=== PATIENT | female | born 1935 | race Hispanic/Latino ===

== ENCOUNTER 2016-11-28 12:57 | Emergency (ER) | payer MEDICARE, SELFPAY, OTHER ==
[2016-11-28 12:57] VITALS: BMI 24.5
[2016-11-28 13:09] VITALS: BP 146/90; PULSE 70; RESP 17; TEMP 97.9; O2SAT 95
[2016-11-28] MEDS ORDERED: TDAP Vaccine 0.5 mL Syr IM ONE (13:26)
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
[2016-11-28] MEDS ORDERED: Amoxicillin-Clav 875-125 mg Tab PO STA (14:11)
--- NOTE | 2016-11-28 14:12 | CT ---
PROCEDURE: CT HEAD WITHOUT CONTRAST. HISTORY: head injury/ pain COMPARISON: 03/19/2013 TECHNIQUE: Axial computed tomography images were obtained through the head/brain without intravenous contrast. Radiation dose: Total exam DLP = 689 mGy-cm. This CT exam was performed using one or more of the following dose reduction techniques: Automated exposure control, adjustment of the mA and/or kV according to patient size, and/or use of iterative reconstruction technique. FINDINGS: HEMORRHAGE: No intracranial hemorrhage. BRAIN: No mass effect or edema. 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 There is also an old infarct in the right parietal white matter. VENTRICLES: Unremarkable. No hydrocephalus. CALVARIUM: Unremarkable. PARANASAL SINUSES: Unremarkable as visualized. No significant inflammatory changes. MASTOID AIR CELLS: Unremarkable as visualized. No inflammatory changes. OTHER FINDINGS: None. IMPRESSION: No acute findings
--- NOTE | 2016-11-28 15:47 | RAD ---
PROCEDURE: Radiographs of the Left Forearm HISTORY: pain COMPARISON: None available. TECHNIQUE: Frontal and lateral views obtained. FINDINGS: BONES: No fracture or destructive lesion. JOINT SPACES: Unremarkable. OTHER FINDINGS: None. IMPRESSION: Unremarkable radiographs of the left forearm.
--- NOTE | 2016-11-28 15:48 | RAD ---
PROCEDURE: Left Hand Radiographs. HISTORY: pain COMPARISON: None. FINDINGS: BONES: Normal. No fracture. JOINTS: Mild degenerative changes in the PIP and DIP joints SOFT TISSUES: Normal. OTHER FINDINGS: None. IMPRESSION: No acute findings
== END 2016-11-28 15:21 | disposition home or self-care (01) ==
LOC: ED 12:57
DX: S50.812A Abrasion of left forearm, initial encounter (principal); S60.512A Abrasion of left hand, initial encounter; S51.812A Laceration without foreign body of left forearm, initial encounter; V43.52XA Car driver injured in collision with other type car in traffic accident, initial encounter; I10 Essential (primary) hypertension; Z23 Encounter for immunization; F17.210 Nicotine dependence, cigarettes, uncomplicated

== ENCOUNTER 2017-07-29 14:24 | Emergency (ER) | payer MEDICARE, SELFPAY ==
[2017-07-29] MEDS ORDERED: Nitroglycerin 2% Ointment Foilpak UD TOP STA (14:43)
[2017-07-29 14:44] VITALS: BMI 22.4
[2017-07-29 14:45] VITALS: O2SAT 100
--- NOTE | 2017-07-29 14:51 | ED PDOC ---
Arrival/HPI - General Chief Complaint: Shortness Of Breath Time Seen by Provider: 07/29/17 14:26 Historian: Patient, EMS - History of Present Illness Narrative History of Present Illness (Text): 07/29/17 14:45 A 81 year old female, whose past medical history includes CABG, CVA, hypothyroidism, hypertension, and hyperlipidemia, presents to the emergency department complaining of difficulty breathing that began today. Per EMS, patient's blood pressure was 220/100. No medications were distributed. Patient was seen immediately at bedside and patient was set on BiPAP and is comfortable here in the ER. Patient denies any fever, chills, body aches, cough, or any other complaints. PMD : Dr. Haley Past Medical History - Provider Review Nursing Documentation Reviewed: Yes - Tetanus Immunization Tetanus Immunization: Unknown - Reproductive Menopause: Yes - Cardiac Hx Hypertension: Yes Other/Comment: CABG - Neurological HX Cerebrovascular Accident: Yes - HEENT Hx HEENT Disorder: (vocal cord polyp removed) - Endocrine/Metabolic Hx Hypothyroidism: Yes - Hematological/Oncological Hx Blood Transfusions: No Hx Blood Transfusion Reaction: No - Musculoskeletal/Rheumatological Hx Falls: No - Gastrointestinal Other/Comment: hx. of polyp removal - Psychiatric Hx Anxiety: Yes Hx Substance Use: No - Surgical History Hx Open Heart Surgery: Yes Other/Comment: vocal cord polyp - Anesthesia Hx Anesthesia: Yes Hx Anesthesia Reactions: No Hx Malignant Hyperthermia: No - Suicidal Assessment Feels Threatened In Home Enviroment: No Family/Social History - Physician Review Nursing Documentation Reviewed: Yes Family/Social History: No Known Family HX Smoking Status: Current Some Days Smoker Hx Alcohol Use: No Hx Substance Use: No Hx Substance Use Treatment: No Allergies/Home Meds Allergies/Adverse Reactions: Allergies No Known Allergies Allergy (Verified 07/29/17 14:45) Home Medications: Home Meds Medication Instructions Recorded Confirmed Alprazolam 0.25 mg PO BID 01/08/12 03/19/13 Aspirin 81 mg PO DAILY 01/08/12 03/19/13 Clopidogrel [Plavix] 75 mg PO DAILY 01/08/12 03/19/13 Metoprolol Tartrate 50 mg PO BID 01/08/12 03/19/13 Simvastatin [Simvastatin] 03/19/13 03/19/13 Review of Systems - Physician Review All systems were reviewed & negative as marked: Yes - Review of Systems Constitutional: absent: Fevers, Night Sweats Respiratory: SOB. absent: Cough Musculoskeletal: absent: Myalgias Physical Exam Vital Signs Reviewed: Yes Vital Signs Temp Pulse Resp BP Pulse Ox 07/29/17 17:28 85 23 129/75 100 07/29/17 15:36 146/99 H 07/29/17 15:33 82 20 146/99 H 100 07/29/17 15:05 98.0 F 07/29/17 14:44 94 H 18 190/113 H 100 Temperature: Afebrile Blood Pressure: Hypertensive Pulse: Regular Respiratory Rate: Normal Appearance: Positive for: Well-Appearing Pain Distress: None Mental Status: Positive for: Alert and Oriented X 3 - Systems Exam Head: Present: Atraumatic, Normocephalic Pupils: Present: PERRL Extroacular Muscles: Present: EOMI Conjunctiva: Present: Normal Mouth: Present: Moist Mucous Membranes Neck: Present: Normal Range of Motion Respiratory/Chest: Present: Wheezes, Rales (diffused), Rhonchi Cardiovascular: Present: Regular Rate and Rhythm, Normal S1, S2. No: Murmurs Abdomen: Present: Normal Bowel Sounds. No: Tenderness, Distention, Peritoneal Signs Back: Present: Normal Inspection Upper Extremity: Present: Normal Inspection. No: Cyanosis, Edema Lower Extremity: Present: Edema (+1 bilaterally) Neurological: Present: GCS=15, CN II-XII Intact, Speech Normal Skin: Present: Warm, Dry, Normal Color. No: Rashes Psychiatric: Present: Alert, Oriented x 3, Normal Insight, Normal Concentration Medical Decision Making ED Course and Treatment: 07/29/17 14:46 Impression: 81 year old female with difficulty breathing. Physical exam shows lungs have diffused rales, wheezing, and rhonchi; +1 edema in lower extremities bilaterally. Differential Diagnosis included but are not limited to: CHF Exacerbation vs COPD Exacerbation vs Pneumonia Plan: -- EKG -- Chest X-ray -- Arterial Blood Gas -- Venous Blood Gas -- Labs -- Lasix 40 mg IV -- Nitroglycerin paste -- Blood Culture -- Urine Culture -- Urinalysis -- Reassess and disposition Prior Visits: Notes and results from previous visits were reviewed. Patient was last seen in the emergency department on 11/28/2016 for left forearm left hand abrasion. Patient was discharged home. Progress Notes: CXR PORTABLE IMPRESSION: Mild vascular and interstitial congestion right greater than left 07/29/17 15:35 Patient is feeling much better but still having symptoms. Lungs have wheezing/ rhonchi. Treating with Duonebs and solumdrol. CXR reviewed and noted. Repeat 146/99 07/29/17 15:45 EKG: NSR at 89bpm with SA, no ST elevations, q waves anteriorly, nl intervals. Case discussed with Dr. Rivera who will accept patient to his service. 07/29/17 17:50 ABG appreciated. FiO2 decreased from 100 to 40 percent. Will continue BiPap. Case was discussed with Dr. Giraldo who agrees with treatment and recommends adding Lovenox SC. - Critical Care Critical Care Minutes: 30 minutes - Lab Interpretations Lab Results: 07/29/17 14:45 07/29/17 14:45 Lab Results 07/29/17 16:17: pCO2 43, pO2 394.0 H, HCO3 27.9, ABG pH 7.42, ABG Total CO2 29.2 H, ABG O2 Saturation 99.9 H, ABG O2 Content 19.8, ABG Base Excess 2.9, ABG Hemoglobin 13.9, ABG Carboxyhemoglobin 2.8 H, POC ABG HHb (Measured) 0.1, ABG Methemoglobin 0.9, ABG O2 Capacity 19.8, Hgb O2 Saturation 96.2, FiO2 100.0 07/29/17 14:45: Sodium 141, Chloride 98, Potassium 3.7, Carbon Dioxide 28, Anion Gap 19, BUN 15, Creatinine 0.9, Est GFR ( Amer) > 60, Est GFR (Non- Af Amer) > 60, Random Glucose 123 H, Calcium 9.4, Total Bilirubin 0.8, AST 63 H , ALT 58 H, Alkaline Phosphatase 182 H, Lactate Dehydrogenase 892 H, Total Creatine Kinase 163, Troponin I 0.02 D, NT-Pro-B Natriuret Pep 3950 H, Total Protein 8.0, Albumin 4.6, Globulin 3.4, Albumin/Globulin Ratio 1.4 07/29/17 14:45: pO2 42, VBG pH 7.27 L, VBG pCO2 65.0 H, VBG HCO3 29.8 H, VBG Total CO2 31.8 H, VBG O2 Sat (Calc) 76.1 H, VBG Base Excess 1.2, VBG Potassium 4.1, Sodium 136.0, Chloride 98.0, Glucose 124 H, Lactate 1.4, FiO2 21.0, Venous Blood Potassium 4.1 07/29/17 14:45: PT 11.4, INR 1.00, APTT 33.3 07/29/17 14:45: WBC 6.0 D, RBC 5.02, Hgb 15.3, Hct 45.7, MCV 91.0, MCH 30.5, MCHC 33.5, RDW 19.3 H, Plt Count 137, MPV 10.8, Gran % 81.0 H, Lymph % (Auto) 10.2 L, [place] % (Auto) 8.3 H, Eos % (Auto) 0.3 L, Baso % (Auto) 0.2, Gran # 4.85 , Lymph # (Auto) 0.6 L, [place] # (Auto) 0.5, Eos # (Auto) 0.0, Baso # (Auto) 0.01 - RAD Interpretation Radiology Orders: 07/29/17 14:42 CHEST PORTABLE [RAD] Stat - Medication Orders Current Medication Orders: Discontinued Medications Albuterol/Ipratropium (Duoneb 3 Mg/0.5 Mg (3 Ml) Ud) 3 ml IH Q15M ANA MARÍA Stop: 07/29/17 16:16 Last Admin: 07/29/17 16:42 Dose: 3 ml Aspirin (Aspirin) 325 mg PO STAT STA Stop: 07/29/17 17:37 Enoxaparin Sodium (Lovenox) 50 mg SC STAT STA PRN Reason: Protocol Stop: 07/29/17 17:37 Furosemide (Lasix) 40 mg IVP STAT STA Stop: 07/29/17 14:42 Last Admin: 07/29/17 15:36 Dose: 40 mg MAR Blood Pressure Document 07/29/17 15:36 LA (Rec: 07/29/17 15:37 LA [id number]) Blood Pressure Blood Pressure (100/60-150/90) 146/99 IVP Administration Document 07/29/17 15:36 LA (Rec: 07/29/17 15:37 LA [id number]) Charges for Administration # of IVP Administrations 1 Methylprednisolone (Solu-Medrol) 125 mg IVP STAT STA Stop: 07/29/17 15:33 Last Admin: 07/29/17 16:27 Dose: 125 mg IVP Administration Document 07/29/17 16:27 LA (Rec: 07/29/17 16:27 [id number]) Charges for Administration # of IVP Administrations 1 Nitroglycerin (Nitro-Bid 2% Oint) 1 ea TOP STAT STA Stop: 07/29/17 14:44 Last Admin: 07/29/17 15:36 Dose: 1 ea - Scribe Statement The provider has reviewed the documentation as recorded by the Alex Manuel Provider Scribe Attestation: All medical record entries made by the Alex were at my direction and personally dictated by me. I have reviewed the chart and agree that the record accurately reflects my personal performance of the history, physical exam, medical decision making, and the department course for this patient. I have also personally directed, reviewed, and agree with the discharge instructions and disposition. Disposition/Present on Arrival - Present on Arrival Any Indicators Present on Arrival: No History of DVT/PE: No History of Uncontrolled Diabetes: No Urinary Catheter: No History of Decub. Ulcer: No History Surgical Site Infection Following: None - Disposition Have Diagnosis and Disposition been Completed?: Yes Diagnosis: Congestive heart failure Disposition Time: 15:37 Patient Plan: Admission Patient Problems: Current Active Problems Problem Status Onset Congestive heart failure Acute Condition: GUARDED
[2017-07-29 15:06] VITALS: TEMP 98
--- NOTE | 2017-07-29 15:11 | RAD ---
HISTORY: sob r/o chf r/o pna COMPARISON: 03/21/2013 FINDINGS: LUNGS: No active pulmonary disease. PLEURA: No significant pleural effusion identified, no pneumothorax apparent. CARDIOVASCULAR: Mild vascular and interstitial congestion right greater than left. The heart is normal in size. OSSEOUS STRUCTURES: Sternal wires VISUALIZED UPPER ABDOMEN: Normal. OTHER FINDINGS: None. IMPRESSION: Mild vascular and interstitial congestion right greater than left
[2017-07-29 15:12] LABS: BASO # 0.01 K/mm3 (0.0-2.0); BASO % 0.2 % (0.0-3.0); EOS % 0.3 % (1.5-5.0); GRAN # 4.85 (1.4-6.5); HEMOGLOBIN 15.3 g/dL (12.0-16.0); LYMPH # 0.6 (1.2-3.4); LYMPH % 10.2 % (22.0-35.0); MEAN CORPUSCULAR HEMOGLOBIN 30.5 pg (25.0-35.0); MEAN CORPUSCULAR HGB CONC 33.5 g/dl (31.0-37.0); MEAN PLATELET VOLUME 10.8 fl (7.0-11.0); MONO # 0.5 (0.1-0.6); MONO % 8.3 % (1.0-6.0); RBC 5.02 10^6/uL (3.5-6.1); RED CELL DISTRIBUTION WIDTH 19.3 % (11.5-14.5)
[2017-07-29 15:18] LABS: VENOUS BLOOD GAS BASE EXCESS 1.2 mmol/L (0.0-2.0); VENOUS BLOOD GAS PO2 42 mm/Hg (30-55); VENOUS BLOOD PH 7.27 (7.32-7.43)
[2017-07-29 15:20] LABS: PARTIAL THROMBOPLASTIN TIME 33.3 Seconds (25.1-36.5); PROTHROMBIN TIME 11.4 SECONDS (9.4-12.5)
[2017-07-29] MEDS: Albuterol-Ipratrop 3 mg / 0.5 (3 ml) UD IH SCH ×3 (15:37→16:42)
[2017-07-29 15:41] LABS: B-TYPE NATRIURETIC PEPTIDE 3950 pg/mL (0-450); TROPONIN I 0.02 ng/mL
[2017-07-29 15:50] LABS: ALB/GLOB RATIO 1.4 (1.1-1.8); ALBUMIN 4.6 g/dL (3.0-4.8); ALT/SGPT 58 U/L (7-56); AST/SGOT 63 U/L (14-36); BLOOD UREA NITROGEN 15 mg/dL (7-21); CALCIUM 9.4 mg/dL (8.4-10.5); GFR AFRICAN-AMERICAN > 60; GFR NON-AFRICAN AMERICAN > 60
[2017-07-29 16:20] LABS: ARTERIAL BLOOD GAS HCO3 27.9 mmol/L (21-28); ARTERIAL BLOOD GAS HEMOGLOBIN 13.9 g/dL (11.7-17.4); ARTERIAL BLOOD GAS O2 CAPACITY 19.8 mL/dl (16-24); ARTERIAL BLOOD GAS O2 CONTENT 19.8 ML/dl (15-23); ARTERIAL BLOOD GAS O2 SAT 99.9 % (95-98); ARTERIAL BLOOD GAS PCO2 43 mm/Hg (35-45); ARTERIAL BLOOD GAS PH 7.42 (7.35-7.45); ARTERIAL BLOOD GAS TCO2 29.2 mmol.L (22-28)
[2017-07-29] MEDS ORDERED: Enoxaparin 60 mg Syringe SC STA (17:36)
--- NOTE | 2017-07-29 20:41 | ED PDOC ---
Physical Exam Vital Signs Reviewed: Yes Vital Signs Temp Pulse Resp BP Pulse Ox 07/29/17 17:28 85 23 129/75 100 07/29/17 15:36 146/99 H 07/29/17 15:33 82 20 146/99 H 100 07/29/17 15:05 98.0 F 07/29/17 14:44 94 H 18 190/113 H 100 Blood Pressure: Hypertensive Pulse: Tachycardic Respiratory Rate: Normal Appearance: Positive for: Well-Appearing, Non-Toxic, Comfortable Pain Distress: None Mental Status: Positive for: Alert and Oriented X 3 Medical Decision Making ED Course and Treatment: 07/29/17 19:53 Patient signed out to me by Dr. Hanson. Patient will be admitted for CHF. 07/29/17 20:39 Leaving Against Medical Advice (AMA): The patient is choosing to leave against medical advice. I have personally explained to the patient that choosing to do so may result in permanent bodily harm or . I have discussed at great length that without further evaluation and monitoring there may be unforeseen circumstances and/or deterioration causing permanent bodily harm or as a result of their choice. The patient is alert, oriented, and shows the mental capacity to make clear decisions regarding the patients health care at this time. The patient continues to wish to leave against medical advice and refuses to sign the AMA form. In light of the patients decision to leave against medical advice, follow-up has been arranged and the patient is aware of the importance to following up as instructed. The patient has been advised that they should return to the emergency room immediately if they change their mind at any time, or if their condition begins to change or worsen in any way. - Lab Interpretations Lab Results: 07/29/17 14:45 07/29/17 14:45 Lab Results 07/29/17 16:17: pCO2 43, pO2 394.0 H, HCO3 27.9, ABG pH 7.42, ABG Total CO2 29.2 H, ABG O2 Saturation 99.9 H, ABG O2 Content 19.8, ABG Base Excess 2.9, ABG Hemoglobin 13.9, ABG Carboxyhemoglobin 2.8 H, POC ABG HHb (Measured) 0.1, ABG Methemoglobin 0.9, ABG O2 Capacity 19.8, Hgb O2 Saturation 96.2, FiO2 100.0 07/29/17 14:45: Sodium 141, Chloride 98, Potassium 3.7, Carbon Dioxide 28, Anion Gap 19, BUN 15, Creatinine 0.9, Est GFR ( Amer) > 60, Est GFR (Non- Af Amer) > 60, Random Glucose 123 H, Calcium 9.4, Total Bilirubin 0.8, AST 63 H , ALT 58 H, Alkaline Phosphatase 182 H, Lactate Dehydrogenase 892 H, Total Creatine Kinase 163, Troponin I 0.02 D, NT-Pro-B Natriuret Pep 3950 H, Total Protein 8.0, Albumin 4.6, Globulin 3.4, Albumin/Globulin Ratio 1.4 07/29/17 14:45: pO2 42, VBG pH 7.27 L, VBG pCO2 65.0 H, VBG HCO3 29.8 H, VBG Total CO2 31.8 H, VBG O2 Sat (Calc) 76.1 H, VBG Base Excess 1.2, VBG Potassium 4.1, Sodium 136.0, Chloride 98.0, Glucose 124 H, Lactate 1.4, FiO2 21.0, Venous Blood Potassium 4.1 07/29/17 14:45: PT 11.4, INR 1.00, APTT 33.3 07/29/17 14:45: WBC 6.0 D, RBC 5.02, Hgb 15.3, Hct 45.7, MCV 91.0, MCH 30.5, MCHC 33.5, RDW 19.3 H, Plt Count 137, MPV 10.8, Gran % 81.0 H, Lymph % (Auto) 10.2 L, [place] % (Auto) 8.3 H, Eos % (Auto) 0.3 L, Baso % (Auto) 0.2, Gran # 4.85 , Lymph # (Auto) 0.6 L, [place] # (Auto) 0.5, Eos # (Auto) 0.0, Baso # (Auto) 0.01 - RAD Interpretation Radiology Orders: 07/29/17 14:42 CHEST PORTABLE [RAD] Stat - Medication Orders Current Medication Orders: Discontinued Medications Albuterol/Ipratropium (Duoneb 3 Mg/0.5 Mg (3 Ml) Ud) 3 ml IH Q15M ANA MARÍA Stop: 07/29/17 16:16 Last Admin: 07/29/17 16:42 Dose: 3 ml Aspirin (Aspirin) 325 mg PO STAT STA Stop: 07/29/17 17:37 Last Admin: 07/29/17 19:18 Dose: 325 mg Enoxaparin Sodium (Lovenox) 50 mg SC STAT STA PRN Reason: Protocol Stop: 07/29/17 17:37 Last Admin: 07/29/17 19:18 Dose: 50 mg Subcutaneous Administrations Document 07/29/17 19:18 LA (Rec: 07/29/17 19:18 LA [id number]) Injection Site MAR Injection Site Left Arm Charges for Administration # of Subcutaneous Administrations 1 Furosemide (Lasix) 40 mg IVP STAT STA Stop: 07/29/17 14:42 Last Admin: 07/29/17 15:36 Dose: 40 mg MAR Blood Pressure Document 07/29/17 15:36 LA (Rec: 07/29/17 15:37 LA [id number]) Blood Pressure Blood Pressure (100/60-150/90) 146/99 IVP Administration Document 07/29/17 15:36 LA (Rec: 07/29/17 15:37 LA [id number]) Charges for Administration # of IVP Administrations 1 Methylprednisolone (Solu-Medrol) 125 mg IVP STAT STA Stop: 07/29/17 15:33 Last Admin: 07/29/17 16:27 Dose: 125 mg IVP Administration Document 07/29/17 16:27 LA (Rec: 07/29/17 16:27 LA [id number]) Charges for Administration # of IVP Administrations 1 Nitroglycerin (Nitro-Bid 2% Oint) 1 ea TOP STAT STA Stop: 07/29/17 14:44 Last Admin: 07/29/17 15:36 Dose: 1 ea - PA / ASSURANCE OFFICER / Resident Statement MD/DO has reviewed & agrees with the documentation as recorded. - Scribe Statement The provider has reviewed the documentation as recorded by the Alex Peguero Provider Tyleribe Attestation: All medical record entries made by the Tyleribemmanuel were at my direction and personally dictated by me. I have reviewed the chart and agree that the record accurately reflects my personal performance of the history, physical exam, medical decision making, and the department course for this patient. I have also personally directed, reviewed, and agree with the discharge instructions and disposition. Disposition/Present on Arrival - Present on Arrival Any Indicators Present on Arrival: No History of DVT/PE: No History of Uncontrolled Diabetes: No Urinary Catheter: No History of Decub. Ulcer: No History Surgical Site Infection Following: None - Disposition Have Diagnosis and Disposition been Completed?: Yes Diagnosis: Congestive heart failure Disposition: AGAINST MEDICAL ADVICE Disposition Time: 20:30 Condition: GUARDED Discharge Instructions (ExitCare): Heart Failure (ED) Referrals: Kang Haley MD [Primary Care Provider] -
[2017-07-29 20:50] VITALS: BP 132/74; PULSE 84; RESP 22
--- NOTE | 2017-07-29 22:04 | CP.PCM.PN ---
Subjective - Date & Time of Evaluation Date of Evaluation: 07/29/17 Time of Evaluation: 20:00 - Subjective Subjective: pt was admitted for sob ,copd and chf wants to sign AMA . states she will be more relaxed at home. Objective - Vital Signs/Intake and Output Vital Signs (last 24 hours): Temp Pulse Resp BP Pulse Ox 98.0 F 84 22 132/74 100 07/29/17 15:05 07/29/17 19:15 07/29/17 19:15 07/29/17 19:15 07/29/17 19:15 - Labs Labs: 07/29/17 14:45 07/29/17 14:45 PT 11.4 SECONDS (9.4-12.5) 07/29/17 14:45 INR 1.00 (0.93-1.08) 07/29/17 14:45 APTT 33.3 Seconds (25.1-36.5) 07/29/17 14:45 - Constitutional Appears: No Acute Distress - Head Exam Head Exam: NORMOCEPHALIC - Eye Exam Eye Exam: Normal appearance Pupil Exam: PERRL - ENT Exam ENT Exam: Mucous Membranes Moist - Neck Exam Neck Exam: Full ROM - Respiratory Exam Respiratory Exam: Wheezes - Cardiovascular Exam Cardiovascular Exam: RRR, +S1, +S2 - Rectal Exam Rectal Exam: Deferred - Extremities Exam Extremities Exam: Full ROM - Neurological Exam Neurological Exam: Alert, CN II-XII Intact, Oriented x3 - Psychiatric Exam Psychiatric exam: Normal Affect - Skin Skin Exam: Dry, Warm Assessment and Plan - Assessment and Plan (Free Text) Assessment: AMA. CHF COPD. Plan: PT was explained the risk of leaving og continued and worse sob arrythmia and . PMD aware.
--- NOTE | 2017-07-30 00:33 | CARD ---
APPROVED REPORT EKG Measurement Heart [id number] <Conclusion> Normal sinus rhythm with sinus arrhythmia Septal infarct, age undetermined Abnormal ECG
[2017-07-30] MEDS ORDERED: Enoxaparin 60 mg Syringe SC SCH (10:00)
== END 2017-07-29 20:35 | disposition left against medical advice (07) ==
LOC: ED 14:24 → ERH 16:57 → UNDOADMIN 16:57
DX: I50.9 Heart failure, unspecified (principal); I10 Essential (primary) hypertension; E78.5 Hyperlipidemia, unspecified; E03.9 Hypothyroidism, unspecified; J44.9 Chronic obstructive pulmonary disease, unspecified
CPT/HCPCS: 36600; 71045; 80053; 82550; 82803; 83615; 83880; 84484; 85025; 85610; 85730; 87040; 93005; 96372; 96374; 96375; 99285; J1650; J1940; J2930

== ENCOUNTER 2017-12-23 08:54 | Inpatient (IN) | payer MEDICARE, OTHER ==
--- NOTE | 2017-12-23 09:26 | ED PDOC ---
Arrival/HPI - General Chief Complaint: Trauma Time Seen by Provider: 12/23/17 09:02 Historian: Patient - History of Present Illness Narrative History of Present Illness (Text): 12/23/17 09:23 82 y/o female, pmh including COPD and CHF?, nkda, biba for fall and failure to thrive? x 1 day. Pt. stated that she lives a lone, no one takes care of her, stated that she is here because the neighbor call the ambulance as she has been feeling fatigue and tired for the past few days, associated with a fall this morning, moving all extremities, no neck or back pain, stated that she doesn't recall hitting her head. Pt. stated that her last visited her doctor is over several years ago and doesn't recall the pmd's name. Pt. has no chest pain or shortness of breath, no palpitation, no night sweat, no dizziness, no change in vision, no other medical or psychological complaints. Past Medical History - Provider Review Nursing Documentation Reviewed: Yes - Infectious Disease Hx of Infectious Diseases: None - Tetanus Immunization Tetanus Immunization: Unknown - Cardiac Hx Hypertension: Yes Other/Comment: CABG - Neurological HX Cerebrovascular Accident: Yes - HEENT Hx HEENT Disorder: (vocal cord polyp removed) - Endocrine/Metabolic Hx Hypothyroidism: Yes - Hematological/Oncological Hx Blood Transfusions: No Hx Blood Transfusion Reaction: No - Musculoskeletal/Rheumatological Hx Falls: Yes - Gastrointestinal Other/Comment: hx. of polyp removal - Psychiatric Hx Anxiety: Yes Hx Substance Use: No - Surgical History Hx Open Heart Surgery: Yes Other/Comment: vocal cord polyp - Anesthesia Hx Anesthesia: Yes Hx Anesthesia Reactions: No Hx Malignant Hyperthermia: No - Suicidal Assessment Feels Threatened In Home Enviroment: No Family/Social History - Physician Review Nursing Documentation Reviewed: Yes Family/Social History: Unknown Family HX Smoking Status: Current Some Days Smoker Hx Alcohol Use: No Hx Substance Use: No Hx Substance Use Treatment: No Allergies/Home Meds Allergies/Adverse Reactions: Allergies No Known Allergies Allergy (Verified 12/23/17 09:07) Home Medications: Home Meds Medication Instructions Recorded Confirmed Unobtainable 12/23/17 12/23/17 Review of Systems - Review of Systems Constitutional: Fatigue. absent: Fevers Eyes: absent: Vision Changes ENT: absent: Hearing Changes Respiratory: absent: SOB, Cough Cardiovascular: absent: Chest Pain Gastrointestinal: absent: Abdominal Pain, Nausea, Vomiting Musculoskeletal: absent: Arthralgias, Back Pain Skin: absent: Rash, Pruritis Neurological: absent: Headache, Dizziness, Focal Weakness, Speech Changes, Facial Droop Psychiatric: absent: Anxiety, Depression, Suicidal Ideation Physical Exam Vital Signs Reviewed: Yes Vital Signs Temp Pulse Resp BP Pulse Ox 12/23/17 11:32 50 L 17 156/87 H 97 12/23/17 09:23 97.7 F 53 L 16 165/85 H 96 Temperature: Afebrile Blood Pressure: Hypertensive Pulse: Bradycardic Respiratory Rate: Normal Appearance: Positive for: Well-Appearing, Non-Toxic, Comfortable, Unkept Pain Distress: None Mental Status: Positive for: Alert and Oriented X 3 - Systems Exam Head: Present: Atraumatic, Normocephalic. No: Tenderness, Contusion, Swelling, Ecchymosis, Abrasion, Laceration, Other Pupils: Present: PERRL Extroacular Muscles: Present: EOMI Conjunctiva: Present: Normal Ears: Present: NORMAL TM, Normal Canal. No: Erythema Mouth: Present: Moist Mucous Membranes Nose (External): Present: Atraumatic. No: Abrasion, Contusion, Laceration Nose (Internal): Present: Normal Inspection, No Active Bleeding. No: Rhinorrhea , Septal Hematoma, Epistaxis Neck: Present: Normal Range of Motion, Trachea Midline. No: MIDLINE TENDERNESS , Paraspinal Tenderness, Lymphadenopathy Respiratory/Chest: Present: Clear to Auscultation, Good Air Exchange. No: Respiratory Distress, Accessory Muscle Use, Wheezes, Retracting, Rhonchi Cardiovascular: Present: Regular Rate and Rhythm, Normal S1, S2, Bradycardic. No: Murmurs, Rub, Gallop, Muffled Abdomen: No: Tenderness, Distention, Peritoneal Signs, Rebound, Guarding Back: Present: Normal Inspection Upper Extremity: Present: Normal Inspection. No: Cyanosis, Edema Lower Extremity: Present: Normal Inspection. No: Edema Neurological: Present: GCS=15, CN II-XII Intact, Speech Normal, Motor Func Grossly Intact, Gait Normal, Memory Normal, Other (no drift) Skin: Present: Warm, Dry, Normal Color. No: Rashes Psychiatric: Present: Alert, Oriented x 3, Normal Insight, Normal Concentration Medical Decision Making ED Course and Treatment: 12/23/17 09:26 Differential: UTI vs. Dehydration vs. Electrolyte imbalance vs. Intracranial bleed vs. Drug Overdose vs. CHF -Labs/ua/uds/bnp -CT head -Chest xray -monitoring coordinator -IVF @ 75cc/hr -Observe and reassess 12/23/17 12:40 -EKG: Sinus Bradycardia @ 52 BPM, no ST elevation or depression, chronic T wave inversion noted on the aVL and V2, no acute ST or T wave changes compared with previous ekg. -Chest xray: ER wet read: COPD changes with cardiomegally noted, no obvious consolidation -CT head No acute intracranial abnormalities. No significant findings to account for the clinical presentation. No significant interval change compared to the prior examination(s). -Labs show no elevation of wbc and normal bun/creatinine level, no acute findings except BNP 3030 from 3950 along with magnesium 2.4 (slightly elevated/ normal bun/creatinine function) -UA show +UTI, Urine culture and IV rocephine ordered. -Pt. is fatigue/fall today/UTI noted, no one takes care of her at home and lives alone, discussed with the patient about all labs/radiology studies and advised to keep her at the hospital for observation status until she feels better. Pt. has CHF with improving BNP and no pedal edema, no emergent indication of the lasix in the ER at this time. -Paging Dr. Chapa as her pmd is Dr. Kd Haley. 12/23/17 13:02 -I spoke to DR. Chapa, discussed about the case/labs/radiology studies, stated that he send the patient to the ER and request this to be full admission , explained to DR. Abad and he would put in the admissin order. - Lab Interpretations Lab Results: 12/23/17 09:15 12/23/17 09:15 Lab Results 12/23/17 11:30: Urine Opiates Screen Negative, Urine Methadone Screen Negative, Ur Barbiturates Screen Negative, Ur Phencyclidine Scrn Negative, Ur Amphetamines Screen Negative, U Benzodiazepines Scrn Negative, U Oth Cocaine Metabols Negative, U Cannabinoids Screen Negative 12/23/17 11:30: Urine Color Yellow, Urine Appearance Turbid, Urine pH 6.5, Ur Specific [place] 1.010, Urine Protein Trace H, Urine Glucose (UA) Negative, Urine Ketones Negative, Urine Blood Trace-intact H, Urine Nitrate Positive H, Urine Bilirubin Negative, Urine Urobilinogen 0.2, Ur Leukocyte Esterase Moderate H, Urine RBC 0 - 2, Urine WBC 10 - 15, Ur Epithelial Cells 3 - 4, Urine Bacteria Many 12/23/17 09:15: Salicylates < 1 L, Acetaminophen < 10.0 L 12/23/17 09:15: Sodium 141, Potassium 4.2, Chloride 102, Carbon Dioxide 29, Anion Gap 14, BUN 19, Creatinine 0.9, Est GFR ( Amer) > 60, Est GFR (Non- Af Amer) 60, Random Glucose 124 H, Calcium 8.9, Magnesium 2.4 H, Total Bilirubin 0.8, AST 44 H D, ALT 38, Alkaline Phosphatase 107, NT-Pro-B Natriuret Pep 3030 H, Total Protein 7.0, Albumin 4.1, Globulin 2.9, Albumin/Globulin Ratio 1.4 12/23/17 09:15: WBC 8.1 D, RBC 4.53, Hgb 13.9, Hct 41.1, MCV 90.7, MCH 30.7, MCHC 33.8, RDW 16.0 H, Plt Count 140, MPV 10.1, Gran % 81.8 H, Lymph % (Auto) 11.6 L, [place] % (Auto) 5.5, Eos % (Auto) 0.7 L, Baso % (Auto) 0.4, Gran # 6.60 H , Lymph # (Auto) 0.9 L, [place] # (Auto) 0.4, Eos # (Auto) 0.1, Baso # (Auto) 0.03 I have reviewed the lab results: Yes Interpretation: Abnormal lab values - RAD Interpretation Radiology Orders: 12/23/17 09:21 HEAD W/O CONTRAST [CT] Stat CHEST PORTABLE [RAD] Stat CT Head: PROCEDURE: CT HEAD WITHOUT CONTRAST. HISTORY: fall COMPARISON: 11/28/2016 TECHNIQUE: Axial computed tomography images were obtained through the head/brain without intravenous contrast. Coronal and sagittal reconstructed images. Radiation dose: Total exam DLP = 767.94 mGy-cm. This CT exam was performed using one or more of the following dose reduction techniques: Automated exposure control, adjustment of the mA and/or kV according to patient size, and/or use of iterative reconstruction technique. FINDINGS: HEMORRHAGE: No intracranial hemorrhage. BRAIN: No mass effect or edema. Cortical and cerebellar atrophy, periventricular small vessel disease. 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 Right basal ganglia areas of infarction are also a stable finding. VENTRICLES: Unremarkable. No hydrocephalus. CALVARIUM: Unremarkable. PARANASAL SINUSES: Unremarkable as visualized. No significant inflammatory changes. MASTOID AIR CELLS: Unremarkable as visualized. No inflammatory changes. OTHER FINDINGS: Focal soft tissue swelling scalp posterior right parietal region. IMPRESSION: No acute intracranial abnormalities. No significant findings to account for the clinical presentation. No significant interval change compared to the prior examination(s). Chest xray: HISTORY: medical clearance COMPARISON: 07/29/2017 FINDINGS: LUNGS: No active pulmonary disease. PLEURA: No significant pleural effusion identified, no pneumothorax apparent. CARDIOVASCULAR: Cardiomegaly, No radiographic findings to suggest acute or significant cardiovascular disease. Incidental Finding(s): Postoperative changes related to sternotomy. OSSEOUS STRUCTURES: No significant abnormalities. VISUALIZED UPPER ABDOMEN: Normal. OTHER FINDINGS: None. IMPRESSION: No active disease. No significant interval change compared to the prior examination(s). Concordant results with the preliminary interpretation rendered by the emergency department physician\ALAN at the conclusion of the procedure. Medical Technologist Blood Bank: Radiologist - EKG Interpretation EKG Interpretation (Text): 12/23/17 10:02 -EKG: Sinus Bradycardia @ 52 BPM, no ST elevation or depression, chronic T wave inversion noted on the aVL and V2, no acute ST or T wave changes compared with previous ekg. Interpreted by ED Physician: Yes Type: 12 lead EKG Comparison: Com.w/previous EKG - Medication Orders Current Medication Orders: Sodium Chloride (Sodium Chloride 0.9%) 1,000 mls @ 75 mls/hr IV .[id number] ANA MARÍA Last Admin: 12/23/17 09:26 Dose: 75 mls/hr eMAR Start Stop Document 12/23/17 09:26 SF (Rec: 12/23/17 09:26 SF [id number]) Intravenous Solution Start Date 12/23/17 Start Time 09:26 End Date 12/23/17 Ceftriaxone Sodium (Rocephin 1 Gram Ivpb) 1 gm in 100 mls @ 200 mls/hr IVPB STAT STA PRN Reason: Protocol Stop: 12/23/17 13:03 Last Admin: 12/23/17 12:38 Dose: 200 mls/hr eMAR Start Stop Document 12/23/17 12:38 SF (Rec: 12/23/17 12:39 SF [id number]) Intravenous Solution Start Date 12/23/17 Start Time 12:38 End Date 12/23/17 End time 13:10 Total Infusion Time 32 - PA / INGOT PASSER / Resident Statement / has reviewed & agrees with the documentation as recorded. Disposition/Present on Arrival - Present on Arrival Any Indicators Present on Arrival: No History of DVT/PE: No History of Uncontrolled Diabetes: No Urinary Catheter: No History of Decub. Ulcer: No History Surgical Site Infection Following: None - Disposition Have Diagnosis and Disposition been Completed?: Yes Diagnosis: UTI (urinary tract infection), Failure to thrive in adult, CHF (congestive heart failure) Disposition: HOSPITALIZED Disposition Time: 12:42 Patient Plan: Admission Patient Problems: Current Active Problems Problem Status Onset UTI (urinary tract infection) Acute Failure to thrive in adult Acute CHF (congestive heart failure) Acute Condition: STABLE Discharge Instructions (ExitCare): Heart Failure (ED) Forms: [employer] (Vietnamese)
[2017-12-23] MEDS ORDERED: Sodium Chloride 0.9% 1,000 ML IV SCH (09:30)
[2017-12-23 09:47] LABS: BASO # 0.03 K/mm3 (0.0-2.0); BASO % 0.4 % (0.0-3.0); EOS # 0.1 (0.0-0.7); EOS % 0.7 % (1.5-5.0); GRAN # 6.6 (1.4-6.5); GRAN % 81.8 % (50.0-68.0); HEMOGLOBIN 13.9 g/dL (12.0-16.0); LYMPH # 0.9 (1.2-3.4); LYMPH % 11.6 % (22.0-35.0); MEAN CELL VOLUME 90.7 fl (80.0-105.0); MEAN CORPUSCULAR HEMOGLOBIN 30.7 pg (25.0-35.0); MEAN CORPUSCULAR HGB CONC 33.8 g/dl (31.0-37.0); MEAN PLATELET VOLUME 10.1 fl (7.0-11.0); MONO # 0.4 (0.1-0.6); MONO % 5.5 % (1.0-6.0); RBC 4.53 10^6/uL (3.5-6.1); WHITE BLOOD COUNT 8.1 10^3/ul (4.5-11.0)
[2017-12-23 09:48] LABS: ACETAMINOPHEN < 10.0 ug/ml (10.0-20.0); ALB/GLOB RATIO 1.4 (1.1-1.8); ALBUMIN 4.1 g/dL (3.0-4.8); ALT/SGPT 38 U/L (7-56); AST/SGOT 44 U/L (14-36); BLOOD UREA NITROGEN 19 mg/dL (7-21); CALCIUM 8.9 mg/dL (8.4-10.5); GFR AFRICAN-AMERICAN > 60; GFR NON-AFRICAN AMERICAN 60; SALICYLATE < 1 mg/dL (2.0-20.0)
[2017-12-23 09:56] LABS: B-TYPE NATRIURETIC PEPTIDE 3030 pg/mL (0-450)
--- NOTE | 2017-12-23 10:43 | CT ---
PROCEDURE: CT HEAD WITHOUT CONTRAST. HISTORY: fall COMPARISON: 11/28/2016 TECHNIQUE: Axial computed tomography images were obtained through the head/brain without intravenous contrast. Coronal and sagittal reconstructed images. Radiation dose: Total exam DLP = 767.94 mGy-cm. This CT exam was performed using one or more of the following dose reduction techniques: Automated exposure control, adjustment of the mA and/or kV according to patient size, and/or use of iterative reconstruction technique. FINDINGS: HEMORRHAGE: No intracranial hemorrhage. BRAIN: No mass effect or edema. Cortical and cerebellar atrophy, periventricular small vessel disease. 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 Right basal ganglia areas of infarction are also a stable finding. VENTRICLES: Unremarkable. No hydrocephalus. CALVARIUM: Unremarkable. PARANASAL SINUSES: Unremarkable as visualized. No significant inflammatory changes. MASTOID AIR CELLS: Unremarkable as visualized. No inflammatory changes. OTHER FINDINGS: Focal soft tissue swelling scalp posterior right parietal region. IMPRESSION: No acute intracranial abnormalities. No significant findings to account for the clinical presentation. No significant interval change compared to the prior examination(s).
--- NOTE | 2017-12-23 11:43 | RAD ---
HISTORY: medical clearance COMPARISON: 07/29/2017 FINDINGS: LUNGS: No active pulmonary disease. PLEURA: No significant pleural effusion identified, no pneumothorax apparent. CARDIOVASCULAR: Cardiomegaly, No radiographic findings to suggest acute or significant cardiovascular disease. Incidental Finding(s): Postoperative changes related to sternotomy. OSSEOUS STRUCTURES: No significant abnormalities. VISUALIZED UPPER ABDOMEN: Normal. OTHER FINDINGS: None. IMPRESSION: No active disease. No significant interval change compared to the prior examination(s). Concordant results with the preliminary interpretation rendered by the emergency department physician procedure.
[2017-12-23 12:17] LABS: PH,URINE 6.5 (4.7-8.0); URINE BILIRUBIN NEGATIVE (NEGATIVE); URINE BLOOD TRACE-INTACT (NEGATIVE); URINE GLUCOSE (UA) NEGATIVE (NEGATIVE); URINE LEUKOCYTE ESTERASE MODERATE Leu/uL (NEGATIVE); URINE PROTEIN TRACE mg/dL (<30 mg/dL); URINE UROBILINOGEN 0.2 E.U./dL (<1 E.U./dL)
[2017-12-23 12:20] LABS: URINE APPEARANCE TURBID (CLEAR); URINE COLOR YELLOW (YELLOW)
[2017-12-23 12:21] LABS: BARBITURATES, UR NEGATIVE (NEGATIVE); BENZODIAZEPINES, UR NEGATIVE (NEGATIVE); OPIATES, UR NEGATIVE (NEGATIVE); PHENCYCLIDINE, UR NEGATIVE (NEGATIVE)
[2017-12-23 12:22] LABS: URINE BACTERIA MANY (NEG); URINE RBC 0 - 2 /hpf (0-2)
[2017-12-23] MEDS ORDERED: cefTRIAXone 1 gm 1 GM/100 ML BAG IVPB STA (12:34)
[2017-12-23 16:50] VITALS: BMI 24.2
--- NOTE | 2017-12-24 06:59 | CP.PCM.HP ---
<Arin Ott - Last Filed: 12/24/17 12:35> History of Present Illness - History of Present Illness History of Present Illness: H&P for Delilah Jiang PGY3 This is an 82yo female with past medical history of CAD, prosthetic aortic valve , COPD, CHF, TIA who was brought in by neighbor for AMS, weakness and fall. Patient is very confused upon examination. History obtained through neighbor and daughter. Patient's neighbor has been taking care of patient for several months. She has been buying her groceries and feeding her. Patient has not been taking any medications. She has been very confused. It is unknown if patient hit her head during the fall. Head CT was negative. Patient denies having any pain, chest pain, shortness of breath, nausea/vomiting/diarrhea, fever or chills. I spoke with daughter who reports she has not seen her mother for some time. Her mother was last seen in ED in 07/2017 for COPD/CHF exacerbation. Patient signed out AMA at that time. Her other outpatient visits to doctor was in 2012. It is unknown if patient was taking any of her medications. Past medical history: CAD, COPD, CHF (last EF 2013 EF 55-60%, mild LVH), TIA Past surgical history: Prosthetic aortic valve (open heart surgery) Home meds: Last known home meds are from 2013 which are Xanax 0.25 BID, ASA 81mg , Plavix 75mg, Metoprolol 50mg BID, Simvastatin Allergies: NKDA Social history: Heavy smoker (unknown if stopped), no EtOH or drug use. Lives alone. Daughter lives in [place], [place]. Son lives in [place]. Patient is somewhat estranged from children. Family history: Non-contributory Present on Admission - Present on Admission Any Indicators Present on Admission: No Review of Systems - Review of Systems Systems not reviewed;Unavailable: Altered Mental Status All systems: reviewed and no additional remarkable complaints except Review of Systems: 12 point ROS reviewed as per HPI and is otherwise negative. Past Patient History - Infectious Disease Hx of Infectious Diseases: None - Tetanus Immunizations Tetanus Immunization: Unknown - Past Social History Smoking Status: Current Some Days Smoker - CARDIAC Hx Cardiac Disorders: Yes Hx Hypercholesterolemia: Yes Hx Hypertension: Yes Hx Peripheral Edema: Yes (ble +1/r ankle +1) Other/Comment: CABG triple - PULMONARY Hx Respiratory Disorders: No - NEUROLOGICAL Hx Neurological Disorder: Yes (syncope) HX Cerebrovascular Accident: Yes (lle weakness, memory loss) - HEENT Hx HEENT Problems: Yes (vocal cord polyp removed 01/2012) - RENAL Hx Chronic Kidney Disease: No - ENDOCRINE/METABOLIC Hx Hypothyroidism: Yes - HEMATOLOGICAL/ONCOLOGICAL Hx Blood Disorders: No - INTEGUMENTARY Hx Dermatological Problems: Yes Other/Comment: b/l feet hard discolored heel to right foot and hard heel to left foot, red dry flakey skin, multiple skin discolorations, thick long toenails, r ankle swelling +1 ble +1 edema, multiple skin discolorations arms, face slightly flushed, red buttockd closed dry wound to r buttock 1cm x 0.5cm covered with optifoam, mid chest scar - MUSCULOSKELETAL/RHEUMATOLOGICAL Hx Musculoskeletal Disorders: Yes Hx Falls: Yes (past and today) Hx Unsteady Gait: Yes Other/Comment: lle weakness - GASTROINTESTINAL Hx Gastrointestinal Disorders: Yes Other/Comment: hx. of polyp removal - GENITOURINARY/GYNECOLOGICAL Hx Incontinence: Yes - PSYCHIATRIC Hx Psychophysiologic Disorder: Yes Hx Anxiety: Yes Hx Substance Use: No - SURGICAL HISTORY Hx Surgeries: Yes Hx Open Heart Surgery: Yes Other/Comment: vocal cord polyp 01/2012 hammertoe sx both feet - ANESTHESIA Hx Anesthesia: Yes Hx Anesthesia Reactions: No Hx Malignant Hyperthermia: No Meds Allergies/Adverse Reactions: Allergies Allergy/AdvReac Type Severity Reaction Status Date / Time No Known Allergies Allergy Verified 12/23/17 09:07 Physical Exam - Constitutional Appears: Confused - Head Exam Head Exam: ATRAUMATIC, NORMAL INSPECTION, NORMOCEPHALIC - Eye Exam Eye Exam: Normal appearance Pupil Exam: NORMAL ACCOMODATION - ENT Exam ENT Exam: Mucous Membranes Moist - Respiratory Exam Respiratory Exam: Clear to Auscultation Bilateral, NORMAL BREATHING PATTERN. absent: Rales, Rhonchi, Wheezes - Cardiovascular Exam Cardiovascular Exam: REGULAR RHYTHM, +S1, +S2. absent: Gallop, Rubs, Systolic Murmur - GI/Abdominal Exam GI & Abdominal Exam: Normal Bowel Sounds, Soft. absent: Rebound, Rigid, Tenderness - Extremities Exam Extremities exam: Positive for: normal inspection. Negative for: calf tenderness, pedal edema - Neurological Exam Neurological exam: Altered, CN II-XII Intact - Skin Skin Exam: Dry, Warm Results - Vital Signs Recent Vital Signs: Last Vital Signs Temp 97.5 F L 12/23/17 22:00 Pulse 63 12/23/17 22:00 Resp 20 12/23/17 22:00 BP 175/85 H 12/23/17 22:00 Pulse Ox 94 L 12/23/17 22:00 - Labs Result Diagrams: 12/23/17 09:15 12/23/17 09:15 Labs: Laboratory Results - last 24 hr 12/23/17 23:20 Troponin I 0.05 D Assessment & Plan - Assessment and Plan (Free Text) Assessment: This is an 82yo female with past medical history of CAD, prosthetic aortic valve , COPD, CHF, TIA who was admitted for 1. AMS - secondary to UTI with possible underlying dementia and delirium - CT head negative 2. UTI - U/A positive - urine culture pending 3. CAD 4. Prosthetic aortic valve 5. CHF (last echo 2012) - CXR negative Plan: Patient is on Rocephin. ID is consulted. Cultures are pending. Norvasc for HTN. Will continue ASA, Lipitor and Plavix for prosthetic AV valve as well as hx of CVA. Patient is on Xanax prn for agitation. She is tolerating diet. She will be evaluated by physical therapy. Patient will need intermediate card tender placement. I spoke with daughter, Mary who will be here tomorrow. Seen, discussed and reviewed with Dr. Rivera. Delilah Ott PGY3 - Date & Time Date: 12/24/17 Time: 08:00 <Abrahan Rivera - Last Filed: 12/24/17 21:41> Results - Vital Signs Recent Vital Signs: Last Vital Signs Temp 97.6 F 12/24/17 14:00 Pulse 79 12/24/17 14:00 Resp 18 12/24/17 14:00 BP 138/81 12/24/17 14:00 Pulse Ox 92 L 12/24/17 14:00 - Labs Result Diagrams: 12/23/17 09:15 12/23/17 09:15 Labs: Laboratory Results - last 24 hr 12/23/17 12/23/17 23:20 23:20 Troponin I 0.05 D Procalcitonin < 0.05 L Assessment & Plan - Assessment and Plan (Free Text) Plan: Pt seen and examined. I have reviewed the note of the medical facilities section director and agree with it. I have discussed the assessment and plan with the resident. I have reviewed the patient's labs and medications. Pt with fall. She is living alone. She may need snf placement. She has not been taking her medications. She is not safe to live alone. Spoke to TOO and disease case manager rn. Pt on ASA and Plavix for CAD.
--- NOTE | 2017-12-24 08:27 | CARD ---
APPROVED REPORT EKG Measurement Heart [id number] <Conclusion> Sinus bradycardia Voltage criteria for left ventricular hypertrophy Cannot rule out Septal infarct, old No change except slower rate
[2017-12-24] MEDS: cefTRIAXone 1 gm 1 GM/100 ML BAG IVPB SCH (09:34)
--- NOTE | 2017-12-24 23:59 | CON ---
DATE: 12/24/2017 The patient is in bed, in no acute distress. CHIEF COMPLAINT: Failure to thrive. HISTORY OF PRESENT ILLNESS: This is an 82-year-old female who was seen early this morning in 576, bed 1, status post fall and failure to thrive. The patient has history of chronic obstructive lung disease, congestive heart failure, cerebrovascular accident, coronary artery disease, hypertension. No fevers. No chills. On this morning, the patient was seen. She is still somewhat confused. She knows her name, but she does not know time and date and location. REVIEW OF SYSTEMS: Reveals a 12-point review of systems is noted. There has been no fevers and chills reported. There is no chest pain, shortness of breath or cough. PAST MEDICAL HISTORY: Significant for chronic obstructive lung disease, congestive heart failure, cerebrovascular accident, coronary artery disease, hypertension. PAST SURGICAL HISTORY: Significant for coronary artery bypass graft, vocal cord polyp removal. ALLERGIES: THE PATIENT HAS NO KNOWN ALLERGIES. MEDICATIONS AT HOME: No known meds are listed. PHYSICAL EXAMINATION: GENERAL: The patient was confused early this morning, but improving as per nurse. VITAL SIGNS: Temperature of 97, pulse of 70, blood pressure is 160/80, respiratory rate of 20. HEENT: Examination of HEENT is unremarkable. NECK: Supple. LUNGS: Have decreased breath sounds. HEART: Normal S1 and S2. ABDOMEN: Soft, nontender. LABORATORY DATA: Laboratory examination reveals a white count of 8.1, hemoglobin of 13, platelets of 140. The patient has an 81% granulocytosis. The chemistries reveals glucose of 124, AST is 44, BNP is 3030 and procalcitonin is less than 0.05. Urinalysis is 10-15 wbc's. Toxicology is noted. Microbiology reveals gram-negative rods. ASSESSMENT AND PLAN: An 82-year-old with chronic obstructive lung disease, congestive heart failure, cerebrovascular accident, coronary artery disease, hypertension with a gram-negative fernandez urinary tract infection and acute diastolic congestive heart failure on top of chronic congestive heart failure. We will check on the identification of gram-negative fernandez. I will continue the ceftriaxone. We will check on the blood cultures and follow the patient's mental status. Neurology consultation. We will follow with you. The patient's chest x-ray is negative. CAT scan of the head is negative. Kd Teran MD [facility] # [id number]
[2017-12-25] MEDS: cefTRIAXone 1 gm 1 GM/100 ML BAG IVPB SCH (09:59)
--- NOTE | 2017-12-25 11:30 | CP.PCM.PN ---
<Arin tOt - Last Filed: 12/25/17 11:27> Subjective - Date & Time of Evaluation Date of Evaluation: 12/25/17 Time of Evaluation: 07:00 - Subjective Subjective: Medicine Progress Note for Delilah Jiang PGY3 Patient seen and examined at bedside. Patient was agitated and confused overnight. She was placed with a 1:1 sitter. Upon examination, patient is very confused and hallucinating at times. Talking to people who are not there. Patient reports feeling well and denies any pain. ROS was limited. Objective - Vital Signs/Intake and Output Vital Signs (last 24 hours): Temp Pulse Resp BP Pulse Ox 98.3 F 88 18 160/87 H 97 12/25/17 06:00 12/25/17 10:00 12/25/17 06:00 12/25/17 10:00 12/25/17 06:00 Intake and Output: 12/25/17 12/25/17 06:59 18:59 Intake Total 240 0 Balance 240 0 - Medications Medications: Current Medications Acetaminophen (Tylenol 325mg Tab) 650 mg PO Q4H PRN PRN Reason: Pain, Mild (1-3) Alprazolam (Xanax) 0.5 mg PO BID [facility] PRN Reason: Protocol Last Admin: 12/25/17 10:00 Dose: 0.5 mg Amlodipine Besylate (Norvasc) 5 mg PO DAILY [facility] Last Admin: 12/25/17 10:00 Dose: 5 mg Aspirin (Aspirin Chewable) 81 mg PO DAILY [facility] Last Admin: 12/25/17 10:00 Dose: 81 mg Atorvastatin Calcium (Lipitor) 20 mg PO DIN [facility] Last Admin: 12/24/17 17:12 Dose: 20 mg Clopidogrel Bisulfate (Plavix) 75 mg PO DAILY [facility] Last Admin: 12/25/17 10:00 Dose: 75 mg Ceftriaxone Sodium (Rocephin 1 Gram Ivpb) 1 gm in 100 mls @ 100 mls/hr IVPB DAILY [facility] PRN Reason: Protocol Stop: 01/02/18 10:01 Last Admin: 12/25/17 09:59 Dose: 100 mls/hr - Constitutional Appears: Confused - Head Exam Head Exam: ATRAUMATIC, NORMAL INSPECTION, NORMOCEPHALIC - Eye Exam Eye Exam: Normal appearance Pupil Exam: NORMAL ACCOMODATION - ENT Exam ENT Exam: Mucous Membranes Moist - Respiratory Exam Respiratory Exam: Clear to Ausculation Bilateral, NORMAL BREATHING PATTERN. absent: Rhonchi, Wheezes - Cardiovascular Exam Cardiovascular Exam: REGULAR RHYTHM, +S1, +S2, Murmur. absent: Gallop, Rubs - GI/Abdominal Exam GI & Abdominal Exam: Soft, Normal Bowel Sounds. absent: Rigid, Tenderness, Mass , Rebound - Extremities Exam Extremities Exam: absent: Calf Tenderness, Pedal Edema - Neurological Exam Neurological Exam: CN II-XII Intact. absent: Oriented x3 - Skin Skin Exam: Dry, Warm Assessment and Plan - Assessment and Plan (Free Text) Assessment: This is an 82yo female with past medical history of CAD, prosthetic aortic valve , COPD, CHF, TIA who was admitted for 1. AMS - secondary to UTI with possible underlying dementia and delirium - CT head negative 2. UTI - U/A positive - Urine culture + for E.coli 3. CAD 4. Prosthetic aortic valve 5. CHF (last echo 2012) - CXR negative Plan: Patient continues to be confused. Utox negative. Will check TSH, B12 and Folate. Will consult neuro for history of CVA and medication non-compliance. Head CT was negative. As per neighbor, patient was not as confused 1 month ago. Psych also consulted for medication adjustment. Will treat UTI with Rocephin as per ID. Will consult cardiology for evaluation of AV bioprosthetic valve and medication adjustment since patient has not been on meds for many years. We will obtain Echo. Continue ASA, Plavix and Lipitor. GI and DVT prophylaxis. Spoke with daughter about plan as well as social media director. Patient lives alone and may need wet process miller head care. Case seen, reviewed and discussed with Dr. Rivera. Delilah Ott PGY3 <Abrahan Rivera - Last Filed: 12/26/17 11:58> Objective - Vital Signs/Intake and Output Vital Signs (last 24 hours): Temp Pulse Resp BP Pulse Ox 97.6 F 71 20 149/86 95 12/26/17 06:00 12/26/17 09:24 12/26/17 06:00 12/26/17 09:24 12/26/17 06:00 - Medications Medications: Current Medications Acetaminophen (Tylenol 325mg Tab) 650 mg PO Q4H PRN PRN Reason: Pain, Mild (1-3) Alprazolam (Xanax) 0.5 mg PO BID [facility] PRN Reason: Protocol Last Admin: 12/26/17 09:25 Dose: 0.5 mg Amlodipine Besylate (Norvasc) 5 mg PO DAILY [facility] Last Admin: 12/26/17 09:24 Dose: 5 mg Aspirin (Aspirin Chewable) 81 mg PO DAILY [facility] Last Admin: 12/26/17 09:24 Dose: 81 mg Atorvastatin Calcium (Lipitor) 20 mg PO DIN [facility] Last Admin: 12/25/17 17:14 Dose: 20 mg Clopidogrel Bisulfate (Plavix) 75 mg PO DAILY [facility] Last Admin: 12/26/17 09:24 Dose: 75 mg Cyanocobalamin (Vitamin B12 1000 Mcg/Ml Inj) 1,000 mcg IM DAILY [facility] Stop: 01/01/18 11:00 Folic Acid (Folic Acid) 1 mg PO DAILY [facility] Ceftriaxone Sodium (Rocephin 1 Gram Ivpb) 1 gm in 100 mls @ 100 mls/hr IVPB DAILY [facility] PRN Reason: Protocol Stop: 01/02/18 10:01 Last Admin: 12/26/17 09:24 Dose: 100 mls/hr Levothyroxine Sodium (Synthroid) 50 mcg PO 0600 [facility] Last Admin: 12/26/17 05:46 Dose: 50 mcg Quetiapine Fumarate (Seroquel) 12.5 mg PO HS PRN; Protocol PRN Reason: hallucinaitons/agitation - Labs Labs: 12/26/17 07:00 12/26/17 07:00 Assessment and Plan - Assessment and Plan (Free Text) Plan: Pt seen and examined yesterday. I have reviewed the note of the certified court/medical interpreter and agree with it. I have discussed the assessment and plan with the resident. I have reviewed the patient's labs and medications. She will need Neuro and Cardiology evaluation. An echo has been ordered. Will most likely need wet process miller head care. She is ambulating well with PT.She is on 1:1 because she tries to get up and leave. 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
--- NOTE | 2017-12-25 15:08 | CON ---
DATE: 12/25/2017 NEUROLOGY CONSULTATION CHIEF COMPLAINT: Altered mental status, delirium. HISTORY OF PRESENT ILLNESS: The history was obtained from the medical record due to the patient's poor mental status and dementia. This is an 82-year-old woman with past medical history of coronary artery disease, prosthetic aortic valve, CODP, CHF, TIA, history of bilateral basal ganglia infarcts confused upon examination. The patient has been at home feeding her. The patient has not been taking any medications and has been very confused and it is unknown if she hit her head or not from the fall. CT head showed no acute intracranial abnormality, just chronic bilateral infarcts in the basal ganglia. She was recently seen in 07/2017, for COPD/ . The patient is noncompliant with medications, currently agitated and delirious. She has urinary tract infection with leukocyte esterase elevated and positive nitrites, on antibiotics. We recommended for her to be on Seroquel 12.5 mg for agitation. Psychiatry consult has been obtained. PAST MEDICAL HISTORY: As above. SOCIAL HISTORY: She is a heavy smoker, unknown if she stopped. No EtOH abuse. Lives alone. Daughter is in [place], [place]. Son lives in [place]. The patient restraints from children. ALLERGIES: NO KNOWN DRUG ALLERGIES. MEDICATIONS: Reviewed by nurse per reconciliation sheet. FAMILY HISTORY: Noncontributory. REVIEW OF SYSTEMS: A 14-point review of systems negative except in the HPI. LABORATORY DATA: Sodium is 141, potassium 4.2, chloride 102, carbon dioxide 29. BUN of 19, creatinine 0.9. Random glucose of 124. UA is positive for leukocyte esterase as well as positive nitrites. She has mild elevated BNP as well at 3000. PHYSICAL EXAMINATION: VITAL SIGNS: Temperature of 98.3, pulse rate is 68, blood pressure of 134/59, respiratory rate 18, oxygen saturation 97% by room air. GENERAL: The patient is sitting in bed, on one-to-one. She is alert and oriented to person and place, not much to month and year. Recall after 5 minutes is 0/3. Poor attention span and slow thought process. HEENT: Atraumatic and normocephalic. PERRLA. Extraocular muscles intact. NECK: Supple. No JVD. No adenopathy noted. LUNGS: Decreased breath sounds bilaterally. HEART: S1 and S2, normal rate and rhythm. No murmur, rubs, or gallops. ABDOMEN: Soft, nontender, and nondistended. Bowel sounds present. EXTREMITIES: No clubbing. No cyanosis. Peripheral pulses 2+ felt bilaterally. NEUROLOGIC: The patient is alert, oriented to self, not much to month or year. Recall after 5 minutes is 0/3. Poor attention span and slow thought process. Very confused and agitated. Speech is fluent without any errors. No aphasia noted. Cranial nerves II through XII intact. Motor exam: Moves all extremities equally. Slight increased tone throughout. Sensory exam: Light touch, pinprick, proprioception, vibration intact. DTRs are 2+ throughout, 1 at both knee and ankles. Coordination and gait deferred for now. ASSESSMENT AND PLAN: This is an 82-year-old woman with history of coronary artery disease, prosthetic aortic valve, chronic obstructive pulmonary disease, congestive heart failure, history of transient ischemic attack, history of bilateral basal ganglia infarcts in the past, history of congestive heart failure exacerbation in the past, presented for confusion, altered mental status with delirium. CT of head showed no acute intracranial abnormality. Her urinalysis is positive for underlying urinary tract infection given that she has elevated leukocyte esterase and positive nitrites, who was consulted for mental status. On mental status exam, she has evidence of vascular dementia with superimposed underlying cognitive impairment as well as underlying delirium from possible underlying urinary tract infection. Her family is estranged as well as social issues here. She is noncompliant with medications, does not have a proper routine on taking medications or followup. At this time, we recommend; 1. Psychiatric evaluation in regards to competency as well as mental status. 2. Recommend Seroquel 12.5 mg p.o. b.i.d. for agitation, delirium. 3. Thiamine 100 mg p.o. daily for neurocognition. 4. Aspirin 81, Plavix 75 mg, Lipitor 20 mg for stroke prevention given her cardiac history. 5. She has elevated TSH and levothyroxine may need to be adjusted by her primary. At this time, continue to treat underlying urinary tract infections, advise delirium precautions and avoid sedated meds. She needs fdc care. Thank you for this consult. Constantino Howard MD
[2017-12-25 17:59] LABS: FREE T4 0.23 ng/dL (0.78-2.19); T4 1.6 ug/dL (5.5-11.0)
[2017-12-25 18:01] LABS: FOLATE 10.7 ng/mL
--- NOTE | 2017-12-25 23:29 | CON ---
DATE: HISTORY OF PRESENT ILLNESS: Shortly, the patient is 82-year-old female with multiple medical problems including COPD, CHF. The patient was brought in status post fall as well as failure to thrive. The patient lives independently, questionable history of dementia. Psych consult was called for evaluation of confusion and hallucinations. The patient was seen and examined, discussed with the medical records secretary, . As per medical records secretary, the patient is confused, had hallucinations. Does not make much sense. The patient was started on one-to-one observation by medical team. The patient has no family. Has 2 kids, but they are kind of estranged from the patient. The patient does not have any power of employment attorney and was making decisions for herself. The patient was seen and examined. The patient presented to be confused. The patient does not know where she is. The patient reported that she feels that she is in high school. The patient feels that right now is 08/1989 and had no clue about the date and the circumstances of her admission to the hospital. The patient obviously confabulates. The patient was not able to concentrate during the interview. She was switching her subject and was not able to complete the sentences. She would give this internal communications writer impression that the patient also has superimposed delirium on top of dementia. VITAL SIGNS: Seems to be stable. Temperature 98.3, pulse is 88, blood pressure 150/87, respiration 18, oxygen saturation is 97. MEDICATIONS: Reviewed. The patient was on Xanax 0.5 mg twice a day scheduled, Norvasc, aspirin, Lipitor, Rocephin, Plavix. This internal communications writer will implement Seroquel 12.5 mg at the nighttime only if needed, if the patient is agitated and restless as well as hallucinating. This internal communications writer attempted to discuss risks, benefits and alternatives of the medication to the patient, but the patient was not able to understand. Hematology reviewed. Chemistry reviewed. Urinalysis showed leukocyte esterase moderate. Toxicology negative. Microbiology: E. coli in urine. Reports reviewed. CT scan of the head did not show any intracranial abnormalities. Electrocardiogram was also done on , which showed sinus bradycardia and possible septal infarct. Chest x-ray was also done on , with impression no active disease. MENTAL STATUS EXAMINATION: The patient appears to be alert, but very confused. The patient thinks that she is in high school and completely off with the date. The patient had difficulty to stay focused and concentrate during the interview. She was having difficulty to complete her sentences. Mood described as fine. Affect flat, somewhat irritable and annoyed. Thought process seems to be concrete and disorganized. Thought content, the patient had disorganized thought process. Denied any hallucinations, but as per nursing staff, the patient had hallucinations as well as it was observed by medical records secretary. Insight and judgment seems to be impaired. Impulses are unpredictable. IMPRESSION: Delirium due to urinary tract infection on dementia. PLAN: Continue current management. Continue current medication. The patient is on antibiotics. Continue Xanax only if needed. Seroquel was implemented at the night-time to clear delirium. This internal communications writer will follow up and advise accordingly. Thank you very much for letting me participate in the care of your patient. Agronomy Supervisor involved. The patient's family need to be involved as well. If the patient has capacity to appoint power of employment attorney after mental status improved, it will be beneficial for the future. Thank you very much for letting me participate in the care of your patient. If you have any questions, give me a call back. Ange Garvin MD
--- NOTE | 2017-12-26 00:23 | CON ---
DATE: 12/25/2017 SERVICE: CARDIOLOGY REASON FOR CONSULTATION: Cardiac evaluation, history of COPD, history of CHF, history of aortic valve replacement, admitted with altered mental status, failure to thrive. BRIEF CLINICAL HISTORY: An 82-year-old female with past medical history significant for COPD, CHF, failure to thrive, altered mental status, possible dementia, history of open heart surgery, history of AVR, bioprosthetic aortic valve replacement, who was brought here for altered mental status. Patient's family last time saw in July. Patient has recently been taken care of by neighbor who used to feed her and do the grocery for her. Patient is found to be in altered mental status who is brought here for evaluation and treatment, possible UTI as well as failure to thrive. Patient is currently in 576, bed 1. Denies any chest pain, shortness of breath, any palpitation. Cardiology consult was called for evaluation of valve and CHF, history of COPD, last admission here in 07/2017. Patient denies any chest pain, shortness of breath, any palpitation. PAST MEDICAL HISTORY: Significant for CAD, COPD, CHF, TIA. PAST SURGICAL HISTORY: History of aortic valve replacement, status post open heart surgery. PATIENT PREVIOUS CARDIAC WORKUP: Old records show that the patient had open heart surgery in 2008. Patient had a stress test on 03/22/2013 that showed normal myocardial perfusion study, ejection fraction 75%. Patient's last echo on 03/19/2013 in [facility] that shows ejection fraction 55% to 60%, mild concentric LVH, borderline hypokinesis, mid anteroseptal wall with bioprosthetic aortic valve position. The prosthetic valve appears normal, [id number] mitral regurgitation, [id number] tricuspid regurgitation, as mentioned ejection fraction 55% to 60%, normal RV size and function noted. SOCIAL HISTORY: Patient is an ex-smoker. Denies any history of substance abuse. Patient has a strange relation with daughter and family as per in the medical record. CURRENT MEDICATIONS: At home, unknown medication, possibly patient was not taking any medication at home because of underlying dementia. REVIEW OF SYSTEMS: As per HPI. PHYSICAL EXAMINATION: VITAL SIGNS: As follows; height of the patient 5 feet 6 inches, weight of the patient 150 pounds, body mass index is 24.2 kg/m2, heart rate 88, blood pressure of 160/87. HEENT: PERRLA. Extraocular muscles are intact.. NECK: Supple. No carotid bruit or thyromegaly.. CHEST: Clear to auscultation. HEART: S1 and S2 regular. ABDOMEN: Soft. EXTREMITIES: Clubbing and cyanosis negative. EKG shows sinus krystin, rate of 54, RR progression. LABORATORY DATA: Blood workup as follows; WBC 8.1, hemoglobin 13.9, hematocrit 41.1, platelet count 140. Chemistry shows sodium 141, potassium 4.2, chloride 102, carbon dioxide 29, anion gap of 14, BUN 19, creatinine 0.9. Troponin remains 0.05 negative. Procalcitonin level 0.05. BNP is 3030. TSH 31.3. IMPRESSION: This is an 82-year-old female with past medical history significant for coronary artery disease, coronary artery bypass graft in 2008, status post open heart surgery, status post aortic valve replacement. Recent stress test in 2012 was essentially negative, admitted with advanced dementia, altered mental status, urinary tract infection, sepsis, possible. Suggest TSH level, hemoglobin A1c, lipid profile. Echo to assess left ventricular function, elevated BNP, clinically patient is not in failure. Chest x-ray also look like more chronic obstructive pulmonary disease type, but cannot definitely say CHF, but some encephalization noted. RECOMMENDATION: As mentioned, we will get the TSH level, lipid profile, TSH, echo. Further recommendation depending upon hospital course. Agreed to cover broad spectrum antibiotics, Lasix as needed. We will follow with you. Thank you, for providing us the opportunity in taking care of the patient, Nereida Bustamante. Lakeisha Ellison MD
--- NOTE | 2017-12-26 02:09 | PN ---
DATE: 12/25/2017 SUBJECTIVE: The patient is in bed, in no acute distress, nontoxic, was seen early this morning in room 576, bed 1; however, the patient is confused. PHYSICAL EXAMINATION: VITAL SIGNS: Temperature is 97, blood pressure 120/70, respiratory rate of 20, heart rate is 77. HEENT: Unremarkable. NECK: Supple. LUNGS: Have decreased breath sounds. HEART: Normal S1 and S2. ABDOMEN: Soft, nontender. LABORATORY DATA: Reveals the patient's white count is 8.1, hemoglobin of 13, platelets of 140. Chemistries are noted. Troponin is 0.05. Procalcitonin is less than 0.05. Microbiology reveals E. coli in the urine which is relatively sensitive E. coli. Review of orders reveals the patient to be on ceftriaxone. ASSESSMENT AND PLAN: This is an 82-year-old female who is currently on ceftriaxone. We will follow with you. Kd Teran MD
[2017-12-26] MEDS: Levothyroxine 50 MCG TAB PO SCH (05:46)
[2017-12-26 08:00] LABS: BASO # 0.05 K/mm3 (0.0-2.0); BASO % 0.6 % (0.0-3.0); EOS # 0.3 (0.0-0.7); EOS % 3.7 % (1.5-5.0); GRAN # 5.52 (1.4-6.5); GRAN % 70.6 % (50.0-68.0); HEMOGLOBIN 15.6 g/dL (12.0-16.0); LYMPH # 1.3 (1.2-3.4); LYMPH % 16.4 % (22.0-35.0); MEAN CELL VOLUME 90.5 fl (80.0-105.0); MEAN CORPUSCULAR HEMOGLOBIN 30.2 pg (25.0-35.0); MEAN CORPUSCULAR HGB CONC 33.4 g/dl (31.0-37.0); MEAN PLATELET VOLUME 9.9 fl (7.0-11.0); MONO # 0.7 (0.1-0.6); MONO % 8.7 % (1.0-6.0); RBC 5.16 10^6/uL (3.5-6.1); RED CELL DISTRIBUTION WIDTH 16.2 % (11.5-14.5); WHITE BLOOD COUNT 7.8 10^3/ul (4.5-11.0)
[2017-12-26 08:22] LABS: LDL CHOLESTEROL 121 mg/dL (0-129)
[2017-12-26 08:24] LABS: ALB/GLOB RATIO 1.4 (1.1-1.8); ALBUMIN 3.9 g/dL (3.0-4.8); ALT/SGPT 32 U/L (7-56); AST/SGOT 24 U/L (14-36); BLOOD UREA NITROGEN 19 mg/dL (7-21); CALCIUM 8.8 mg/dL (8.4-10.5); GFR AFRICAN-AMERICAN > 60; GFR NON-AFRICAN AMERICAN > 60; HDL CHOLESTEROL 74 mg/dL (29-60)
[2017-12-26] MEDS: cefTRIAXone 1 gm 1 GM/100 ML BAG IVPB SCH (09:24)
--- NOTE | 2017-12-26 13:40 | PN ---
DATE: 12/26/2017 SUBJECTIVE: The patient is in bed in no acute distress, nontoxic. PHYSICAL EXAMINATION: VITAL SIGNS: Temperature is 97, blood pressure is 140/80, respiratory rate of 20. HEENT: Unremarkable. NECK: Supple. LUNGS: Have decreased breath sounds. HEART: Normal S1, S2. ABDOMEN: Soft, nontender. LABORATORY EXAMINATION: Reveals a white count of 7.8, hemoglobin of 15, platelets of 139. Chemistries are noted and procalcitonin is less than 0.05. Urinalysis is noted. Microbiology reveals E. coli in the urine. The blood cultures are negative. E. coli is pansensitive. Review of orders reveals the patient to be on ceftriaxone. ASSESSMENT AND PLAN: An 82-year-old female who was seen in [facility], bed 1 with chronic obstructive lung disease, congestive heart failure, cerebrovascular accident, coronary artery disease, hypertension, history of coronary artery bypass graft, vocal cord polyp removal who was admitted with acute diastolic congestive heart failure on top of chronic congestive heart failure with gram-negative fernandez, urinary tract infection on ceftriaxone, may switch to p.o., Vantin upon discharge. The patient's mental status has somewhat improved; however, overall prognosis is quite poor. Kd Teran MD
--- NOTE | 2017-12-26 19:25 | CON ---
DATE: 12/26/2017 HISTORY OF PRESENT ILLNESS: Patient is an 82 year old white female who is being followed by Psychiatry on the medical floor due to delirium and dementia related symptoms including confusion and hallucination. I reviewed Dr. Garvin's evaluation, recent staff notes. I met with the patient at bedside. Patient continued to be disoriented. She also appeared to be guarded and a little paranoid and mildly irritable during my visit this morning. She seems quite suspicious of the reasons for my visit and repeatedly asked me "who sent you". The patient is aware she is at a hospital and she believes it is 09/1979. The patient and she feels a little stupid and when asked about to elaborate on that, she indicates "I always feel stupid." She is oddly related. Some of her responses are not entirely relevant and she denies having any perceptual disturbance so I just provided questions of credibility as she has been noted to have visual hallucinations, bouts of confusion on the unit. She does not appear to be responding to internal stimuli at this time. She denies being in any discomfort or pain and denies any side effects from the medication and she reports that her anxiety is under control, although she does appear to be mildly anxious at my visit. Staff nurse indicated that she is easily confused and needs to be redirected, she gets out of bed and she remains wholly disoriented. Her insight and judgment are poor. Her vital signs and labs are reviewed. IMPRESSION: Delirium due to urinary tract infection on dementia. RELEVANT PSYCHIATRIC MEDICATIONS: Include Xanax 0.5 mg p.o. b.i.d. as well as Seroquel 12.5 mg p.o. at bedtime p.r.n. RECOMMENDATIONS: We will continue with current medications. No acute indications to change medication regimen at this time. Psychiatry will continue to follow up with the patient. Next followup should be in two days on 12/28/2017; if you require earlier followup, please request and we will be happy to check on the patient if there are any changes in her presentation. Nora Berry MD [facility] # [id number]
--- NOTE | 2017-12-27 01:56 | PN ---
DATE: 12/26/2017 HISTORY OF PRESENT ILLNESS: Ms. Bustamante is an 82-year-old female brought by the neighbor to the ED with altered mental status, weakness, and history of recurrent falls. She was evaluated by Psych, Neurology. She was also found to have UTI, currently on IV antibiotics as per ID. Workup showed B12 deficiency. She is not oriented to place, person. She claims she is in high school. She also has a history of coronary artery disease, no issues right now; COPD, no recent illness on admission; history of CHF; history of TIA. PAST MEDICAL HISTORY: CAD, COPD, CHF, TIA. PAST SURGICAL HISTORY: Prosthetic aortic valve. HOME MEDICATIONS: Xanax, Plavix, aspirin, metoprolol, simvastatin. ALLERGIES: NO KNOWN DRUG ALLERGIES. PERSONAL HISTORY: Heavy smoker. No history of alcohol abuse. FAMILY HISTORY: Noncontributory. REVIEW OF SYSTEMS: Could not be obtained. PHYSICAL EXAMINATION: GENERAL: Comfortable in bed, in no acute distress, arousable, drowsy, not oriented, not alert. VITAL SIGNS: Stable. Temperature 97.5, heart rate 60 per minute, respiratory rate 20 per minute, blood pressure 160/80 and pulse ox is 94% on room air. HEENT: Pallor positive. NECK: No lymphadenopathy. CHEST: Air entry present and equal bilaterally. No added sounds. CARDIOVASCULAR: S1 and S2 normal. No murmur. No gallop. ABDOMEN: Soft and nontender. No hepatosplenomegaly. EXTREMITIES: No edema. CENTRAL NERVOUS SYSTEM: No focal sensory or motor deficit. Confused, disoriented. Not oriented to time, place, person. SKIN: No petechiae. No rash. LABORATORY DATA: White count 8.1, hemoglobin 13.9, hematocrit 41.1, platelet count 140. B12 less than 159. Creatinine 0.8. Urine culture showed E. coli. ASSESSMENT: 1. B12 deficiency. 2. Altered mental status. 3. Escherichia coli urinary tract infection. 4. Dementia. PLAN: She is currently on IV antibiotics, ceftriaxone; ID consultation appreciated. B12 deficiency, B12 less than 159. We will start B12 at 1 mg IM daily for 7 days, folic acid 1 mg p.o. daily. Psych evaluation appreciated. Continue aspirin 81 mg daily, Lipitor 20 mg daily, Plavix 75 mg daily, Synthroid 50 mcg daily, Seroquel p.r.n., Xanax b.i.d. Discussed with the friend at bedside. Discussed with the staff nurse. Vickie Cherry MD
[2017-12-27] MEDS: Levothyroxine 50 MCG TAB PO SCH (06:12)
[2017-12-27] MEDS: cefTRIAXone 1 gm 1 GM/100 ML BAG IVPB SCH (09:25)
--- NOTE | 2017-12-27 15:07 | PN ---
DATE: 12/27/2017 SUBJECTIVE: The patient seen in room 576, bed 1 earlier today. No changes. She has remained confused as per nursing staff. PHYSICAL EXAMINATION: VITAL SIGNS: Temperature is 98, blood pressure is 130/90, respiratory rate of 18, heart rate of 68. HEENT: Unremarkable. NECK: Supple. LUNGS: Have decreased breath sounds. HEART: Normal S1, S2. ABDOMEN: Soft, nontender. LABORATORY DATA: Reveals a white count of 7.8, hemoglobin of 15, platelets of 139. Magnesium is 2.3 and creatinine 0.8. Urinalysis reveals 10-15 wbc's, many bacteria. There is positive leukocyte esterase, positive nitrites, positive proteinuria and toxicology is reviewed. Microbiology reveals the blood cultures are no growth. Urine culture is E. coli which is resistant to ampicillin, sensitive to Bactrim, sensitive to ertapenem, it is negative ESBL, it is sensitive to cefazolin, sensitive to Cipro, sensitive to cefepime, piperacillin and meropenem. Review of orders reveals the patient to be on ceftriaxone. Dr. Cherry's note is reviewed and Dr. Berry's consultation is reviewed. ASSESSMENT AND PLAN: An 82-year-old female with chronic obstructive lung disease, congestive heart failure, cerebrovascular accident, coronary artery disease, hypertension, history of coronary artery bypass graft, vocal cord polyp removal, admitted with acute diastolic congestive heart failure on top of chronic congestive heart failure and Escherichia coli urinary tract infection with delirium on top of dementia. Currently on ceftriaxone and the mental status is somewhat improved, although I am not clear of where her baseline is. We will continue the ceftriaxone upon discharge, may switch to p.o. Vantin 200 mg b.i.d. and today is day #4 of ceftriaxone, would complete 7 days, may be able to switch to p.o. Vantin at 200 mg p.o. b.i.d. upon discharge. Kd Teran MD
--- NOTE | 2017-12-27 17:35 | PN ---
DATE: 12/27/2017 SUBJECTIVE: She is very agitated in the bed. She is trying to get out of the bed. She is on constant one-to-one. She is awake today, but not oriented. She was drowsy yesterday. No nausea. No vomiting. No diarrhea. No chest pain. Evaluated by Psych, Dr. Berry, yesterday. REVIEW OF SYSTEMS: As per HPI. Rest of 12-point review of systems reviewed negative. PHYSICAL EXAMINATION: GENERAL: Agitated. VITAL SIGNS: Temperature 97.8, heart rate 88 per minute, blood pressure 170/85, respiratory rate 20 per minute, oxygen saturation 91% on room air. HEENT: Pallor positive. NECK: No lymphadenopathy. CHEST: Air entry present and equal bilaterally. No added sound. CARDIOVASCULAR: S1 and S2 normal. No murmur. No gallop. ABDOMEN: Soft, nontender. No hepatosplenomegaly. EXTREMITIES: No edema. CENTRAL NERVOUS SYSTEM: Not oriented to time, place, person. Agitated, trying to get out of bed. MEDICATIONS: Tylenol 650 every 4 hours p.r.n., Xanax 0.5 mg p.o. b.i.d., Norvasc 5 mg daily, aspirin 81 mg daily, Lipitor 20 mg daily, ceftriaxone 1 g daily, Plavix 75 mg daily, B12 1 mg IM daily, folic acid 1 mg daily, Haldol 0.5 mg every 4 hours p.r.n., Synthroid 50 mcg daily, Seroquel at bedtime p.r.n. ASSESSMENT: 1. Altered mental status. 2. B12 deficiency. 3. Dementia. 4. Urinary tract infection. PLAN: We will continue antibiotic, ceftriaxone. ID consultation, Dr. Teran, appreciated. Urine culture growing E. coli. She has severe B12 deficiency, started on IM B12 injection yesterday. We will continue that for 7 days, folic acid 1 mg p.o. daily. Psych input appreciated, started on Haldol IV and Seroquel yesterday as per Psych. Continue one-to-one. Vickie Cherry MD [facility] # [id number]
[2017-12-28] MEDS: Levothyroxine 50 MCG TAB PO SCH (06:42)
--- NOTE | 2017-12-28 07:01 | CP.PCM.PN ---
Subjective - Date & Time of Evaluation Date of Evaluation: 12/28/17 Time of Evaluation: 06:30 - Subjective Subjective: Asleep but easily awaken, confuse on 1:1 sitter, no distress Reason for consultation and follow up: Cardiac evaluation, history of COPD, history of CHF, history of aortic valve replacement, admitted for altered mental status and failure to thrive Seen and examined by me and Dr. Ellison Objective - Vital Signs/Intake and Output Vital Signs (last 24 hours): Temp Pulse Resp BP Pulse Ox 98.2 F 84 20 130/67 92 L 12/27/17 21:52 12/27/17 21:52 12/27/17 21:52 12/27/17 21:52 12/27/17 21:52 - Medications Medications: Current Medications Acetaminophen (Tylenol 325mg Tab) 650 mg PO Q4H PRN PRN Reason: Pain, Mild (1-3) Alprazolam (Xanax) 0.5 mg PO BID [facility] PRN Reason: Protocol Last Admin: 12/27/17 16:59 Dose: 0.5 mg Amlodipine Besylate (Norvasc) 5 mg PO DAILY [facility] Last Admin: 12/27/17 09:26 Dose: 5 mg Aspirin (Aspirin Chewable) 81 mg PO DAILY [facility] Last Admin: 12/27/17 09:26 Dose: 81 mg Atorvastatin Calcium (Lipitor) 20 mg PO DIN [facility] Last Admin: 12/27/17 16:59 Dose: 20 mg Clopidogrel Bisulfate (Plavix) 75 mg PO DAILY [facility] Last Admin: 12/27/17 09:26 Dose: 75 mg Cyanocobalamin (Vitamin B12 1000 Mcg/Ml Inj) 1,000 mcg IM DAILY [facility] Stop: 01/01/18 11:00 Last Admin: 12/27/17 09:26 Dose: 1,000 mcg Folic Acid (Folic Acid) 1 mg PO DAILY [facility] Last Admin: 12/27/17 09:26 Dose: 1 mg Haloperidol Lactate (Haldol) 0.5 mg IVP Q4 PRN; Protocol PRN Reason: Anxiety Last Admin: 12/27/17 14:26 Dose: 0.5 mg Ceftriaxone Sodium (Rocephin 1 Gram Ivpb) 1 gm in 100 mls @ 100 mls/hr IVPB DAILY [facility] PRN Reason: Protocol Stop: 01/02/18 10:01 Last Admin: 12/27/17 09:25 Dose: 100 mls/hr Levothyroxine Sodium (Synthroid) 50 mcg PO 0600 [facility] Last Admin: 12/28/17 06:42 Dose: 50 mcg Quetiapine Fumarate (Seroquel) 12.5 mg PO HS PRN; Protocol PRN Reason: hallucinaitons/agitation Last Admin: 12/27/17 21:22 Dose: 12.5 mg - Labs Labs: 12/26/17 07:00 12/26/17 07:00 - Constitutional Appears: No Acute Distress - Head Exam Head Exam: NORMOCEPHALIC - Eye Exam Eye Exam: Normal appearance - ENT Exam ENT Exam: Mucous Membranes Moist - Respiratory Exam Respiratory Exam: Clear to Ausculation Bilateral, NORMAL BREATHING PATTERN - Cardiovascular Exam Cardiovascular Exam: +S1, +S2 - GI/Abdominal Exam GI & Abdominal Exam: Soft, Normal Bowel Sounds - Extremities Exam Extremities Exam: Normal Capillary Refill - Neurological Exam Neurological Exam: Alert, Awake Additional comments: confuse - Skin Skin Exam: Dry, Intact, Warm Assessment and Plan - Assessment and Plan (Free Text) Assessment: An 82 year old female who was brought to the ER by neighbor due to altered mental status,weakness and fall. Patient was very confused. History of coronary artery disease,CABG 2008, prosthetic aortic valve replacement, history of COPD , CHF, TIA,. CT scan of head upon admission negative for bleeding. Patient was last seen by family last July. She is being taken cared of by neighbor helping out with groceries. Admitted for altered mental status and failure to thrive. Plan: ECHO was done, will follow results Cardiac status stable Continue Norvasc to control hypertension, will increase dose as needed. Still confuse, with sitter Nutritional support B12 deficiency, with supplements UTI, on antibiotics, ID on consult Continue current medications Continue current treatment Will follow up Plan and treatment discussed with Dr. Ellison
[2017-12-28] MEDS: cefTRIAXone 1 gm 1 GM/100 ML BAG IVPB SCH ×2 (10:09→12:33)
--- NOTE | 2017-12-28 10:22 | CP.PCM.PN ---
<Arin Ott - Last Filed: 12/28/17 10:15> Subjective - Date & Time of Evaluation Date of Evaluation: 12/28/17 Time of Evaluation: 07:00 - Subjective Subjective: Medicine Progress Note for Delilah Jinag PGY3 Patient seen and examined at bedside. Patient agitated overnight as per nursing staff. Patient is confused and resting in bed. She denies having any pain, chest pain, shortness of breath. ROS was limited. Objective - Vital Signs/Intake and Output Vital Signs (last 24 hours): Temp Pulse Resp BP Pulse Ox 98.2 F 48 L 20 214/10 H 92 L 12/27/17 21:52 12/28/17 10:11 12/27/17 21:52 12/28/17 10:11 12/27/17 21:52 - Medications Medications: Current Medications Acetaminophen (Tylenol 325mg Tab) 650 mg PO Q4H PRN PRN Reason: Pain, Mild (1-3) Alprazolam (Xanax) 0.5 mg PO BID [facility] PRN Reason: Protocol Last Admin: 12/28/17 10:10 Dose: 0.5 mg Amlodipine Besylate (Norvasc) 5 mg PO DAILY [facility] Last Admin: 12/28/17 10:11 Dose: 5 mg Aspirin (Aspirin Chewable) 81 mg PO DAILY [facility] Last Admin: 12/28/17 10:08 Dose: 81 mg Atorvastatin Calcium (Lipitor) 20 mg PO DIN [facility] Last Admin: 12/27/17 16:59 Dose: 20 mg Clopidogrel Bisulfate (Plavix) 75 mg PO DAILY [facility] Last Admin: 12/28/17 10:08 Dose: 75 mg Cyanocobalamin (Vitamin B12 1000 Mcg/Ml Inj) 1,000 mcg IM DAILY [facility] Stop: 01/01/18 11:00 Last Admin: 12/28/17 10:10 Dose: 1,000 mcg Folic Acid (Folic Acid) 1 mg PO DAILY [facility] Last Admin: 12/28/17 10:08 Dose: 1 mg Haloperidol Lactate (Haldol) 0.5 mg IVP Q4 PRN; Protocol PRN Reason: Anxiety Last Admin: 12/27/17 14:26 Dose: 0.5 mg Ceftriaxone Sodium (Rocephin 1 Gram Ivpb) 1 gm in 100 mls @ 100 mls/hr IVPB DAILY [facility] PRN Reason: Protocol Stop: 01/02/18 10:01 Last Admin: 12/28/17 10:09 Dose: 100 mls/hr Levothyroxine Sodium (Synthroid) 50 mcg PO 0600 [facility] Last Admin: 12/28/17 06:42 Dose: 50 mcg Quetiapine Fumarate (Seroquel) 12.5 mg PO HS PRN; Protocol PRN Reason: hallucinaitons/agitation Last Admin: 12/28/17 10:07 Dose: 12.5 mg - Labs Labs: 12/26/17 07:00 12/26/17 07:00 - Constitutional Appears: No Acute Distress - Head Exam Head Exam: ATRAUMATIC, NORMAL INSPECTION, NORMOCEPHALIC - Eye Exam Eye Exam: Normal appearance Pupil Exam: NORMAL ACCOMODATION - ENT Exam ENT Exam: Mucous Membranes Moist - Respiratory Exam Respiratory Exam: Clear to Ausculation Bilateral, NORMAL BREATHING PATTERN. absent: Rales, Rhonchi, Wheezes - Cardiovascular Exam Cardiovascular Exam: REGULAR RHYTHM, +S1, +S2. absent: Gallop, Rubs, Murmur - GI/Abdominal Exam GI & Abdominal Exam: Soft, Normal Bowel Sounds. absent: Tenderness, Mass, Rebound - Extremities Exam Extremities Exam: Normal Inspection. absent: Pedal Edema - Neurological Exam Neurological Exam: Alert, Awake, CN II-XII Intact. absent: Oriented x3 - Skin Skin Exam: Dry, Warm Assessment and Plan - Assessment and Plan (Free Text) Assessment: This is an 82yo female with past medical history of CAD, prosthetic aortic valve , COPD, CHF, TIA who was admitted for 1. AMS - secondary to UTI with possible underlying dementia and delirium as well as hypothyroidism and B12 deficiency - CT head negative 2. UTI - U/A positive - Urine culture + for E.coli 3. Vitamin B12 deficienct 4. Hypothyroidism 5. CAD 6. Prosthetic aortic valve 7. CHF (last echo 2012) - CXR negative Plan: Patient continues to be confused. Will continue Vitamin B12, folic acid, and synthroid. Neuro consulted and recommendations were appreciated. Patient had echo done. Cardiology is following for AV valve replacement. Continue Norvasc, ASA, Lipitor and Plavix. Patient is on IV Rocephin for UTI. ID is on consult. Psych is following patient for delirium with dementia. She is on Seroquel HS prn , Haldol prn, and Xanax scheduled. Patient will need half-way care and cannot make decisions for herself. She does not have a power of estate planning attorney. Case seen, reviewed and discussed with Dr. Rivera. Delilah Ott PGY3 <Abrahan Rivera - Last Filed: 12/29/17 18:31> Objective - Vital Signs/Intake and Output Vital Signs (last 24 hours): Temp Pulse Resp BP Pulse Ox 98.2 F 79 18 102/53 L 95 12/29/17 06:00 12/29/17 10:04 12/29/17 06:00 12/29/17 10:04 12/29/17 06:00 - Medications Medications: Current Medications Acetaminophen (Tylenol 325mg Tab) 650 mg PO Q4H PRN PRN Reason: Pain, Mild (1-3) Alprazolam (Xanax) 0.25 mg PO TID [facility] PRN Reason: Protocol Last Admin: 12/29/17 17:46 Dose: 0.25 mg Amlodipine Besylate (Norvasc) 5 mg PO DAILY [facility] Last Admin: 12/29/17 10:04 Dose: 5 mg Aspirin (Aspirin Chewable) 81 mg PO DAILY [facility] Last Admin: 12/29/17 10:04 Dose: 81 mg Atorvastatin Calcium (Lipitor) 20 mg PO DIN [facility] Last Admin: 12/29/17 17:46 Dose: 20 mg Cefpodoxime Proxetil (Vantin) 200 mg PO Q12 [facility] PRN Reason: Protocol Last Admin: 12/29/17 10:04 Dose: 200 mg Cyanocobalamin (Vitamin B12 1000 Mcg/Ml Inj) 1,000 mcg IM DAILY [facility] Stop: 01/01/18 11:00 Last Admin: 12/29/17 10:05 Dose: 1,000 mcg Famotidine (Pepcid) [address] [facility] Folic Acid (Folic Acid) 1 mg PO DAILY [facility] Last Admin: 12/29/17 10:05 Dose: 1 mg Levothyroxine Sodium (Synthroid) 50 mcg PO 0600 [facility] Last Admin: 12/29/17 06:23 Dose: 50 mcg Risperidone (Risperdal Oral Soln) 0.5 mg PO BID [facility] PRN Reason: Protocol Last Admin: 12/29/17 17:47 Dose: 0.5 mg Risperidone (Risperdal Oral Soln) 0.5 mg PO HS [facility] PRN Reason: Protocol Ziprasidone (Geodon Inj) 10 mg IM BID PRN; Protocol PRN Reason: severe agitaiton/psychosis Last Admin: 12/28/17 23:31 Dose: 10 mg - Labs Labs: 12/26/17 07:00 12/29/17 06:30 PT 12.4 SECONDS (9.4-12.5) 12/29/17 08:00 INR 1.08 (0.93-1.08) 12/29/17 08:00 APTT 32.1 Seconds (25.1-36.5) 12/29/17 08:00 Assessment and Plan - Assessment and Plan (Free Text) Plan: Pt seen and examined yesterday. This is a late entry. I have reviewed the note of the director of medical services and agree with it. I have discussed the assessment and plan with the resident. I have reviewed the patient's labs and medications. Pt waiting for placement. She is on Synthroid. Continue with Haldol prn. and Xanx prn. Pt is on 1:1 to prevent from walking off the floor and harm to her self. A robby watson was called yesterday and I spoke to the resident. Pt with B12 def and is on IM B12.
--- NOTE | 2017-12-28 12:55 | CP.PCM.PN ---
Subjective - Date & Time of Evaluation Date of Evaluation: 12/28/17 Time of Evaluation: 12:47 - Subjective Subjective: DAGOBERTO LAI NOTE (House Doctor) Dagoberto Lai was called at 1225 as patient was combative with nursing and not cooperative with efforts to take her back to her room. Patient was noted to oriented to person and place but not to time or event. Patient returned to room with assistance of two RN's. Multiple attempts were made by House Doctor and RN to administer PO anti-anxiety medications but patient refused all PO medication. Although she returned to her room, she continued to display signs of agitation and IM Geodon was ordered. Vital signs reviewed and stable. Of note , patient has refused all PO medications and discontinued her IV access earlier in the day which prevented her from receiving antibiotics. We will continue to monitor patients clinical status after IM Geodon administration and will notify primary team. Objective - Vital Signs/Intake and Output Vital Signs (last 24 hours): Temp Pulse Resp BP Pulse Ox 98.2 F 83 20 130/67 92 L 12/27/17 21:52 12/28/17 12:32 12/27/17 21:52 12/27/17 21:52 12/27/17 21:52 - Medications Medications: Current Medications Acetaminophen (Tylenol 325mg Tab) 650 mg PO Q4H PRN PRN Reason: Pain, Mild (1-3) Alprazolam (Xanax) 0.5 mg PO BID [facility] PRN Reason: Protocol Last Admin: 12/28/17 12:34 Dose: Not Given Amlodipine Besylate (Norvasc) 5 mg PO DAILY [facility] Last Admin: 12/28/17 12:32 Dose: Not Given Aspirin (Aspirin Chewable) 81 mg PO DAILY [facility] Last Admin: 12/28/17 12:22 Dose: Not Given Atorvastatin Calcium (Lipitor) 20 mg PO DIN [facility] Last Admin: 12/27/17 16:59 Dose: 20 mg Clopidogrel Bisulfate (Plavix) 75 mg PO DAILY [facility] Last Admin: 12/28/17 12:33 Dose: Not Given Cyanocobalamin (Vitamin B12 1000 Mcg/Ml Inj) 1,000 mcg IM DAILY [facility] Stop: 01/01/18 11:00 Last Admin: 12/28/17 12:34 Dose: Not Given Folic Acid (Folic Acid) 1 mg PO DAILY [facility] Last Admin: 12/28/17 12:29 Dose: Not Given Ceftriaxone Sodium (Rocephin 1 Gram Ivpb) 1 gm in 100 mls @ 100 mls/hr IVPB DAILY [facility] PRN Reason: Protocol Stop: 01/02/18 10:01 Last Admin: 12/28/17 12:33 Dose: Not Given Levothyroxine Sodium (Synthroid) 50 mcg PO 0600 [facility] Last Admin: 12/28/17 06:42 Dose: 50 mcg Risperidone (Risperdal Oral Soln) 0.5 mg PO BID [facility] PRN Reason: Protocol Risperidone (Risperdal Oral Soln) 0.5 mg PO HS [facility] PRN Reason: Protocol - Labs Labs: 12/26/17 07:00 12/26/17 07:00
--- NOTE | 2017-12-28 13:27 | PN ---
DATE: 12/28/2017 SUBJECTIVE: The patient was admitted for altered mental status. The patient also has dementia. Psych consult was called because the patient had confusions, agitation and disorganized thoughts. The patient was started on Seroquel. Over the weekend, Dr. Berry changed it to IV Haldol. The patient also had Seroquel at the nighttime. The patient was followed up. Discussed with the nursing staff. As per nursing staff, the patient was agitated overnight required Haldol and Xanax. The patient was evaluated today at the morning time. The patient presented to be irritable, angry, seems to be annoyed with this typewriter ribbon winder's questions. The patient was making comment, "you are not my family, why do I need to listen to you." The patient knows that she is in [facility], but was disoriented to time. The patient is on one-to-one observation. As per one-to-one, the patient ate, but was agitated. Earlier was screaming and tried to pull IV of her hand. VITAL SIGNS: Seems to be stable. Temperature 98.2, pulse is 84, blood pressure 130/67, respiration 20, oxygen saturation is 92. MEDICATIONS: Reviewed. The patient was on Xanax 0.5 mg twice a day scheduled. The patient is on Norvasc 5 mg daily, aspirin, Lipitor, Rocephin for UTI, Plavix, vitamin B12, folic acid 1 mg daily, Synthroid. This typewriter ribbon winder will implement Risperdal oral solution and discontinue Seroquel and IV Haldol. LABORATORY DATA: Reviewed. Most recent was from 12/26. MENTAL STATUS EXAMINATION: The patient appears to be alert, oriented in place, self, but not to time. The patient had angry demeanor. Seems to be annoyed with this typewriter ribbon winder's questions. Intense eye contact. Speech was underproductive. Yes no answers. Mood described not good. Affect was irritable and angry. Thought process concrete. Thought content, the patient seems to be guarded and paranoid. The patient was making comments, "why should I listen to you. You are not my family and pointing fingers towards this typewriter ribbon winder." The patient denied hearing voices. Denied seeing things, but obviously the patient has confusions and psychotic symptoms. The patient denied thoughts of harming herself or others, but at the same time, the patient has episodes of agitation. Insight and judgment seems to be impaired. Impulses are unpredictable. IMPRESSION: Delirium on dementia. This typewriter ribbon winder cannot exclude that delirium will be improving after right treatment of urinary tract infection. PLAN: This typewriter ribbon winder discontinued Seroquel and Haldol IV, Risperdal will give relief for agitation, irritability and will calm the patient down. This typewriter ribbon winder cannot exclude that delirium will be better and the patient will be able to make her decisions about possible power of it recruiter. The patient reported that she has son, Max, but she does not remember the phone number for Max. Discussed with the 7th grade social studies teacher. bunker worker contacted the patient's family and daughter. Since the family was not involved into the patient care. I hope that the patient will be improving and will be able to point any of the family member to help her decision in the future. Most likely the patient needs to have senior care placement. We will follow up and advise accordingly. Thank you very much for letting me participate in care of your patient. Should you have any questions give me a call back. Thank you very much. Ange Garvin MD
--- NOTE | 2017-12-28 16:41 | CARD ---
APPROVED REPORT EXAM: Two-dimensional and M-mode echocardiogram with Doppler and color Doppler. INDICATION 2D DIMENSIONS Left Atrium (2D)4.5 (1.6-4.0cm)IVSd1.4 (0.7-1.1cm) LVDd4.9 (3.9-5.9cm)LVOT Diameter2.0 (1.8-2.4cm) PWd1.0 (0.7-1.1cm)LVDs3.4 (2.5-4.0cm) FS (%) 29.9 %LVEF (%)57.1 (>50%) M-Mode DIMENSIONS Aortic Root2.50 (2.2-3.7cm) Aortic Valve AoV Peak Njvjaptc203.0cm/sAoV VTI34.3cmAO Peak GR.13mmHg LVOT Peak Fdadpqrs00.9cm/sLVOT VTI13.30cmAO Mean GR.7mmHg EDILMA (VMAX)1.40en7MEK (VTI)1.80kw9UI P 1/2 Srie5007zx Mitral Valve MV E Bjpcgpqi419.0cm/sMV E Peak Gr.175mmHgMV A Draoergj22.9cm/s E/A ratio1.2 TDI Lateral E' Peak V4.88cm/sMedial E' Peak V4.34cm/sE/Lateral E'20.7 E/Medial E'23.3 Tricuspid Valve TR Peak Nnnxghbw609hn/sRAP [id number] Peak Gr.30mmHg [id number] LEFT VENTRICLE The left ventricle is normal size. There is mild concentric left ventricular hypertrophy. The systolic function is mildly impaired.EF-45-50% Septal motion consistent with post-operative state. A fib No left ventricle thrombus noted on this study. There is no ventricular septal defect visualized. There is no left ventricular aneurysm. RIGHT VENTRICLE The right ventricle is normal size. There is normal right ventricular wall thickness. The right ventricular systolic function is normal. ATRIA The left atrium is mildly dilated. The right atrium size is normal. The interatrial septum is intact with no evidence for an atrial septal defect. AORTIC VALVE S/p AVR bioprosthetic, trace to mild AR MITRAL VALVE The mitral valve is thickened but opens well. Mitral annular calcification is moderate. Mitral regurgitation is moderate to severe. There is no mitral valve stenosis. There is no evidence of mitral valve prolapse. TRICUSPID VALVE The tricuspid valve leaflets are thickened , but open well. There is mild tricuspid regurgitation.RVSP-40 mmof hg. There is no tricuspid valve stenosis. There is no tricuspid valve prolapse or vegetation. PULMONIC VALVE The pulmonary valve is normal in structure. There is trace pulmonic valvular regurgitation. There is no pulmonic valvular stenosis. GREAT VESSELS The aortic root is normal in size. The ascending aorta is normal in size. The pulmonary artery is normal. The IVC is normal in size and collapses >50% with inspiration. PERICARDIAL EFFUSION There is no pleural effusion. There is no pericardial effusion. <Conclusion> The left ventricle is normal size. There is mild concentric left ventricular hypertrophy. The systolic function is mildly impaired.EF-45-50% A fib S/p AVR bioprosthetic, trace to mild AR Mitral regurgitation is moderate to severe. There is mild tricuspid regurgitation.RVSP-40 mmof hg. There is trace pulmonic valvular regurgitation. There is no pericardial effusion. The IVC is normal in size and collapses >50% with inspiration. No vegetation or thrombus noted.
[2017-12-28] MEDS: Potassium Chloride 20 mEq ER Tab PO ONE ×2 (17:22→17:28)
--- NOTE | 2017-12-28 21:10 | CP.PCM.PN ---
Subjective - Date & Time of Evaluation Date of Evaluation: 12/28/17 Time of Evaluation: 10:50 - Subjective Subjective: Patient is refusing her meds, no fevers, no diarrhea, does not want to eat either. Objective - Vital Signs/Intake and Output Vital Signs (last 24 hours): Temp Pulse Resp BP Pulse Ox 97.4 F L 59 L 18 136/78 95 12/28/17 14:00 12/28/17 14:00 12/28/17 14:00 12/28/17 14:00 12/28/17 14:00 - Medications Medications: Current Medications Acetaminophen (Tylenol 325mg Tab) 650 mg PO Q4H PRN PRN Reason: Pain, Mild (1-3) Alprazolam (Xanax) 0.25 mg PO TID [facility] PRN Reason: Protocol Last Admin: 12/28/17 18:55 Dose: Not Given Amlodipine Besylate (Norvasc) 5 mg PO DAILY [facility] Last Admin: 12/28/17 12:32 Dose: Not Given Aspirin (Aspirin Chewable) 81 mg PO DAILY [facility] Last Admin: 12/28/17 12:22 Dose: Not Given Atorvastatin Calcium (Lipitor) 20 mg PO DIN [facility] Last Admin: 12/28/17 17:29 Dose: Not Given Cefpodoxime Proxetil (Vantin) 200 mg PO Q12 [facility] PRN Reason: Protocol Clopidogrel Bisulfate (Plavix) 75 mg PO DAILY [facility] Last Admin: 12/28/17 12:33 Dose: Not Given Cyanocobalamin (Vitamin B12 1000 Mcg/Ml Inj) 1,000 mcg IM DAILY [facility] Stop: 01/01/18 11:00 Last Admin: 12/28/17 12:34 Dose: Not Given Folic Acid (Folic Acid) 1 mg PO DAILY [facility] Last Admin: 12/28/17 12:29 Dose: Not Given Levothyroxine Sodium (Synthroid) 50 mcg PO 0600 [facility] Last Admin: 12/28/17 06:42 Dose: 50 mcg Risperidone (Risperdal Oral Soln) 0.5 mg PO BID [facility] PRN Reason: Protocol Last Admin: 12/28/17 18:55 Dose: Not Given Risperidone (Risperdal Oral Soln) 0.5 mg PO HS [facility] PRN Reason: Protocol Ziprasidone (Geodon Inj) 10 mg IM BID PRN; Protocol PRN Reason: severe agitaiton/psychosis - Labs Labs: 12/26/17 07:00 12/26/17 07:00 - Constitutional Appears: Chronically Ill - Head Exam Head Exam: NORMAL INSPECTION - Respiratory Exam Respiratory Exam: Decreased Breath Sounds - Cardiovascular Exam Cardiovascular Exam: +S1, +S2 - GI/Abdominal Exam GI & Abdominal Exam: Soft. absent: Tenderness Assessment and Plan - Assessment and Plan (Free Text) Plan: Assessment UTI with E. coli COPD chronic CHF CVA CAD S/P CABG HTN Plan Continue Rocephin day 5 to complete 7-10 days, but can switch to PO Vantin to complete therapy
[2017-12-29] MEDS: Cefpodoxime (Vantin) 200 mg Tab PO SCH ×3 (01:14→22:10)
--- NOTE | 2017-12-29 05:13 | CP.PCM.PN ---
<Arin Ott - Last Filed: 12/29/17 08:43> Subjective - Date & Time of Evaluation Date of Evaluation: 12/29/17 Time of Evaluation: 06:27 - Subjective Subjective: Medicine Progress note for Delilah Jiang PGY3 Patient seen and examined at bedside. Yesterday patient had code french called due to agitation. Medications were adjusted as per psychiatry. Patient has been agitated overnight refusing some of her medication. Patient is somewhat lucid knowing where she is and asking about her daughter, but is still confused. As per PCP patient has been asking similar questions all night and has not been sleeping. She denies chest pain, shortness of breath, nausea/vomiting/diarrhea, fever/chills, numbness/tingling, dysuria or hematuria. Objective - Vital Signs/Intake and Output Vital Signs (last 24 hours): Temp Pulse Resp BP Pulse Ox 97.4 F L 59 L 18 136/78 95 12/28/17 14:00 12/28/17 14:00 12/28/17 14:00 12/28/17 14:00 12/28/17 14:00 - Medications Medications: Current Medications Acetaminophen (Tylenol 325mg Tab) 650 mg PO Q4H PRN PRN Reason: Pain, Mild (1-3) Alprazolam (Xanax) 0.25 mg PO TID [facility] PRN Reason: Protocol Last Admin: 12/28/17 18:55 Dose: Not Given Amlodipine Besylate (Norvasc) 5 mg PO DAILY [facility] Last Admin: 12/28/17 12:32 Dose: Not Given Aspirin (Aspirin Chewable) 81 mg PO DAILY [facility] Last Admin: 12/28/17 12:22 Dose: Not Given Atorvastatin Calcium (Lipitor) 20 mg PO DIN [facility] Last Admin: 12/28/17 17:29 Dose: Not Given Cefpodoxime Proxetil (Vantin) 200 mg PO Q12 [facility] PRN Reason: Protocol Last Admin: 12/29/17 01:14 Dose: Not Given Clopidogrel Bisulfate (Plavix) 75 mg PO DAILY [facility] Last Admin: 12/28/17 12:33 Dose: Not Given Cyanocobalamin (Vitamin B12 1000 Mcg/Ml Inj) 1,000 mcg IM DAILY [facility] Stop: 01/01/18 11:00 Last Admin: 12/28/17 12:34 Dose: Not Given Folic Acid (Folic Acid) 1 mg PO DAILY [facility] Last Admin: 12/28/17 12:29 Dose: Not Given Levothyroxine Sodium (Synthroid) 50 mcg PO 0600 [facility] Last Admin: 12/28/17 06:42 Dose: 50 mcg Risperidone (Risperdal Oral Soln) 0.5 mg PO BID [facility] PRN Reason: Protocol Last Admin: 12/28/17 18:55 Dose: Not Given Risperidone (Risperdal Oral Soln) 0.5 mg PO HS [facility] PRN Reason: Protocol Ziprasidone (Geodon Inj) 10 mg IM BID PRN; Protocol PRN Reason: severe agitaiton/psychosis Last Admin: 12/28/17 23:31 Dose: 10 mg - Labs Labs: 12/26/17 07:00 12/26/17 07:00 - Constitutional Appears: No Acute Distress - Head Exam Head Exam: ATRAUMATIC, NORMAL INSPECTION, NORMOCEPHALIC - Eye Exam Eye Exam: Normal appearance Pupil Exam: NORMAL ACCOMODATION - ENT Exam ENT Exam: Mucous Membranes Moist - Respiratory Exam Respiratory Exam: Clear to Ausculation Bilateral, NORMAL BREATHING PATTERN. absent: Rales, Rhonchi, Wheezes - Cardiovascular Exam Cardiovascular Exam: Irregular Rhythm, +S1, +S2. absent: Gallop, Rubs, Murmur - GI/Abdominal Exam GI & Abdominal Exam: Soft, Normal Bowel Sounds. absent: Rigid, Tenderness, Mass , Rebound - Extremities Exam Extremities Exam: Normal Inspection. absent: Calf Tenderness, Pedal Edema - Neurological Exam Neurological Exam: CN II-XII Intact. absent: Oriented x3 (A&O x 2) - Skin Skin Exam: Abrasion, Dry, Warm Additional comments: bruising on both forearms bilaterally. Skin tear on R forearm. Assessment and Plan - Assessment and Plan (Free Text) Assessment: This is an 82yo female with past medical history of CAD, prosthetic aortic valve , COPD, CHF, TIA who was admitted for 1. AMS - secondary to UTI with possible underlying dementia and delirium as well as hypothyroidism and B12 deficiency - CT head negative 2. UTI - U/A positive - Urine culture + for E.coli 3. Vitamin B12 deficiency 4. Hypothyroidism 5. Paroxysmal a.fib - rate controlled 6. CAD 7. Prosthetic aortic valve 8. CHF (last echo 2012) - CXR negative Plan: Echo reviewed. EF 45-50%, patient in A.fib. Mildly impaired LV function, with bioprosthetic AV valve. Patient's agitation is waxing and waning. She is currently on Xanax, Risperidone tosha and PRN, and geodon prn. Patient is not sleeping at night. Continue medications as per psych. As per ID, patient was switched to PO Vantin for UTI. She will need 2-3 more days of antibiotics. Continue ASA, Norvasc and Lipitor. Patient is refusing some medications a times. As per cardiology, patient will only need to be on ASA for a.fib with prosthetic valve. HR has been normal. Patient is a high risk for falls. She is on Synthroid, Vitamin B12 and folic acid. Patient is ambulating. Continue GI and DVT prophylaxis. Case seen, reviewed and discussed with Dr. Rivera. Delilah Ott PGY3 <Abrahan Rivera S - Last Filed: 12/29/17 18:57> Objective - Vital Signs/Intake and Output Vital Signs (last 24 hours): Temp Pulse Resp BP Pulse Ox 98.2 F 79 18 102/53 L 95 12/29/17 06:00 12/29/17 10:04 12/29/17 06:00 12/29/17 10:04 12/29/17 06:00 - Medications Medications: Current Medications Acetaminophen (Tylenol 325mg Tab) 650 mg PO Q4H PRN PRN Reason: Pain, Mild (1-3) Alprazolam (Xanax) 0.25 mg PO TID [facility] PRN Reason: Protocol Last Admin: 12/29/17 17:46 Dose: 0.25 mg Amlodipine Besylate (Norvasc) 5 mg PO DAILY [facility] Last Admin: 12/29/17 10:04 Dose: 5 mg Aspirin (Aspirin Chewable) 81 mg PO DAILY [facility] Last Admin: 12/29/17 10:04 Dose: 81 mg Atorvastatin Calcium (Lipitor) 20 mg PO DIN [facility] Last Admin: 12/29/17 17:46 Dose: 20 mg Cefpodoxime Proxetil (Vantin) 200 mg PO Q12 [facility] PRN Reason: Protocol Last Admin: 12/29/17 10:04 Dose: 200 mg Cyanocobalamin (Vitamin B12 1000 Mcg/Ml Inj) 1,000 mcg IM DAILY [facility] Stop: 12/31/17 11:01 Last Admin: 12/29/17 10:05 Dose: 1,000 mcg Famotidine (Pepcid) 40 mg PO HS [facility] Folic Acid (Folic Acid) 1 mg PO DAILY [facility] Last Admin: 12/29/17 10:05 Dose: 1 mg Levothyroxine Sodium (Synthroid) 50 mcg PO 0600 [facility] Last Admin: 12/29/17 06:23 Dose: 50 mcg Risperidone (Risperdal Oral Soln) 0.5 mg PO BID [facility] PRN Reason: Protocol Last Admin: 12/29/17 17:47 Dose: 0.5 mg Risperidone (Risperdal Oral Soln) 0.5 mg PO HS [facility] PRN Reason: Protocol Ziprasidone (Geodon Inj) 10 mg IM BID PRN; Protocol PRN Reason: severe agitaiton/psychosis Last Admin: 12/28/17 23:31 Dose: 10 mg - Labs Labs: 12/26/17 07:00 12/29/17 06:30 PT 12.4 SECONDS (9.4-12.5) 12/29/17 08:00 INR 1.08 (0.93-1.08) 12/29/17 08:00 APTT 32.1 Seconds (25.1-36.5) 12/29/17 08:00 Assessment and Plan - Assessment and Plan (Free Text) Plan: Pt seen and examine.I have reviewed the note of the medical attendant and agree with it. I have discussed the assessment and plan with the resident. I have reviewed the patient's labs and medications. Pt is waiting for detention care bed. She is eating well. no pain. On Vti B12 for def. On PO Vantin for UTI.
[2017-12-29] MEDS: Levothyroxine 50 MCG TAB PO SCH (06:23)
--- NOTE | 2017-12-29 06:41 | CP.PCM.PN ---
Subjective - Date & Time of Evaluation Date of Evaluation: 12/29/17 Time of Evaluation: 06:20 - Subjective Subjective: Awake,alert, confuse on 1:1 sitter, no distress Reason for consultation and follow up: Cardiac evaluation, history of COPD, history of CHF, history of aortic valve replacement, admitted for altered mental status and failure to thrive Seen and examined by me and Dr. Ellison Objective - Vital Signs/Intake and Output Vital Signs (last 24 hours): Temp Pulse Resp BP Pulse Ox 97.4 F L 59 L 18 136/78 95 12/28/17 14:00 12/28/17 14:00 12/28/17 14:00 12/28/17 14:00 12/28/17 14:00 - Medications Medications: Current Medications Acetaminophen (Tylenol 325mg Tab) 650 mg PO Q4H PRN PRN Reason: Pain, Mild (1-3) Alprazolam (Xanax) 0.25 mg PO TID [facility] PRN Reason: Protocol Last Admin: 12/28/17 18:55 Dose: Not Given Amlodipine Besylate (Norvasc) 5 mg PO DAILY [facility] Last Admin: 12/28/17 12:32 Dose: Not Given Aspirin (Aspirin Chewable) 81 mg PO DAILY [facility] Last Admin: 12/28/17 12:22 Dose: Not Given Atorvastatin Calcium (Lipitor) 20 mg PO DIN [facility] Last Admin: 12/28/17 17:29 Dose: Not Given Cefpodoxime Proxetil (Vantin) 200 mg PO Q12 [facility] PRN Reason: Protocol Last Admin: 12/29/17 01:14 Dose: Not Given Clopidogrel Bisulfate (Plavix) 75 mg PO DAILY [facility] Last Admin: 12/28/17 12:33 Dose: Not Given Cyanocobalamin (Vitamin B12 1000 Mcg/Ml Inj) 1,000 mcg IM DAILY [facility] Stop: 01/01/18 11:00 Last Admin: 12/28/17 12:34 Dose: Not Given Folic Acid (Folic Acid) 1 mg PO DAILY [facility] Last Admin: 12/28/17 12:29 Dose: Not Given Levothyroxine Sodium (Synthroid) 50 mcg PO 0600 [facility] Last Admin: 12/29/17 06:23 Dose: 50 mcg Risperidone (Risperdal Oral Soln) 0.5 mg PO BID [facility] PRN Reason: Protocol Last Admin: 12/28/17 18:55 Dose: Not Given Risperidone (Risperdal Oral Soln) 0.5 mg PO HS [facility] PRN Reason: Protocol Ziprasidone (Geodon Inj) 10 mg IM BID PRN; Protocol PRN Reason: severe agitaiton/psychosis Last Admin: 12/28/17 23:31 Dose: 10 mg - Labs Labs: 12/26/17 07:00 12/26/17 07:00 - Constitutional Appears: No Acute Distress - Head Exam Head Exam: NORMOCEPHALIC - ENT Exam ENT Exam: Mucous Membranes Moist - Respiratory Exam Respiratory Exam: Decreased Breath Sounds, NORMAL BREATHING PATTERN - Cardiovascular Exam Cardiovascular Exam: +S1, +S2 - GI/Abdominal Exam GI & Abdominal Exam: Soft, Normal Bowel Sounds - Extremities Exam Extremities Exam: Normal Capillary Refill - Neurological Exam Neurological Exam: Alert, Awake Additional comments: confuse with sitter - Skin Skin Exam: Dry, Warm Assessment and Plan - Assessment and Plan (Free Text) Assessment: An 82 year old female who was brought to the ER by neighbor due to altered mental status,weakness and fall. Patient was very confused. History of coronary artery disease,CABG 2008, prosthetic aortic valve replacement, history of COPD , CHF, TIA,. CT scan of head upon admission negative for bleeding. Patient was last seen by family last July. She is being taken cared of by neighbor helping out with groceries. Admitted for altered mental status and failure to thrive. Plan: ECHO -normal LV size, LVEF 45-50% mildly impaired LV function, s/p AVR bioprosthetic, no vegetation, mild AR moderate to severe MR, Mild TR Cardiac status stable Controlled blood pressure, continue Norvasc Still confuse, with sitter Refusing medications, refusing to eat Nutritional support B12 deficiency, with supplements UTI, on antibiotics, ID on consult Continue current medications Continue current treatment Will follow up Plan and treatment discussed with Dr. Ellison
[2017-12-29 07:19] LABS: BLOOD UREA NITROGEN 23 mg/dL (7-21); GFR AFRICAN-AMERICAN > 60; GFR NON-AFRICAN AMERICAN > 60
[2017-12-29] MEDS ORDERED: Potassium Chloride 20 mEq ER Tab PO STA (07:28)
[2017-12-29 08:42] LABS: INR 1.08 (0.93-1.08); PARTIAL THROMBOPLASTIN TIME 32.1 Seconds (25.1-36.5); PROTHROMBIN TIME 12.4 SECONDS (9.4-12.5)
--- NOTE | 2017-12-29 16:33 | CP.PCM.PN ---
Subjective - Date & Time of Evaluation Date of Evaluation: 12/29/17 Time of Evaluation: 10:50 - Subjective Subjective: No fevers, now taking her meds, no diarrhea. Objective - Vital Signs/Intake and Output Vital Signs (last 24 hours): Temp Pulse Resp BP Pulse Ox 98.2 F 79 18 102/53 L 95 12/29/17 06:00 12/29/17 10:04 12/29/17 06:00 12/29/17 10:04 12/29/17 06:00 - Medications Medications: Current Medications Acetaminophen (Tylenol 325mg Tab) 650 mg PO Q4H PRN PRN Reason: Pain, Mild (1-3) Alprazolam (Xanax) 0.25 mg PO TID [facility] PRN Reason: Protocol Last Admin: 12/29/17 10:05 Dose: 0.25 mg Amlodipine Besylate (Norvasc) 5 mg PO DAILY [facility] Last Admin: 12/29/17 10:04 Dose: 5 mg Aspirin (Aspirin Chewable) 81 mg PO DAILY [facility] Last Admin: 12/29/17 10:04 Dose: 81 mg Atorvastatin Calcium (Lipitor) 20 mg PO DIN [facility] Last Admin: 12/28/17 17:29 Dose: Not Given Cefpodoxime Proxetil (Vantin) 200 mg PO Q12 [facility] PRN Reason: Protocol Last Admin: 12/29/17 10:04 Dose: 200 mg Cyanocobalamin (Vitamin B12 1000 Mcg/Ml Inj) 1,000 mcg IM DAILY [facility] Stop: 01/01/18 11:00 Last Admin: 12/29/17 10:05 Dose: 1,000 mcg Famotidine (Pepcid) 40 mg PO HS [facility] Folic Acid (Folic Acid) 1 mg PO DAILY [facility] Last Admin: 12/29/17 10:05 Dose: 1 mg Levothyroxine Sodium (Synthroid) 50 mcg PO 0600 [facility] Last Admin: 12/29/17 06:23 Dose: 50 mcg Risperidone (Risperdal Oral Soln) 0.5 mg PO BID [facility] PRN Reason: Protocol Last Admin: 12/28/17 18:55 Dose: Not Given Risperidone (Risperdal Oral Soln) 0.5 mg PO HS [facility] PRN Reason: Protocol Ziprasidone (Geodon Inj) 10 mg IM BID PRN; Protocol PRN Reason: severe agitaiton/psychosis Last Admin: 12/28/17 23:31 Dose: 10 mg - Labs Labs: 12/26/17 07:00 12/29/17 06:30 PT 12.4 SECONDS (9.4-12.5) 12/29/17 08:00 INR 1.08 (0.93-1.08) 12/29/17 08:00 APTT 32.1 Seconds (25.1-36.5) 12/29/17 08:00 - Constitutional Appears: Non-toxic, Chronically Ill - Head Exam Head Exam: NORMAL INSPECTION - Respiratory Exam Respiratory Exam: Decreased Breath Sounds - Cardiovascular Exam Cardiovascular Exam: +S1, +S2 - GI/Abdominal Exam GI & Abdominal Exam: Soft. absent: Tenderness Assessment and Plan - Assessment and Plan (Free Text) Plan: Assessment UTI with E. coli COPD chronic CHF CVA CAD S/P CABG HTN Plan Continue Vantin day 6 to complete 7-10 days
--- NOTE | 2017-12-29 16:49 | PN ---
DATE: 12/29/2017 SUBJECTIVE: The patient was seen today. The patient presented with mild improvement with her presentation. The patient was smiling today and less irritable and less agitated. The patient seems to have good company with the one-to-one sitter. Based on report, the patient tried to elope yesterday and the patient was redirected back in her room. The patient was noncompliant with the medications, but today the patient seems to be more receptive in regards of the med management. The patient took Risperdal once today and I hope that delirium will be improving very much. LABORATORY DATA: Reviewed. Coagulation reviewed. Toxicology reviewed. MEDICATIONS: The patient is on Xanax 0.25 mg three times a day, Risperdal oral solution 0.5 mg twice a day as well as at the nighttime; and yesterday, the patient required to have IM of Geodon and the patient tolerated that well. MENTAL STATUS EXAM: The patient knows that she is in the hospital. The patient reported that nobody is giving her medication and that is why she is noncompliant with the medications. The patient has better eye contact today. Mood described as "I feel better." Affect was more reactive, mood congruent. Thought process: [place], confabulation, but with some improvement. Thought content: The patient denied thoughts of harming herself or others. Denied intents or plan. Insight and judgment seem to be impaired. Impulses are unpredictable still, but with some improvement. The patient reported that she is able to do grocery shopping and she is able to cook for herself. She is able to manage her finances, but it is questionable. IMPRESSION: The patient seems to be in delirium stage, questionable dementia. Delirium is improving. PLAN: Continue current management. Continue current medication. The patient was on course to take medication. The patient followed that advice. The patient took one dose of Risperdal liquid, Xanax for anxiety. Family needs to be involved. I hope that mental status will be improving and the patient will be able to make her decisions for herself. Thank you very much for letting me participate in care of your patient. Should you have any questions, give me a call back. Ange Garvin MD [facility] # [id number] [facility]
[2017-12-30] MEDS: Levothyroxine 50 MCG TAB PO SCH (06:13)
--- NOTE | 2017-12-30 06:39 | CP.PCM.PN ---
Subjective - Date & Time of Evaluation Date of Evaluation: 12/30/17 Time of Evaluation: 06:20 - Subjective Subjective: Awake,alert, sitting by the window,calm but confuse on 1:1 sitter, no distress Reason for consultation and follow up: Cardiac evaluation, history of COPD, history of CHF, history of aortic valve replacement, admitted for altered mental status and failure to thrive Seen and examined by me and Dr. Ellison Objective - Vital Signs/Intake and Output Vital Signs (last 24 hours): Temp Pulse Resp BP Pulse Ox 98.2 F 79 18 102/53 L 95 12/29/17 06:00 12/29/17 10:04 12/29/17 06:00 12/29/17 10:04 12/29/17 06:00 - Medications Medications: Current Medications Acetaminophen (Tylenol 325mg Tab) 650 mg PO Q4H PRN PRN Reason: Pain, Mild (1-3) Alprazolam (Xanax) 0.25 mg PO TID [facility] PRN Reason: Protocol Last Admin: 12/29/17 17:46 Dose: 0.25 mg Amlodipine Besylate (Norvasc) 5 mg PO DAILY [facility] Last Admin: 12/29/17 10:04 Dose: 5 mg Aspirin (Aspirin Chewable) 81 mg PO DAILY [facility] Last Admin: 12/29/17 10:04 Dose: 81 mg Atorvastatin Calcium (Lipitor) 20 mg PO DIN [facility] Last Admin: 12/29/17 17:46 Dose: 20 mg Cefpodoxime Proxetil (Vantin) 200 mg PO Q12 [facility] PRN Reason: Protocol Last Admin: 12/29/17 22:10 Dose: 200 mg Cyanocobalamin (Vitamin B12 1000 Mcg/Ml Inj) 1,000 mcg IM DAILY [facility] Stop: 12/31/17 11:01 Last Admin: 12/29/17 10:05 Dose: 1,000 mcg Famotidine (Pepcid) 40 mg PO HS [facility] Last Admin: 12/29/17 22:10 Dose: 40 mg Folic Acid (Folic Acid) 1 mg PO DAILY [facility] Last Admin: 12/29/17 10:05 Dose: 1 mg Levothyroxine Sodium (Synthroid) 50 mcg PO 0600 [facility] Last Admin: 12/30/17 06:13 Dose: 50 mcg Risperidone (Risperdal Oral Soln) 0.5 mg PO BID [facility] PRN Reason: Protocol Last Admin: 12/29/17 17:47 Dose: 0.5 mg Risperidone (Risperdal Oral Soln) 0.5 mg PO HS [facility] PRN Reason: Protocol Last Admin: 12/29/17 23:46 Dose: 0.5 mg Ziprasidone (Geodon Inj) 10 mg IM BID PRN; Protocol PRN Reason: severe agitaiton/psychosis Last Admin: 12/28/17 23:31 Dose: 10 mg - Labs Labs: 12/26/17 07:00 12/29/17 06:30 PT 12.4 SECONDS (9.4-12.5) 12/29/17 08:00 INR 1.08 (0.93-1.08) 12/29/17 08:00 APTT 32.1 Seconds (25.1-36.5) 12/29/17 08:00 - Constitutional Appears: No Acute Distress - Head Exam Head Exam: NORMOCEPHALIC - Eye Exam Eye Exam: Normal appearance - ENT Exam ENT Exam: Mucous Membranes Moist - Respiratory Exam Respiratory Exam: Decreased Breath Sounds, NORMAL BREATHING PATTERN - Cardiovascular Exam Cardiovascular Exam: +S1, +S2 - GI/Abdominal Exam GI & Abdominal Exam: Soft, Normal Bowel Sounds - Extremities Exam Extremities Exam: Normal Capillary Refill - Neurological Exam Neurological Exam: Alert, Awake Additional comments: confuse with sitter - Skin Skin Exam: Intact, Normal Color, Warm Assessment and Plan - Assessment and Plan (Free Text) Assessment: An 82 year old female who was brought to the ER by neighbor due to altered mental status,weakness and fall. Patient was very confused. History of coronary artery disease,CABG 2008, prosthetic aortic valve replacement, history of COPD , CHF, TIA,. CT scan of head upon admission negative for bleeding. Patient was last seen by family last July. She is being taken cared of by neighbor helping out with groceries. Admitted for altered mental status and failure to thrive.ECHO -normal LV size, LVEF 45-50%, mildly impaired LV function, s/p AVR bioprosthetic, no vegetation, mild AR, moderate to severe MR, Mild TR. Improved clinically,awake,alert,confuse with sitter. Plan: Sitting on chair by the window with sitter, still confuse although more awake and alert Cardiac status stable Controlled blood pressure and heart rate Nutritional support Continue antibiotics per ID for urinary tract infection (E. Coli) Will increase dose of Synthroid Continue current medications Continue current treatment Will follow up Plan and treatment discussed with Dr. Ellison
[2017-12-30] MEDS: Cefpodoxime (Vantin) 200 mg Tab PO SCH (10:02)
--- NOTE | 2017-12-30 10:51 | CP.PCM.PN ---
<Arin Ott - Last Filed: 12/30/17 11:21> Subjective - Date & Time of Evaluation Date of Evaluation: 12/30/17 Time of Evaluation: 07:00 - Subjective Subjective: Medicine Progress Note for Delilah Jiang PGY3 Patient seen and examined at bedside. There were no acute overnight events as per nursing staff. Patient slept well overnight. Patient is less agitated, but still confused and refusing medication despite lengthy explanation of why she needs her medications. Patient denies chest pain, shortness of breath, nausea/ vomiting/diarrhea, numbness/tingling, fever/chills, dysuria/hematuria. Objective - Vital Signs/Intake and Output Vital Signs (last 24 hours): Temp Pulse Resp BP Pulse Ox 98.2 F 84 20 166/80 H 93 L 12/30/17 06:00 12/30/17 10:05 12/30/17 06:00 12/30/17 10:05 12/30/17 06:00 - Medications Medications: Current Medications Acetaminophen (Tylenol 325mg Tab) 650 mg PO Q4H PRN PRN Reason: Pain, Mild (1-3) Alprazolam (Xanax) 0.25 mg PO TID [facility] PRN Reason: Protocol Last Admin: 12/30/17 10:02 Dose: 0.25 mg Amlodipine Besylate (Norvasc) 5 mg PO DAILY [facility] Last Admin: 12/30/17 10:05 Dose: 5 mg Aspirin (Aspirin Chewable) 81 mg PO DAILY [facility] Last Admin: 12/30/17 10:02 Dose: 81 mg Atorvastatin Calcium (Lipitor) 20 mg PO DIN [facility] Last Admin: 12/29/17 17:46 Dose: 20 mg Cefpodoxime Proxetil (Vantin) 200 mg PO Q12 [facility] PRN Reason: Protocol Last Admin: 12/30/17 10:02 Dose: 200 mg Cyanocobalamin (Vitamin B12 1000 Mcg/Ml Inj) 1,000 mcg IM DAILY [facility] Stop: 12/31/17 11:01 Last Admin: 12/30/17 10:04 Dose: 1,000 mcg Famotidine (Pepcid) 40 mg PO HS [facility] Last Admin: 12/29/17 22:10 Dose: 40 mg Folic Acid (Folic Acid) 1 mg PO DAILY [facility] Last Admin: 12/30/17 10:06 Dose: 1 mg Levothyroxine Sodium (Synthroid) 100 mcg PO 0600 [facility] Risperidone (Risperdal Oral Soln) 0.5 mg PO BID [facility] PRN Reason: Protocol Last Admin: 12/30/17 10:02 Dose: 0.5 mg Risperidone (Risperdal Oral Soln) 0.5 mg PO HS [facility] PRN Reason: Protocol Last Admin: 12/29/17 23:46 Dose: 0.5 mg Ziprasidone (Geodon Inj) 10 mg IM BID PRN; Protocol PRN Reason: severe agitaiton/psychosis Last Admin: 12/28/17 23:31 Dose: 10 mg - Labs Labs: 12/26/17 07:00 12/29/17 06:30 PT 12.4 SECONDS (9.4-12.5) 12/29/17 08:00 INR 1.08 (0.93-1.08) 12/29/17 08:00 APTT 32.1 Seconds (25.1-36.5) 12/29/17 08:00 - Constitutional Appears: No Acute Distress, Confused - Head Exam Head Exam: ATRAUMATIC, NORMAL INSPECTION, NORMOCEPHALIC - Eye Exam Eye Exam: Normal appearance Pupil Exam: NORMAL ACCOMODATION - ENT Exam ENT Exam: Mucous Membranes Moist - Respiratory Exam Respiratory Exam: Clear to Ausculation Bilateral, NORMAL BREATHING PATTERN. absent: Rales, Rhonchi, Wheezes - Cardiovascular Exam Cardiovascular Exam: REGULAR RHYTHM, +S1, +S2. absent: Gallop, Rubs, Murmur - GI/Abdominal Exam GI & Abdominal Exam: Soft, Normal Bowel Sounds. absent: Rigid, Tenderness, Rebound - Extremities Exam Extremities Exam: Normal Inspection. absent: Calf Tenderness, Pedal Edema - Neurological Exam Neurological Exam: Alert, Awake. absent: Oriented x3 - Psychiatric Exam Additional comments: confused - Skin Skin Exam: Dry, Warm Additional comments: bruising on arms bilaterally Assessment and Plan - Assessment and Plan (Free Text) Assessment: This is an 82yo female with past medical history of CAD, prosthetic aortic valve , COPD, CHF, TIA who was admitted for 1. AMS - secondary to delirium with underlying dementia - CT head negative 2. UTI - U/A positive - Urine culture + for E.coli 3. Vitamin B12 deficiency 4. Hypothyroidism 5. Paroxysmal a.fib - rate controlled 6. CAD 7. Prosthetic aortic valve 8. CHF (last echo 2012) - CXR negative Plan: Patient will need 2 more days of PO Vantin, but refusing medication. Patient is less agitated, but lacks judgment, insight and capacity to make decisions for herself. Patient is unable to care for herself. Patient has underlying dementia with history of stroke, hypothyroidism and vitamin B12 deficiency. Patient has been placed on medications to correct the underlying problems, but still remains in a confused state and refusing treatment. Patient will ask a question and will need to have it re-explained multiple times and does not exhibit any understanding or comprehesion. She does not remember what has happened the past several days despite re-orientation. She will report to the psychiatrist is it Winter outside when looking out the window when it is December. Although patient is less agitated, it is very unlikely she will become lucid and be able to take care of herself. We have observed the patient for one week and she has not made any improvements to her mentation. She is unable to care for herself is harmful to herself. She will need 24hr care and be placed in skilled nursing. Patient has been evaluated by psychiatry and cardiology. We will continue ASA, Norvasc and Lipitor. Continue Risperidone and geodon prn as well as synthroid, Vitamin B12 and folic acid. Patient is medically stable is clear for discharge once placement is arranged. Patient is at risk for hospital acquired infections while she remains in the hospital. At this time, case management is working on legal guardianship for this patient. Case seen, reviewed and discussed with Dr. Rivera. Delilah Ott PGY3 <Abrahan Rivera - Last Filed: 12/31/17 19:36> Objective - Vital Signs/Intake and Output Vital Signs (last 24 hours): Temp Pulse Resp BP Pulse Ox 98.4 F 87 20 123/67 94 L 12/31/17 14:00 12/31/17 14:00 12/31/17 14:00 12/31/17 14:00 12/31/17 14:00 Intake and Output: 12/31/17 01/01/18 18:59 06:59 Intake Total 1200 Output Total 650 Balance 550 - Medications Medications: Current Medications Acetaminophen (Tylenol 325mg Tab) 650 mg PO Q4H PRN PRN Reason: Pain, Mild (1-3) Alprazolam (Xanax) 0.25 mg PO TID [facility] PRN Reason: Protocol Last Admin: 12/31/17 17:06 Dose: 0.25 mg Alprazolam (Xanax) 0.5 mg PO HS PRN; Protocol PRN Reason: Anxiety/insomnia Amlodipine Besylate (Norvasc) 5 mg PO DAILY [facility] Last Admin: 12/31/17 09:17 Dose: 5 mg Aspirin (Aspirin Chewable) 81 mg PO DAILY [facility] Last Admin: 12/31/17 09:18 Dose: 81 mg Atorvastatin Calcium (Lipitor) 20 mg PO DIN [facility] Last Admin: 12/31/17 17:06 Dose: 20 mg Cefpodoxime Proxetil (Vantin) 200 mg PO Q12 [facility] PRN Reason: Protocol Last Admin: 12/31/17 09:17 Dose: 200 mg Famotidine (Pepcid) 40 mg PO HS [facility] Last Admin: 12/30/17 22:42 Dose: 40 mg Folic Acid (Folic Acid) 1 mg PO DAILY [facility] Last Admin: 12/31/17 09:18 Dose: 1 mg Levothyroxine Sodium (Synthroid) 100 mcg PO 0600 [facility] Last Admin: 12/31/17 06:42 Dose: 100 mcg Risperidone (Risperdal Oral Soln) 0.5 mg PO BID [facility] PRN Reason: Protocol Last Admin: 12/31/17 17:06 Dose: 0.5 mg Risperidone (Risperdal Oral Soln) 0.5 mg PO HS [facility] PRN Reason: Protocol Last Admin: 12/30/17 22:42 Dose: 0.5 mg - Labs Labs: 12/26/17 07:00 12/29/17 06:30 PT 12.4 SECONDS (9.4-12.5) 12/29/17 08:00 INR 1.08 (0.93-1.08) 12/29/17 08:00 APTT 32.1 Seconds (25.1-36.5) 12/29/17 08:00 Assessment and Plan - Assessment and Plan (Free Text) Plan: Pt seen and examined yesterday. This is a late entry. I have reviewed the note of the medical records library professor and agree with it. I have discussed the assessment and plan with the resident. I have reviewed the patient's labs and medications.Pt is waiting for daughter to be her proxy and will wait for termite treater care acceptance. She has been on 1:1 to prevent her from walking off the floor. She is on Norvasc for HTN.
--- NOTE | 2017-12-30 13:46 | PN ---
DATE: 12/30/2017 SUBJECTIVE: Shortly, the patient is an 82-year-old female with not known previous psychiatric history. The patient has multiple medical issues including COPD, CHF. 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 The patient came to the hospital status post fall and failure to thrive for one day. The patient presented to be confused, delirium due to urinary tract infection. The patient also lives alone. The patient has no family who is involved into her care. The patient has daughter as well as son who is estranged for her. The patient's neighbor was helping the patient in regards of her daily activities. As per Emergency Room documentation, the patient was feeling fatigued as well as status post fall. The patient also was noncompliant with the medications for her medical issues, which seems to be very dangerous. The patient seems to be not able to take care of herself in the community. This auto service writer involved into the patient care because the patient had episodes of confusion, agitation, altered mental status which could be related to urinary tract infection, multifactorial delirium as well as dementia. This auto service writer was following the patient up for past three days. The patient showed some improvement with her presentation. The patient is much calmer. The patient is compliant with the medications, but at the same time, the patient is very confused. The patient feels that right now it is winter. Even though that the patient was looking onto window and there is no snow outside, the patient was not able to comprehend that right now it is summer time. The patient's rationale was it does not really matter, there are some busch with no snow. The patient was not able to recognize that people walking with a short sleeves and shorts. The patient seems to be severely confused. The patient does not have basic understanding about her diagnosis, treatment plan as well as outcome being with treatment or without treatment. The patient reported that she is the one who is managing her finances. The patient reported that she lives alone. The patient said that she is doing grocery shopping and she is cooking for herself, but it is very questionable because the patient has wandering behavior. Two days ago, the patient tried to elope from the hospital. The patient is constantly on one to one observation because the patient is very confused and wandering. The patient also seems to be very vulnerable in the community because the patient is not having good insight and judgment and the patient has wandering behavior in the community and not able to take care of herself. Going back to the patient's presentation, vital signs seemed to be stable, temperature 98.2, pulse is 84, blood pressure elevated 166/80, respirations 26, oxygen saturation is 93. Medications reviewed. The patient is on Tylenol for pain, Xanax 0.25 mg three times a day as scheduled, Norvasc, aspirin, Lipitor, Vantin, vitamin B12, famotidine, folic acid, Synthroid, Risperdal 0.5 mg twice a day and at the nighttime for confusion, agitation and hallucinations. Geodon was given 10 mg IM on 12/28 because the patient tried to elope, was not able to be redirected. Labs reviewed, most recent was from 12/26. MENTAL STATUS EXAMINATION: The patient presented to be confused. The patient knows that she is in the hospital, but does not remember this auto service writer, even though this auto service writer is seeing the patient on daily basis for three days. The patient does not know what is the date today and the patient feels that in winter, the patient was not able to comprehend that now it is summer. The patient described her mood as good. Affect was flat, at times irritable. Speech is disorganized. The patient has tendency to confabulate. Thought content, the patient at times feels paranoid, but denied hearing voices or seeing things. Denied thoughts of harming herself or others. Denied intent or plan. Insight and judgment seems to be impaired. Impulses are better controlled now but the patient has tendency of wandering and tried to elope from the hospital two days back. The patient was seen by neurologist. Based on evaluation, most likely the patient has vascular dementia with superimposed underlying cognitive impairment. The patient also has delirium, which is related to urinary tract infection, agree with that. 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 PLAN: Based on my evaluation, the patient has poor insight and judgment, the patient lacks capacity to make decision for herself. The patient deemed to be not able to take care of herself, was not able to manage her finances, was wandering in the community. The patient has no family who is there for the patient and the patient's daughter and son seems to be estranged for her which gives the patient increased vulnerability in the community. In regards of the prognosis, overall prognosis is poor. The patient has organic changes confirmed by CT scan as well as Neurology evaluation. The patient has vascular dementia, but at the same time with proper treatment for urinary tract infection, the patient seems to be more manageable on the unit. The patient is compliant with the medications, does not have any aggression or agitation. The patient deemed to be not able to take care of herself. The patient needs to have either Care Home placement or 24x7 supervised care. In regards of the medical clearance, it is up to the medical team, the patient was seen by Infectious Disease. The patient is on antibiotics for urinary tract infection. Meanwhile, continue current management. The patient has no power of staff attorney and most likely, the patient requires to have guardianship at this moment. The patient should be continued on following medications; Xanax, a short acting medication and will give relief from anxiety and the patient's mental status will be improving on Risperdal liquid form 0.5 mg twice a day at the nighttime and it will help with the patient's irritability and impulsivity. We will follow up and advise accordingly. The patient is to be continued on one to one for wandering behavior. Management of this case took more than 45 minutes of this auto service writer's time. Thank you very much for letting me participate in care of your patient. Should you have any questions, give me a call back. Ange Garvin MD
--- NOTE | 2017-12-30 17:13 | CP.PCM.PN ---
Subjective - Date & Time of Evaluation Date of Evaluation: 12/30/17 Time of Evaluation: 11:10 - Subjective Subjective: Comfortable, no fevers. Objective - Vital Signs/Intake and Output Vital Signs (last 24 hours): Temp Pulse Resp BP Pulse Ox 98.2 F 84 20 166/80 H 93 L 12/30/17 06:00 12/30/17 06:00 12/30/17 06:00 12/30/17 06:00 12/30/17 06:00 - Medications Medications: Current Medications Acetaminophen (Tylenol 325mg Tab) 650 mg PO Q4H PRN PRN Reason: Pain, Mild (1-3) Alprazolam (Xanax) 0.25 mg PO TID [facility] PRN Reason: Protocol Last Admin: 12/29/17 17:46 Dose: 0.25 mg Amlodipine Besylate (Norvasc) 5 mg PO DAILY [facility] Last Admin: 12/29/17 10:04 Dose: 5 mg Aspirin (Aspirin Chewable) 81 mg PO DAILY [facility] Last Admin: 12/29/17 10:04 Dose: 81 mg Atorvastatin Calcium (Lipitor) 20 mg PO DIN [facility] Last Admin: 12/29/17 17:46 Dose: 20 mg Cefpodoxime Proxetil (Vantin) 200 mg PO Q12 [facility] PRN Reason: Protocol Last Admin: 12/29/17 22:10 Dose: 200 mg Cyanocobalamin (Vitamin B12 1000 Mcg/Ml Inj) 1,000 mcg IM DAILY [facility] Stop: 12/31/17 11:01 Last Admin: 12/29/17 10:05 Dose: 1,000 mcg Famotidine (Pepcid) 40 mg PO HS [facility] Last Admin: 12/29/17 22:10 Dose: 40 mg Folic Acid (Folic Acid) 1 mg PO DAILY [facility] Last Admin: 12/29/17 10:05 Dose: 1 mg Levothyroxine Sodium (Synthroid) 100 mcg PO 0600 [facility] Risperidone (Risperdal Oral Soln) 0.5 mg PO BID [facility] PRN Reason: Protocol Last Admin: 12/29/17 17:47 Dose: 0.5 mg Risperidone (Risperdal Oral Soln) 0.5 mg PO HS [facility] PRN Reason: Protocol Last Admin: 12/29/17 23:46 Dose: 0.5 mg Ziprasidone (Geodon Inj) 10 mg IM BID PRN; Protocol PRN Reason: severe agitaiton/psychosis Last Admin: 12/28/17 23:31 Dose: 10 mg - Labs Labs: 12/26/17 07:00 12/29/17 06:30 PT 12.4 SECONDS (9.4-12.5) 12/29/17 08:00 INR 1.08 (0.93-1.08) 12/29/17 08:00 APTT 32.1 Seconds (25.1-36.5) 12/29/17 08:00 - Constitutional Appears: Chronically Ill - Head Exam Head Exam: NORMAL INSPECTION - Respiratory Exam Respiratory Exam: Decreased Breath Sounds - Cardiovascular Exam Cardiovascular Exam: +S1, +S2 - GI/Abdominal Exam GI & Abdominal Exam: Soft. absent: Tenderness Assessment and Plan - Assessment and Plan (Free Text) Plan: Assessment UTI with E. coli COPD chronic CHF CVA CAD S/P CABG HTN Plan Continue Vantin day 7 to complete 7-10 days
--- NOTE | 2017-12-31 05:28 | CP.PCM.PN ---
Addendum entered and electronically signed by Arin Ott DO 12/31/17 09: 02: Daughter signed power of criminal defense attorney. 1:1 d/c. Anticipated d/c date is tomorrow once 1:1 d/c for 24hrs. Original Note: <Arin Ott - Last Filed: 12/31/17 08:51> Subjective - Date & Time of Evaluation Date of Evaluation: 12/31/17 Time of Evaluation: 07:00 - Subjective Subjective: Medicine Progress note for Delilah Jiang PGY3 Patient seen and examined at bedside. There were no acute overnight events as per nursing staff. Patient slept well overnight, but did have to get geodon once yesterday because she did try to leave. Patient is still confused. She denies chest pain, shortness of breath, nausea/vomiting/diarrhea, fever/chills, numbness/tingling, dysuria or hematuria. Objective - Vital Signs/Intake and Output Vital Signs (last 24 hours): Temp Pulse Resp BP Pulse Ox 98.2 F 87 94 H 139/81 93 L 12/30/17 14:00 12/30/17 14:00 12/30/17 14:00 12/30/17 14:00 12/30/17 06:00 - Medications Medications: Current Medications Acetaminophen (Tylenol 325mg Tab) 650 mg PO Q4H PRN PRN Reason: Pain, Mild (1-3) Alprazolam (Xanax) 0.25 mg PO TID ANA MARÍA PRN Reason: Protocol Last Admin: 12/30/17 17:20 Dose: 0.25 mg Amlodipine Besylate (Norvasc) 5 mg PO DAILY [facility] Last Admin: 12/30/17 10:05 Dose: 5 mg Aspirin (Aspirin Chewable) 81 mg PO DAILY [facility] Last Admin: 12/30/17 10:02 Dose: 81 mg Atorvastatin Calcium (Lipitor) 20 mg PO DIN [facility] Last Admin: 12/30/17 17:19 Dose: 20 mg Cefpodoxime Proxetil (Vantin) 200 mg PO Q12 ANA MAR[facility]A PRN Reason: Protocol Last Admin: 12/30/17 10:02 Dose: 200 mg Cyanocobalamin (Vitamin B12 1000 Mcg/Ml Inj) 1,000 mcg IM DAILY [facility] Stop: 12/31/17 11:01 Last Admin: 12/30/17 10:04 Dose: 1,000 mcg Famotidine (Pepcid) 40 mg PO HS [facility] Last Admin: 12/30/17 22:42 Dose: 40 mg Folic Acid (Folic Acid) 1 mg PO DAILY [facility] Last Admin: 12/30/17 10:06 Dose: 1 mg Levothyroxine Sodium (Synthroid) 100 mcg PO 0600 [facility] Risperidone (Risperdal Oral Soln) 0.5 mg PO BID ANA [facility] PRN Reason: Protocol Last Admin: 12/30/17 17:22 Dose: 0.5 mg Risperidone (Risperdal Oral Soln) 0.5 mg PO HS ANA [facility] PRN Reason: Protocol Last Admin: 12/30/17 22:42 Dose: 0.5 mg Ziprasidone (Geodon Inj) 10 mg IM BID PRN; Protocol PRN Reason: severe agitaiton/psychosis Last Admin: 12/30/17 21:22 Dose: 10 mg - Labs Labs: 12/26/17 07:00 12/29/17 06:30 PT 12.4 SECONDS (9.4-12.5) 12/29/17 08:00 INR 1.08 (0.93-1.08) 12/29/17 08:00 APTT 32.1 Seconds (25.1-36.5) 12/29/17 08:00 - Constitutional Appears: No Acute Distress, Confused - Head Exam Head Exam: ATRAUMATIC, NORMAL INSPECTION, NORMOCEPHALIC - Eye Exam Eye Exam: Normal appearance, PERRL Pupil Exam: NORMAL ACCOMODATION - ENT Exam ENT Exam: Mucous Membranes Moist - Respiratory Exam Respiratory Exam: Clear to Ausculation Bilateral, NORMAL BREATHING PATTERN. absent: Rales, Rhonchi, Wheezes - Cardiovascular Exam Cardiovascular Exam: REGULAR RHYTHM, +S1, +S2. absent: Gallop, Rubs, Murmur - GI/Abdominal Exam GI & Abdominal Exam: Soft, Normal Bowel Sounds. absent: Rigid, Tenderness, Mass , Rebound - Extremities Exam Extremities Exam: Normal Inspection. absent: Calf Tenderness, Pedal Edema - Neurological Exam Neurological Exam: Alert, Awake, CN II-XII Intact. absent: Oriented x3 - Skin Skin Exam: Dry, Warm Assessment and Plan - Assessment and Plan (Free Text) Assessment: This is an 82yo female with past medical history of CAD, prosthetic aortic valve , COPD, CHF, TIA who was admitted for 1. AMS - secondary to delirium with underlying dementia - can also be exacerbated with UTI, vitamin B12 deficiency and hypothryoidiam - CT head negative 2. UTI - U/A positive - Urine culture + for E.coli 3. Vitamin B12 deficiency 4. Hypothyroidism 5. Paroxysmal a.fib - rate controlled 6. CAD 7. Prosthetic aortic valve 8. CHF (last echo 2012) - CXR negative Plan: Continue last day of PO Vantin for UTI. Continue Geodon prn as well as Xanax and risperidone as per psych. Patient still has confusion and cannot make decisions for herself. She lacks judgement, insight and capacity to make decisions for herself. As per social work, patient's daughter may become power of criminal defense attorney. Patient will need to be placed in residential care. We will continue synthroid and vitamin B12. Continue ASA, Norvasc and Lipitor. Patient is on 1:1 because she keeps trying to elope. Continue GI and DVT prophylaxis. It is unlikely patient will become lucid. After 1 week patient continues to be confused. Will continue to work with social media manager and family for long wall shear operator care. Case seen, reviewed and discussed with Dr. Rivera. Delilah Ott PGY3 <Abrahan Rivera S - Last Filed: 12/31/17 23:06> Objective - Vital Signs/Intake and Output Vital Signs (last 24 hours): Temp Pulse Resp BP Pulse Ox 98.4 F 87 20 123/67 94 L 12/31/17 14:00 12/31/17 14:00 12/31/17 14:00 12/31/17 14:00 12/31/17 14:00 Intake and Output: 12/31/17 01/01/18 18:59 06:59 Intake Total 1200 Output Total 650 Balance 550 - Medications Medications: Current Medications Acetaminophen (Tylenol 325mg Tab) 650 mg PO Q4H PRN PRN Reason: Pain, Mild (1-3) Alprazolam (Xanax) 0.25 mg PO TID ANA MARÍA PRN Reason: Protocol Last Admin: 12/31/17 17:06 Dose: 0.25 mg Alprazolam (Xanax) 0.5 mg PO HS PRN; Protocol PRN Reason: Anxiety/insomnia Amlodipine Besylate (Norvasc) 5 mg PO DAILY [facility] Last Admin: 12/31/17 09:17 Dose: 5 mg Aspirin (Aspirin Chewable) 81 mg PO DAILY [facility] Last Admin: 12/31/17 09:18 Dose: 81 mg Atorvastatin Calcium (Lipitor) 20 mg PO DIN [facility] Last Admin: 12/31/17 17:06 Dose: 20 mg Cefpodoxime Proxetil (Vantin) 200 mg PO Q12 ANA MARÍA PRN Reason: Protocol Last Admin: 12/31/17 21:20 Dose: 200 mg Famotidine (Pepcid) 40 mg PO HS [facility] Last Admin: 12/31/17 21:20 Dose: 40 mg Folic Acid (Folic Acid) 1 mg PO DAILY [facility] Last Admin: 12/31/17 09:18 Dose: 1 mg Levothyroxine Sodium (Synthroid) 100 mcg PO 0600 [facility] Last Admin: 12/31/17 06:42 Dose: 100 mcg Risperidone (Risperdal Oral Soln) 0.5 mg PO BID [facility] PRN Reason: Protocol Last Admin: 12/31/17 17:06 Dose: 0.5 mg Risperidone (Risperdal Oral Soln) 0.5 mg PO HS [facility] PRN Reason: Protocol Last Admin: 12/31/17 21:31 Dose: 0.5 mg - Labs Labs: 12/26/17 07:00 12/29/17 06:30 PT 12.4 SECONDS (9.4-12.5) 12/29/17 08:00 INR 1.08 (0.93-1.08) 12/29/17 08:00 APTT 32.1 Seconds (25.1-36.5) 12/29/17 08:00 Assessment and Plan - Assessment and Plan (Free Text) Plan: Pt seen and examined. I have reviewed the note of the medical staff credentialing coordinator and agree with it. I have discussed the assessment and plan with the resident. I have reviewed the patient's labs and medications. Pt is eating ok. Denies pain. B12 being replaced.
[2017-12-31] MEDS: Levothyroxine 100 MCG TAB PO SCH (06:42)
--- NOTE | 2017-12-31 07:51 | CP.PCM.PN ---
Subjective - Date & Time of Evaluation Date of Evaluation: 12/31/17 Time of Evaluation: 06:35 - Subjective Subjective: Sleeping but easily awaken ,alert, calm but confuse on 1:1 sitter, no distress Reason for consultation and follow up: Cardiac evaluation, history of COPD, history of CHF, history of aortic valve replacement, admitted for altered mental status and failure to thrive Seen and examined by me and Dr. Ellison Objective - Vital Signs/Intake and Output Vital Signs (last 24 hours): Temp Pulse Resp BP Pulse Ox 98.2 F 87 94 H 139/81 93 L 12/30/17 14:00 12/30/17 14:00 12/30/17 14:00 12/30/17 14:00 12/30/17 06:00 - Medications Medications: Current Medications Acetaminophen (Tylenol 325mg Tab) 650 mg PO Q4H PRN PRN Reason: Pain, Mild (1-3) Alprazolam (Xanax) 0.25 mg PO TID ANA MARÍA PRN Reason: Protocol Last Admin: 12/31/17 07:34 Dose: 0.25 mg Amlodipine Besylate (Norvasc) 5 mg PO DAILY [facility] Last Admin: 12/30/17 10:05 Dose: 5 mg Aspirin (Aspirin Chewable) 81 mg PO DAILY [facility] Last Admin: 12/30/17 10:02 Dose: 81 mg Atorvastatin Calcium (Lipitor) 20 mg PO DIN [facility] Last Admin: 12/30/17 17:19 Dose: 20 mg Cefpodoxime Proxetil (Vantin) 200 mg PO Q12 ANA MARÍA PRN Reason: Protocol Last Admin: 12/30/17 10:02 Dose: 200 mg Cyanocobalamin (Vitamin B12 1000 Mcg/Ml Inj) 1,000 mcg IM DAILY [facility] Stop: 12/31/17 11:01 Last Admin: 12/30/17 10:04 Dose: 1,000 mcg Famotidine (Pepcid) 40 mg PO HS [facility] Last Admin: 12/30/17 22:42 Dose: 40 mg Folic Acid (Folic Acid) 1 mg PO DAILY [facility] Last Admin: 12/30/17 10:06 Dose: 1 mg Levothyroxine Sodium (Synthroid) 100 mcg PO 0600 [facility] Last Admin: 12/31/17 06:42 Dose: 100 mcg Risperidone (Risperdal Oral Soln) 0.5 mg PO BID [facility] PRN Reason: Protocol Last Admin: 12/30/17 17:22 Dose: 0.5 mg Risperidone (Risperdal Oral Soln) 0.5 mg PO HS ANA [facility]ÍA PRN Reason: Protocol Last Admin: 12/30/17 22:42 Dose: 0.5 mg Ziprasidone (Geodon Inj) 10 mg IM BID PRN; Protocol PRN Reason: severe agitaiton/psychosis Last Admin: 12/30/17 21:22 Dose: 10 mg - Labs Labs: 12/26/17 07:00 12/29/17 06:30 PT 12.4 SECONDS (9.4-12.5) 12/29/17 08:00 INR 1.08 (0.93-1.08) 12/29/17 08:00 APTT 32.1 Seconds (25.1-36.5) 12/29/17 08:00 - Constitutional Appears: No Acute Distress - Head Exam Head Exam: NORMOCEPHALIC - Eye Exam Eye Exam: Normal appearance - ENT Exam ENT Exam: Mucous Membranes Moist - Respiratory Exam Respiratory Exam: Decreased Breath Sounds, NORMAL BREATHING PATTERN - Cardiovascular Exam Cardiovascular Exam: +S1, +S2 - GI/Abdominal Exam GI & Abdominal Exam: Soft, Normal Bowel Sounds - Neurological Exam Neurological Exam: Alert, Awake Additional comments: confuse with sitter - Skin Skin Exam: Dry, Warm Assessment and Plan - Assessment and Plan (Free Text) Assessment: An 82 year old female who was brought to the ER by neighbor due to altered mental status,weakness and fall. Patient was very confused. History of coronary artery disease,CABG 2008, prosthetic aortic valve replacement, history of COPD , CHF, TIA,. CT scan of head upon admission negative for bleeding. Patient was last seen by family last July. She is being taken cared of by neighbor helping out with groceries. Admitted for altered mental status and failure to thrive.ECHO -normal LV size, LVEF 45-50%, mildly impaired LV function, s/p AVR bioprosthetic, no vegetation, mild AR, moderate to severe MR, Mild TR. Improved clinically,awake,alert,confuse with sitter. Plan: Cardiac status stable Controlled blood pressure and heart rate Nutritional support On oral Vantin per ID for urinary tract infection (E. Coli) Confuse with sitter Will recheck potassium level Continue current medications Continue current treatment Discharge planning Will follow up Plan and treatment discussed with Dr. Ellison
[2017-12-31] MEDS: Cefpodoxime (Vantin) 200 mg Tab PO SCH ×2 (09:17→21:20)
--- NOTE | 2017-12-31 14:49 | CP.PCM.PN ---
Subjective - Date & Time of Evaluation Date of Evaluation: 12/31/17 Time of Evaluation: 10:25 - Subjective Subjective: Afebrile, no diarrhea, not in distress. Objective - Vital Signs/Intake and Output Vital Signs (last 24 hours): Temp Pulse Resp BP Pulse Ox 98 F 73 19 172/93 H 95 12/31/17 06:00 12/31/17 06:00 12/31/17 06:00 12/31/17 06:00 12/31/17 06:00 - Medications Medications: Current Medications Acetaminophen (Tylenol 325mg Tab) 650 mg PO Q4H PRN PRN Reason: Pain, Mild (1-3) Alprazolam (Xanax) 0.25 mg PO TID ANA MARÍA PRN Reason: Protocol Last Admin: 12/31/17 07:34 Dose: 0.25 mg Amlodipine Besylate (Norvasc) 5 mg PO DAILY [facility] Last Admin: 12/30/17 10:05 Dose: 5 mg Aspirin (Aspirin Chewable) 81 mg PO DAILY [facility] Last Admin: 12/30/17 10:02 Dose: 81 mg Atorvastatin Calcium (Lipitor) 20 mg PO DIN [facility] Last Admin: 12/30/17 17:19 Dose: 20 mg Cefpodoxime Proxetil (Vantin) 200 mg PO Q12 ANA MARÍA PRN Reason: Protocol Last Admin: 12/30/17 10:02 Dose: 200 mg Cyanocobalamin (Vitamin B12 1000 Mcg/Ml Inj) 1,000 mcg IM DAILY [facility] Stop: 12/31/17 11:01 Last Admin: 12/30/17 10:04 Dose: 1,000 mcg Famotidine (Pepcid) 40 mg PO HS [facility] Last Admin: 12/30/17 22:42 Dose: 40 mg Folic Acid (Folic Acid) 1 mg PO DAILY [facility] Last Admin: 12/30/17 10:06 Dose: 1 mg Levothyroxine Sodium (Synthroid) 100 mcg PO 0600 [facility] Last Admin: 12/31/17 06:42 Dose: 100 mcg Risperidone (Risperdal Oral Soln) 0.5 mg PO BID ANA [facility]ÍA PRN Reason: Protocol Last Admin: 12/30/17 17:22 Dose: 0.5 mg Risperidone (Risperdal Oral Soln) 0.5 mg PO HS ANA [facility]ÍA PRN Reason: Protocol Last Admin: 12/30/17 22:42 Dose: 0.5 mg Ziprasidone (Geodon Inj) 10 mg IM BID PRN; Protocol PRN Reason: severe agitaiton/psychosis Last Admin: 12/30/17 21:22 Dose: 10 mg - Labs Labs: 12/26/17 07:00 12/29/17 06:30 PT 12.4 SECONDS (9.4-12.5) 12/29/17 08:00 INR 1.08 (0.93-1.08) 12/29/17 08:00 APTT 32.1 Seconds (25.1-36.5) 12/29/17 08:00 - Constitutional Appears: Chronically Ill - Respiratory Exam Respiratory Exam: Decreased Breath Sounds - Cardiovascular Exam Cardiovascular Exam: +S1, +S2 - GI/Abdominal Exam GI & Abdominal Exam: Soft. absent: Tenderness Assessment and Plan - Assessment and Plan (Free Text) Plan: Assessment UTI with E. coli COPD chronic CHF CVA CAD S/P CABG HTN Plan Continue Vantin day 8 to complete 7-10 days
--- NOTE | 2017-12-31 19:55 | PN ---
DATE: 12/31/2017 SUBJECTIVE: The patient was followed up today. The patient presented calmer, more coherent. The patient has episodes of confusion. The patient reported that she feels better. The patient was educated about medication what she is currently on. The patient is willing to participate in treatment plan. As per staff, the patient was able to point her daughter to be her power of civil litigation attorney and legal papers were submitted yesterday. From this automatic typewriter inspector's perspective, delirium is much better. Discussed with emergency medical service coordinator today. Geodon will be discontinued. Xanax and Risperdal should be continued. VITAL SIGNS: Seem to be stable. Temperature 98, pulse is 73, blood pressure 172/93, respiration 19, oxygen saturation is 95. MEDICATIONS: Reviewed. Tylenol, Xanax 0.25 mg three times a day as well as at the nighttime for insomnia, Norvasc, aspirin, Lipitor. The patient is on p.o. antibiotics, folic acid, Synthroid, Risperdal 0.5 mg twice a day and at the nighttime for psychosis. LABORATORY DATA: Reviewed. TSH is 34.3, vitamin B12 was less than 159. These two factors, hypothyroidism as well as vitamin B12 deficiency could mimic dementia. MENTAL STATUS EXAMINATION: The patient was more alert. The patient presented with no agitation or aggression. Wandering behavior is much better. The patient is less confused. The patient is compliant with the medications. Mood described "I feel okay." Affect was constricted, but reactive and mood congruent. Thought process was more goal directed, but the patient still has episodes of confusion and confabulation. The patient's thought content, the patient has episodes of confusion, but there is no agitation or aggression. Insight and judgment seems to be limited. Impulses are better controlled. IMPRESSION: Delirium on dementia. The patient has hypothyroidism, vitamin B12 deficiency, also urinary tract infection. All the above could contribute to the patient's presentation and this automatic typewriter inspector cannot exclude that. After correct treatment, the patient would present much better. PLAN: The patient pointed her daughter to be her power of civil litigation attorney. The patient has capacity to do so. Meanwhile, right now, the patient is to be continued on all of her psychotropic medication. If the patient will go to subacute rehab, the patient needs to be seen with psychiatrist within 72 hours of transfer. Meanwhile, the patient is not aggressive, not agitated, presented well. Thank you very much for letting me participate in the care of your patient. The patient deemed not to be in danger to self or others at present moment. Thank you very much. Ange Garvin MD
[2018-01-01] MEDS: Levothyroxine 100 MCG TAB PO SCH (05:27)
[2018-01-01 07:00] LABS: BLOOD UREA NITROGEN 31 mg/dL (7-21); CALCIUM 9.3 mg/dL (8.4-10.5); GFR AFRICAN-AMERICAN > 60; GFR NON-AFRICAN AMERICAN 60
--- NOTE | 2018-01-01 07:16 | CP.PCM.PN ---
Subjective - Date & Time of Evaluation Date of Evaluation: 01/01/18 Time of Evaluation: 06:25 - Subjective Subjective: Sitting on chair by the window with sitter,awake, alert, confuse, uncooperative Reason for consultation and follow up: Cardiac evaluation, history of COPD, history of CHF, history of aortic valve replacement, admitted for altered mental status and failure to thrive Seen and examined by me and Dr. Ellison Objective - Vital Signs/Intake and Output Vital Signs (last 24 hours): Temp Pulse Resp BP Pulse Ox 98.4 F 87 20 123/67 94 L 12/31/17 14:00 12/31/17 14:00 12/31/17 14:00 12/31/17 14:00 12/31/17 14:00 - Medications Medications: Current Medications Acetaminophen (Tylenol 325mg Tab) 650 mg PO Q4H PRN PRN Reason: Pain, Mild (1-3) Alprazolam (Xanax) 0.25 mg PO TID ANA MARÍA PRN Reason: Protocol Last Admin: 12/31/17 17:06 Dose: 0.25 mg Alprazolam (Xanax) 0.5 mg PO HS PRN; Protocol PRN Reason: Anxiety/insomnia Amlodipine Besylate (Norvasc) 5 mg PO DAILY [facility] Last Admin: 12/31/17 09:17 Dose: 5 mg Aspirin (Aspirin Chewable) 81 mg PO DAILY [facility] Last Admin: 12/31/17 09:18 Dose: 81 mg Atorvastatin Calcium (Lipitor) 20 mg PO DIN [facility] Last Admin: 12/31/17 17:06 Dose: 20 mg Cefpodoxime Proxetil (Vantin) 200 mg PO Q12 ANA MARÍA PRN Reason: Protocol Last Admin: 12/31/17 21:20 Dose: 200 mg Famotidine (Pepcid) 40 mg PO HS [facility] Last Admin: 12/31/17 21:20 Dose: 40 mg Folic Acid (Folic Acid) 1 mg PO DAILY [facility] Last Admin: 12/31/17 09:18 Dose: 1 mg Levothyroxine Sodium (Synthroid) 100 mcg PO 0600 [facility] Last Admin: 01/01/18 05:27 Dose: 100 mcg Risperidone (Risperdal Oral Soln) 0.5 mg PO BID [facility]A PRN Reason: Protocol Last Admin: 12/31/17 17:06 Dose: 0.5 mg Risperidone (Risperdal Oral Soln) 0.5 mg PO HS [facility]NA [facility]A PRN Reason: Protocol Last Admin: 12/31/17 21:31 Dose: 0.5 mg - Labs Labs: 12/26/17 07:00 01/01/18 05:30 PT 12.4 SECONDS (9.4-12.5) 12/29/17 08:00 INR 1.08 (0.93-1.08) 12/29/17 08:00 APTT 32.1 Seconds (25.1-36.5) 12/29/17 08:00 - Constitutional Appears: No Acute Distress - Head Exam Head Exam: NORMOCEPHALIC - Eye Exam Eye Exam: Normal appearance - ENT Exam ENT Exam: Mucous Membranes Moist - Respiratory Exam Respiratory Exam: Clear to Ausculation Bilateral, NORMAL BREATHING PATTERN - Cardiovascular Exam Cardiovascular Exam: +S1, +S2 - GI/Abdominal Exam GI & Abdominal Exam: Soft, Normal Bowel Sounds - Extremities Exam Extremities Exam: Normal Capillary Refill - Neurological Exam Neurological Exam: Alert, Awake Additional comments: confuse - Psychiatric Exam Additional comments: uncooperative - Skin Skin Exam: Dry, Warm Assessment and Plan - Assessment and Plan (Free Text) Assessment: An 82 year old female who was brought to the ER by neighbor due to altered mental status,weakness and fall. Patient was very confused. History of coronary artery disease,CABG 2008, prosthetic aortic valve replacement, history of COPD , CHF, TIA,. CT scan of head upon admission negative for bleeding. Patient was last seen by family last July. She is being taken cared of by neighbor helping out with groceries. Admitted for altered mental status and failure to thrive.ECHO -normal LV size, LVEF 45-50%, mildly impaired LV function, s/p AVR bioprosthetic, no vegetation, mild AR, moderate to severe MR, Mild TR. Improved clinically,awake,alert,confuse with sitter. Plan: Uncooperative, sitting on chair with sitter Calmly confuse Social service working on discharge placement Cardiac status stable Controlled blood pressure and heart rate Nutritional support On oral Vantin per ID for urinary tract infection (E. Coli) Continue current medications Continue current treatment Discharge planning Will follow up Plan and treatment discussed with Dr. Ellison
--- NOTE | 2018-01-01 09:14 | CP.PCM.DIS ---
<Arin Ott - Last Filed: 01/01/18 09:10> Provider - Provider Date of Admission: 12/23/17 13:04 Attending physician: Abrahan Rivera MD Consults: Psych Cardiology ID Neuro Time Spent in preparation of Discharge (in minutes): 35 Hospital Course - Lab Results Lab Results: Micro Results 12/23/17 23:50 Blood Blood Culture - Final NO GROWTH AFTER 5 DAYS 12/23/17 23:50 Blood Gram Stain - Final TEST NOT PERFORMED 12/23/17 23:20 Blood Blood Culture - Final NO GROWTH AFTER 5 DAYS Most Recent Lab Values WBC 7.8 10^3/ul (4.5-11.0) 12/26/17 07:00 RBC 5.16 10^6/uL (3.5-6.1) 12/26/17 07:00 Hgb 15.6 g/dL (12.0-16.0) 12/26/17 07:00 Hct 46.7 % (36.0-48.0) 12/26/17 07:00 MCV 90.5 fl (80.0-105.0) 12/26/17 07:00 MCH 30.2 pg (25.0-35.0) 12/26/17 07:00 MCHC 33.4 g/dl (31.0-37.0) 12/26/17 07:00 RDW 16.2 % (11.5-14.5) H 12/26/17 07:00 Plt Count 139 10^3/uL (120.0-450.0) 12/26/17 07:00 MPV 9.9 fl (7.0-11.0) 12/26/17 07:00 Gran % 70.6 % (50.0-68.0) H 12/26/17 07:00 Lymph % (Auto) 16.4 % (22.0-35.0) L 12/26/17 07:00 [place] % (Auto) 8.7 % (1.0-6.0) H 12/26/17 07:00 Eos % (Auto) 3.7 % (1.5-5.0) 12/26/17 07:00 Baso % (Auto) 0.6 % (0.0-3.0) 12/26/17 07:00 Gran # 5.52 (1.4-6.5) 12/26/17 07:00 Lymph # (Auto) 1.3 (1.2-3.4) 12/26/17 07:00 [place] # (Auto) 0.7 (0.1-0.6) H 12/26/17 07:00 Eos # (Auto) 0.3 (0.0-0.7) 12/26/17 07:00 Baso # (Auto) 0.05 K/mm3 (0.0-2.0) 12/26/17 07:00 PT 12.4 SECONDS (9.4-12.5) 12/29/17 08:00 INR 1.08 (0.93-1.08) 12/29/17 08:00 APTT 32.1 Seconds (25.1-36.5) 12/29/17 08:00 Sodium 142 mmol/L (132-148) 01/01/18 05:30 Potassium 4.1 mmol/L (3.6-5.0) 01/01/18 05:30 Chloride 103 mmol/L (98-107) 01/01/18 05:30 Carbon Dioxide 30 mmol/L (21-33) 01/01/18 05:30 Anion Gap 14 (10-20) 01/01/18 05:30 BUN 31 mg/dL (7-21) H 01/01/18 05:30 Creatinine 0.9 mg/dl (0.7-1.2) 01/01/18 05:30 Est GFR ( Amer) > 60 01/01/18 05:30 Est GFR (Non-Af Amer) 60 01/01/18 05:30 Random Glucose 91 mg/dL (70-110) 01/01/18 05:30 Hemoglobin A1c 6.1 % (4.2-6.5) 12/26/17 07:00 Calcium 9.3 mg/dL (8.4-10.5) 01/01/18 05:30 Phosphorus 3.7 mg/dL (2.5-4.5) 12/29/17 06:30 Magnesium 2.2 mg/dL (1.7-2.2) 12/29/17 06:30 Total Bilirubin 0.7 mg/dL (0.2-1.3) 12/26/17 07:00 AST 24 U/L (14-36) 12/26/17 07:00 ALT 32 U/L (7-56) 12/26/17 07:00 Alkaline Phosphatase 104 U/L (38-126) 12/26/17 07:00 Troponin I 0.05 ng/mL D 12/23/17 23:20 NT-Pro-B Natriuret Pep 3030 pg/mL (0-450) H 12/23/17 09:15 Total Protein 6.8 g/dL (5.8-8.3) 12/26/17 07:00 Albumin 3.9 g/dL (3.0-4.8) 12/26/17 07:00 Globulin 2.9 gm/dL 12/26/17 07:00 Albumin/Globulin Ratio 1.4 (1.1-1.8) 12/26/17 07:00 Triglycerides 91 mg/dL (35-160) 12/26/17 07:00 Cholesterol 228 mg/dL (130-200) H 12/26/17 07:00 LDL Cholesterol Direct 121 mg/dL (0-129) 12/26/17 07:00 HDL Cholesterol 74 mg/dL (29-60) H 12/26/17 07:00 Vitamin B12 < 159 pg/mL (239-931) L 12/25/17 11:20 Folate 10.7 ng/mL 12/25/17 11:20 Procalcitonin < 0.05 NG/ML (0.19-0.49) L 12/23/17 23:20 Free T4 0.23 ng/dL (0.78-2.19) L 12/25/17 08:00 Thyroxine (T4) 1.6 ug/dL (5.5-11.0) L 12/25/17 08:00 Free T3 pg/mL 1.87 pg/mL (2.77-5.27) L 12/25/17 08:00 TSH 3rd Generation 34.30 mIU/mL (0.46-4.68) H 12/29/17 06:30 Urine Color Yellow (YELLOW) 12/23/17 11:30 Urine Appearance Turbid (CLEAR) 12/23/17 11:30 Urine pH 6.5 (4.7-8.0) 12/23/17 11:30 Ur Specific Amelia 1.010 (1.005-1.035) 12/23/17 11:30 Urine Protein Trace mg/dL (<30 mg/dL) H 12/23/17 11:30 Urine Glucose (UA) Negative mg/dL (NEGATIVE) 12/23/17 11:30 Urine Ketones Negative mg/dL (NEGATIVE) 12/23/17 11:30 Urine Blood Trace-intact (NEGATIVE) H 12/23/17 11:30 Urine Nitrate Positive (NEGATIVE) H 12/23/17 11:30 Urine Bilirubin Negative (NEGATIVE) 12/23/17 11:30 Urine Urobilinogen 0.2 E.U./dL (<1 E.U./dL) 12/23/17 11:30 Ur Leukocyte Esterase Moderate Corey/uL (NEGATIVE) H 12/23/17 11:30 Urine RBC 0 - 2 /hpf (0-2) 12/23/17 11:30 Urine WBC 10 - 15 /hpf (0-6) 12/23/17 11:30 Ur Epithelial Cells 3 - 4 /hpf (0-5) 12/23/17 11:30 Urine Bacteria Many (NEG) 12/23/17 11:30 Salicylates < 1 mg/dL (2.0-20.0) L 12/23/17 09:15 Urine Opiates Screen Negative (NEGATIVE) 12/23/17 11:30 Urine Methadone Screen Negative (NEGATIVE) 12/23/17 11:30 Acetaminophen < 10.0 ug/ml (10.0-20.0) L 12/23/17 09:15 Ur Barbiturates Screen Negative (NEGATIVE) 12/23/17 11:30 Ur Phencyclidine Scrn Negative (NEGATIVE) 12/23/17 11:30 Ur Amphetamines Screen Negative (NEGATIVE) 12/23/17 11:30 U Benzodiazepines Scrn Negative (NEGATIVE) 12/23/17 11:30 U Oth Cocaine Metabols Negative (NEGATIVE) 12/23/17 11:30 U Cannabinoids Screen Negative (NEGATIVE) 12/23/17 11:30 - Hospital Course Hospital Course: This is an 82yo female with past medical history of CAD, prosthetic aortic valve , COPD, CHF, TIA who was admitted for altered mental status thought to be multifactorial. Patient was living alone at the time and was brought in by neighbor. She was not feeding or taking care of herself. She did not see and dovtor in many years and was not taking medication. Patient was found to have E.coli positive UTI and was subsequently treated with antibiotics by ID. She also had vitamin B12 deficiency and hypothyroidism. She was placed on vitamin B12 and synthroid. Patient was also found to have delirium with underlying dementia. Head CT was negative. She was evaluated by neurology as well as psychiatry. Patient's agitation improved with respirodone and Xanax. Patient also has history of prosthetic heart valve. Echo was done and reviewed. Patient found to be in a.fib. Cardiologly evaluated patient and recommended Norvasc, Lipitor and ASA. Patient lacks judgement, insight and capacity to make decisions for herself. Daughter is now power of commonwealth attorney and patient will be placed in assisted care. - Date & Time of H&P Date of H&P: 12/24/17 Time of H&P: 10:00 Discharge Exam - Head Exam Head Exam: NORMOCEPHALIC - Eye Exam Eye Exam: Normal appearance, PERRL Pupil Exam: NORMAL ACCOMODATION - Respiratory Exam Respiratory Exam: Clear to PA & Lateral, NORMAL BREATHING PATTERN, UNREMARKABLE. absent: Rhonchi, Wheezes - Cardiovascular Exam Cardiovascular Exam: REGULAR RHYTHM, +S1, +S2. absent: Gallop, Rubs, Systolic Murmur - GI/Abdominal Exam GI & Abdominal Exam: Normal Bowel Sounds, Soft, Unremarkable. absent: Rebound, Rigid, Tenderness - Extremities Exam Extremities exam: normal inspection - Neurological Exam Neurological exam: Alert, CN II-XII Intact - Psychiatric Exam Psychiatric exam: Normal Affect, Normal Mood - Skin Skin Exam: Dry, Warm Discharge Plan - Follow Up Plan Condition: STABLE Disposition: NURSING FACILITY MEDICAID CERT <Abrahan Rivera - Last Filed: 01/01/18 23:28> Provider - Provider Date of Admission: 12/23/17 13:04 Attending physician: Abrahan Rivera MD Hospital Course - Lab Results Lab Results: Micro Results 12/23/17 23:50 Blood Blood Culture - Final NO GROWTH AFTER 5 DAYS 12/23/17 23:50 Blood Gram Stain - Final TEST NOT PERFORMED 12/23/17 23:20 Blood Blood Culture - Final NO GROWTH AFTER 5 DAYS Most Recent Lab Values WBC 7.8 10^3/ul (4.5-11.0) 12/26/17 07:00 RBC 5.16 10^6/uL (3.5-6.1) 12/26/17 07:00 Hgb 15.6 g/dL (12.0-16.0) 12/26/17 07:00 Hct 46.7 % (36.0-48.0) 12/26/17 07:00 MCV 90.5 fl (80.0-105.0) 12/26/17 07:00 MCH 30.2 pg (25.0-35.0) 12/26/17 07:00 MCHC 33.4 g/dl (31.0-37.0) 12/26/17 07:00 RDW 16.2 % (11.5-14.5) H 12/26/17 07:00 Plt Count 139 10^3/uL (120.0-450.0) 12/26/17 07:00 MPV 9.9 fl (7.0-11.0) 12/26/17 07:00 Gran % 70.6 % (50.0-68.0) H 12/26/17 07:00 Lymph % (Auto) 16.4 % (22.0-35.0) L 12/26/17 07:00 [place] % (Auto) 8.7 % (1.0-6.0) H 12/26/17 07:00 Eos % (Auto) 3.7 % (1.5-5.0) 12/26/17 07:00 Baso % (Auto) 0.6 % (0.0-3.0) 12/26/17 07:00 Gran # 5.52 (1.4-6.5) 12/26/17 07:00 Lymph # (Auto) 1.3 (1.2-3.4) 12/26/17 07:00 [place] # (Auto) 0.7 (0.1-0.6) H 12/26/17 07:00 Eos # (Auto) 0.3 (0.0-0.7) 12/26/17 07:00 Baso # (Auto) 0.05 K/mm3 (0.0-2.0) 12/26/17 07:00 PT 12.4 SECONDS (9.4-12.5) 12/29/17 08:00 INR 1.08 (0.93-1.08) 12/29/17 08:00 APTT 32.1 Seconds (25.1-36.5) 12/29/17 08:00 Sodium 142 mmol/L (132-148) 01/01/18 05:30 Potassium 4.1 mmol/L (3.6-5.0) 01/01/18 05:30 Chloride 103 mmol/L (98-107) 01/01/18 05:30 Carbon Dioxide 30 mmol/L (21-33) 01/01/18 05:30 Anion Gap 14 (10-20) 01/01/18 05:30 BUN 31 mg/dL (7-21) H 01/01/18 05:30 Creatinine 0.9 mg/dl (0.7-1.2) 01/01/18 05:30 Est GFR ( Amer) > 60 01/01/18 05:30 Est GFR (Non-Af Amer) 60 01/01/18 05:30 Random Glucose 91 mg/dL (70-110) 01/01/18 05:30 Hemoglobin A1c 6.1 % (4.2-6.5) 12/26/17 07:00 Calcium 9.3 mg/dL (8.4-10.5) 01/01/18 05:30 Phosphorus 3.7 mg/dL (2.5-4.5) 12/29/17 06:30 Magnesium 2.2 mg/dL (1.7-2.2) 12/29/17 06:30 Total Bilirubin 0.7 mg/dL (0.2-1.3) 12/26/17 07:00 AST 24 U/L (14-36) 12/26/17 07:00 ALT 32 U/L (7-56) 12/26/17 07:00 Alkaline Phosphatase 104 U/L (38-126) 12/26/17 07:00 Troponin I 0.05 ng/mL D 12/23/17 23:20 NT-Pro-B Natriuret Pep 3030 pg/mL (0-450) H 12/23/17 09:15 Total Protein 6.8 g/dL (5.8-8.3) 12/26/17 07:00 Albumin 3.9 g/dL (3.0-4.8) 12/26/17 07:00 Globulin 2.9 gm/dL 12/26/17 07:00 Albumin/Globulin Ratio 1.4 (1.1-1.8) 12/26/17 07:00 Triglycerides 91 mg/dL (35-160) 12/26/17 07:00 Cholesterol 228 mg/dL (130-200) H 12/26/17 07:00 LDL Cholesterol Direct 121 mg/dL (0-129) 12/26/17 07:00 HDL Cholesterol 74 mg/dL (29-60) H 12/26/17 07:00 Vitamin B12 < 159 pg/mL (239-931) L 12/25/17 11:20 Folate 10.7 ng/mL 12/25/17 11:20 Procalcitonin < 0.05 NG/ML (0.19-0.49) L 12/23/17 23:20 Free T4 0.23 ng/dL (0.78-2.19) L 12/25/17 08:00 Thyroxine (T4) 1.6 ug/dL (5.5-11.0) L 12/25/17 08:00 Free T3 pg/mL 1.87 pg/mL (2.77-5.27) L 12/25/17 08:00 TSH 3rd Generation 34.30 mIU/mL (0.46-4.68) H 12/29/17 06:30 Urine Color Yellow (YELLOW) 12/23/17 11:30 Urine Appearance Turbid (CLEAR) 12/23/17 11:30 Urine pH 6.5 (4.7-8.0) 12/23/17 11:30 Ur Specific Amelia 1.010 (1.005-1.035) 12/23/17 11:30 Urine Protein Trace mg/dL (<30 mg/dL) H 12/23/17 11:30 Urine Glucose (UA) Negative mg/dL (NEGATIVE) 12/23/17 11:30 Urine Ketones Negative mg/dL (NEGATIVE) 12/23/17 11:30 Urine Blood Trace-intact (NEGATIVE) H 12/23/17 11:30 Urine Nitrate Positive (NEGATIVE) H 12/23/17 11:30 Urine Bilirubin Negative (NEGATIVE) 12/23/17 11:30 Urine Urobilinogen 0.2 E.U./dL (<1 E.U./dL) 12/23/17 11:30 Ur Leukocyte Esterase Moderate Corey/uL (NEGATIVE) H 12/23/17 11:30 Urine RBC 0 - 2 /hpf (0-2) 12/23/17 11:30 Urine WBC 10 - 15 /hpf (0-6) 12/23/17 11:30 Ur Epithelial Cells 3 - 4 /hpf (0-5) 12/23/17 11:30 Urine Bacteria Many (NEG) 12/23/17 11:30 Salicylates < 1 mg/dL (2.0-20.0) L 12/23/17 09:15 Urine Opiates Screen Negative (NEGATIVE) 12/23/17 11:30 Urine Methadone Screen Negative (NEGATIVE) 12/23/17 11:30 Acetaminophen < 10.0 ug/ml (10.0-20.0) L 12/23/17 09:15 Ur Barbiturates Screen Negative (NEGATIVE) 12/23/17 11:30 Ur Phencyclidine Scrn Negative (NEGATIVE) 12/23/17 11:30 Ur Amphetamines Screen Negative (NEGATIVE) 12/23/17 11:30 U Benzodiazepines Scrn Negative (NEGATIVE) 12/23/17 11:30 U Oth Cocaine Metabols Negative (NEGATIVE) 12/23/17 11:30 U Cannabinoids Screen Negative (NEGATIVE) 12/23/17 11:30 - Hospital Course Hospital Course: Pt seen and examined. I have reviewed the note of the director of medical education and agree with it. I have discussed the assessment and plan with the resident. I have reviewed the patient's labs and medications. Pt [facility] go [facility]. Eating well. No pain. Daughter is POA.
--- NOTE | 2018-01-01 12:53 | CP.PCM.PN ---
Subjective - Date & Time of Evaluation Date of Evaluation: 12/31/17 Time of Evaluation: 11:25 - Subjective Subjective: No fevers, not in distress. Objective - Vital Signs/Intake and Output Vital Signs (last 24 hours): Temp Pulse Resp BP Pulse Ox 98.4 F 87 20 123/67 94 L 12/31/17 14:00 12/31/17 14:00 12/31/17 14:00 12/31/17 14:00 12/31/17 14:00 Intake and Output: 12/31/17 01/01/18 18:59 06:59 Intake Total 1200 Output Total 650 Balance 550 - Medications Medications: Current Medications Acetaminophen (Tylenol 325mg Tab) 650 mg PO Q4H PRN PRN Reason: Pain, Mild (1-3) Alprazolam (Xanax) 0.25 mg PO TID ANA MARÍA PRN Reason: Protocol Last Admin: 12/31/17 17:06 Dose: 0.25 mg Alprazolam (Xanax) 0.5 mg PO HS PRN; Protocol PRN Reason: Anxiety/insomnia Amlodipine Besylate (Norvasc) 5 mg PO DAILY [facility] Last Admin: 12/31/17 09:17 Dose: 5 mg Aspirin (Aspirin Chewable) 81 mg PO DAILY ANA MARÍA Last Admin: 12/31/17 09:18 Dose: 81 mg Atorvastatin Calcium (Lipitor) 20 mg PO DIN [facility] Last Admin: 12/31/17 17:06 Dose: 20 mg Cefpodoxime Proxetil (Vantin) 200 mg PO Q12 ANA MARÍA PRN Reason: Protocol Last Admin: 12/31/17 21:20 Dose: 200 mg Famotidine (Pepcid) 40 mg PO HS [facility] Last Admin: 12/31/17 21:20 Dose: 40 mg Folic Acid (Folic Acid) 1 mg PO DAILY [facility] Last Admin: 12/31/17 09:18 Dose: 1 mg Levothyroxine Sodium (Synthroid) 100 mcg PO 0600 ANA MARÍA Last Admin: 12/31/17 06:42 Dose: 100 mcg Risperidone (Risperdal Oral Soln) 0.5 mg PO BID ANA MARÍA PRN Reason: Protocol Last Admin: 12/31/17 17:06 Dose: 0.5 mg Risperidone (Risperdal Oral Soln) 0.5 mg PO HS ANA MARÍA PRN Reason: Protocol Last Admin: 12/31/17 21:31 Dose: 0.5 mg - Labs Labs: 12/26/17 07:00 12/29/17 06:30 PT 12.4 SECONDS (9.4-12.5) 12/29/17 08:00 INR 1.08 (0.93-1.08) 12/29/17 08:00 APTT 32.1 Seconds (25.1-36.5) 12/29/17 08:00 - Constitutional Appears: Chronically Ill - Head Exam Head Exam: NORMAL INSPECTION - Respiratory Exam Respiratory Exam: Decreased Breath Sounds - Cardiovascular Exam Cardiovascular Exam: +S1, +S2 - GI/Abdominal Exam GI & Abdominal Exam: Soft. absent: Tenderness Assessment and Plan - Assessment and Plan (Free Text) Plan: Assessment UTI with E. coli COPD chronic CHF CVA CAD S/P CABG HTN Plan Continue Vantin day 9 to complete 7-10 days
[2018-01-02] MEDS: Levothyroxine 100 MCG TAB PO SCH (05:56)
--- NOTE | 2018-01-02 12:55 | CP.PCM.PN ---
Subjective - Date & Time of Evaluation Date of Evaluation: 01/01/18 Time of Evaluation: 12:15 - Subjective Subjective: Still with periods of agitation but comfortable on a chair, no fevers. Objective - Vital Signs/Intake and Output Vital Signs (last 24 hours): Temp Pulse Resp BP Pulse Ox 97.5 F L 111 H 18 156/81 H 91 L 01/01/18 22:00 01/01/18 22:00 01/01/18 22:00 01/01/18 22:00 01/01/18 22:00 - Medications Medications: Current Medications Acetaminophen (Tylenol 325mg Tab) 650 mg PO Q4H PRN PRN Reason: Pain, Mild (1-3) Alprazolam (Xanax) 0.25 mg PO TID ANA MARÍA PRN Reason: Protocol Last Admin: 01/01/18 18:19 Dose: 0.25 mg Alprazolam (Xanax) 0.5 mg PO HS PRN; Protocol PRN Reason: Anxiety/insomnia Amlodipine Besylate (Norvasc) 5 mg PO DAILY [facility] Last Admin: 01/01/18 10:05 Dose: 5 mg Aspirin (Aspirin Chewable) 81 mg PO DAILY [facility] Last Admin: 01/01/18 10:04 Dose: 81 mg Atorvastatin Calcium (Lipitor) 20 mg PO DIN [facility] Last Admin: 01/01/18 18:19 Dose: 20 mg Famotidine (Pepcid) 40 mg PO HS [facility] Last Admin: 12/31/17 21:20 Dose: 40 mg Folic Acid (Folic Acid) 1 mg PO DAILY [facility]A Last Admin: 01/01/18 10:04 Dose: 1 mg Levothyroxine Sodium (Synthroid) 100 mcg PO 0600 [facility] Last Admin: 01/01/18 05:27 Dose: 100 mcg Risperidone (Risperdal Oral Soln) 0.5 mg PO BID ANA MARÍA PRN Reason: Protocol Last Admin: 01/01/18 18:20 Dose: 0.5 mg Risperidone (Risperdal Oral Soln) 0.5 mg PO HS ANA MARÍA PRN Reason: Protocol Last Admin: 12/31/17 21:31 Dose: 0.5 mg Ziprasidone (Geodon Inj) 10 mg IM BID PRN; Protocol PRN Reason: Agitation Last Admin: 01/01/18 20:51 Dose: 10 mg - Labs Labs: 12/26/17 07:00 07/13/18 05:30 PT 12.4 SECONDS (9.4-12.5) 12/29/17 08:00 INR 1.08 (0.93-1.08) 12/29/17 08:00 APTT 32.1 Seconds (25.1-36.5) 12/29/17 08:00 - Constitutional Appears: Non-toxic, Chronically Ill - Head Exam Head Exam: NORMAL INSPECTION - Respiratory Exam Respiratory Exam: Decreased Breath Sounds - Cardiovascular Exam Cardiovascular Exam: +S1, +S2 - GI/Abdominal Exam GI & Abdominal Exam: Soft. absent: Tenderness Assessment and Plan - Assessment and Plan (Free Text) Plan: Assessment UTI with E. coli COPD chronic CHF CVA CAD S/P CABG HTN Plan Continue Vantin day 10 to complete 7-10 days - can d/c after today
--- NOTE | 2018-01-02 14:05 | PN ---
DATE: 01/02/2018 SUBJECTIVE: The patient is 82 years old, seen and examined, lying in the bed, seems to be sleepy, but is arousable, confused, disoriented. As per the nurse, she refused to take her morning medication. She did eat well though. OBJECTIVE: VITAL SIGNS: She is afebrile, pulse 72, respirations 18, and blood pressure 127/74. LUNGS: Bilateral fair airflow. No rhonchi or crackle. HEART: S1, S2 audible. ABDOMEN: Soft, nontender. No rebound, no guarding. NEUROLOGICAL: She is sleepy, but arousable. LABORATORY DATA: There is no new lab available; however, her yesterday's sodium 142, potassium 4.1, chloride 103, CO2 of 30. BUN 31, creatinine 0.9. Blood sugar of 91. On 12/23/2017, she was found to have E. coli UTI. Blood cultures are negative. ASSESSMENT: 1. Altered mental status. 2. Dementia. 3. Escherichia coli urinary tract infection. 4. History of hypertension. 5. History of prosthetic heart valve. 6. Chronic atrial fibrillation. 7. Hyperlipidemia. PLAN: The patient is awaiting placement. She is currently on aspirin 81 mg daily, folic acid 1 mg daily. She is on Geodon as needed. She is on statin, amlodipine 5 mg daily. She is on Risperdal. We will continue current medication and supportive care. The patient is on one-to-one for now. Viky Orellana MD
[2018-01-03] MEDS: Levothyroxine 100 MCG TAB PO SCH (05:30)
--- NOTE | 2018-01-03 16:59 | CP.PCM.PN ---
Subjective - Date & Time of Evaluation Date of Evaluation: 01/03/18 Time of Evaluation: 11:55 - Subjective Subjective: Comfortable, no fevers. Objective - Vital Signs/Intake and Output Vital Signs (last 24 hours): Temp Pulse Resp BP Pulse Ox 97.9 F 80 16 144/86 97 01/02/18 21:56 01/02/18 21:56 01/02/18 21:56 01/02/18 21:56 01/02/18 21:56 - Medications Medications: Current Medications Acetaminophen (Tylenol 325mg Tab) 650 mg PO Q4H PRN PRN Reason: Pain, Mild (1-3) Alprazolam (Xanax) 0.25 mg PO TID ANA MARÍA PRN Reason: Protocol Last Admin: 01/02/18 17:14 Dose: 0.25 mg Alprazolam (Xanax) 0.5 mg PO HS PRN; Protocol PRN Reason: Anxiety/insomnia Last Admin: 01/02/18 21:08 Dose: 0.5 mg Amlodipine Besylate (Norvasc) 5 mg PO DAILY [facility] Last Admin: 01/02/18 12:40 Dose: Not Given Aspirin (Aspirin Chewable) 81 mg PO DAILY [facility]A Last Admin: 01/02/18 12:40 Dose: Not Given Atorvastatin Calcium (Lipitor) 20 mg PO DIN [facility] Last Admin: 01/02/18 17:13 Dose: 20 mg Famotidine (Pepcid) 40 mg PO HS [facility] Last Admin: 01/02/18 21:08 Dose: 40 mg Folic Acid (Folic Acid) 1 mg PO DAILY [facility] Last Admin: 01/02/18 12:40 Dose: Not Given Levothyroxine Sodium (Synthroid) 100 mcg PO 0600 [facility]A Last Admin: 01/03/18 05:30 Dose: 100 mcg Risperidone (Risperdal Oral Soln) 0.5 mg PO BID ANA MARÍA PRN Reason: Protocol Last Admin: 01/02/18 17:13 Dose: 0.5 mg Risperidone (Risperdal Oral Soln) 0.5 mg PO HS AN AMARÍA PRN Reason: Protocol Last Admin: 01/02/18 21:08 Dose: 0.5 mg Ziprasidone (Geodon Inj) 10 mg IM BID PRN; Protocol PRN Reason: Agitation Last Admin: 01/01/18 20:51 Dose: 10 mg - Labs Labs: 12/26/17 07:00 01/01/18 05:30 PT 12.4 SECONDS (9.4-12.5) 12/29/17 08:00 INR 1.08 (0.93-1.08) 12/29/17 08:00 APTT 32.1 Seconds (25.1-36.5) 12/29/17 08:00 - Constitutional Appears: Chronically Ill - Head Exam Head Exam: NORMAL INSPECTION - Respiratory Exam Respiratory Exam: Decreased Breath Sounds - Cardiovascular Exam Cardiovascular Exam: +S1, +S2 - GI/Abdominal Exam GI & Abdominal Exam: Soft. absent: Tenderness Assessment and Plan - Assessment and Plan (Free Text) Plan: Assessment S/P UTI with E. coli COPD chronic CHF CVA CAD S/P CABG HTN Plan S/P course of Vantin - will continue to monitor clinically since she is at risk for nosocomial infections
--- NOTE | 2018-01-03 21:34 | PN ---
DATE: 01/03/2018 SUBJECTIVE: She is comfortable in chair, no acute distress, alert, oriented. She is asking to be discharged home. She wants to go home. REVIEW OF SYSTEMS: As per HPI. Rest of 12-point review of systems reviewed negative. PHYSICAL EXAMINATION: GENERAL: Comfortable in chair, in no acute distress. VITAL SIGNS: Afebrile. Temperature 98.7, heart rate 80 per minute, respiratory rate 18 per minute, blood pressure 120/70. HEENT: Pallor positive. LUNGS: Air entry present and equal bilaterally. No added sounds. CARDIOVASCULAR: S1, S2 normal. No murmur. No gallop. ABDOMEN: Soft, nontender. No hepatosplenomegaly. NEUROLOGICAL: Alert, oriented. No focal sensory or motor deficits. SKIN: No petechiae. No rash. LABORATORY DATA: Labs showed E. coli UTI. Blood culture negative. Sodium 142, potassium 4.1, creatinine 0.9. White count 7.8, hemoglobin 15.6, hematocrit 46.7, platelet 139. ASSESSMENT: 1. Altered mental status. 2. B12 deficiency. 3. Escherichia coli urinary tract infection. 4. Prosthetic heart valve. 6. Atrial fibrillation. PLAN: She is alert, oriented. Urinary tract infection treated. She received B12 injections, IM, for 7 days. She is off antibiotics. Awaiting placement. Mental status, markedly improved, currently normal. Vickie Cherry MD
[2018-01-04] MEDS: Levothyroxine 100 MCG TAB PO SCH (05:53)
--- NOTE | 2018-01-04 07:09 | CP.PCM.PN ---
Subjective - Date & Time of Evaluation Date of Evaluation: 01/04/18 Time of Evaluation: 06:30 - Subjective Subjective: Sitting on chair by the window with sitter,awake, alert, confuse, uncooperative Reason for consultation and follow up: Cardiac evaluation, history of COPD, history of CHF, history of aortic valve replacement, admitted for altered mental status and failure to thrive Seen and examined by me and Dr. Ellison Objective - Vital Signs/Intake and Output Vital Signs (last 24 hours): Temp Pulse Resp BP Pulse Ox 97.9 F 75 18 111/60 93 L 01/03/18 14:00 01/03/18 14:00 01/03/18 14:00 01/03/18 14:00 01/03/18 14:00 - Medications Medications: Current Medications Acetaminophen (Tylenol 325mg Tab) 650 mg PO Q4H PRN PRN Reason: Pain, Mild (1-3) Alprazolam (Xanax) 0.25 mg PO TID [facility]A PRN Reason: Protocol Last Admin: 01/03/18 17:18 Dose: 0.25 mg Alprazolam (Xanax) 0.5 mg PO HS PRN; Protocol PRN Reason: Anxiety/insomnia Last Admin: 01/03/18 21:13 Dose: 0.5 mg Amlodipine Besylate (Norvasc) 5 mg PO DAILY [facility] Last Admin: 01/03/18 11:17 Dose: 5 mg Aspirin (Aspirin Chewable) 81 mg PO DAILY [facility] Last Admin: 01/03/18 11:17 Dose: 81 mg Atorvastatin Calcium (Lipitor) 20 mg PO DIN [facility] Last Admin: 01/03/18 17:17 Dose: 20 mg Famotidine (Pepcid) 40 mg PO HS [facility] Last Admin: 01/03/18 21:10 Dose: 40 mg Folic Acid (Folic Acid) 1 mg PO DAILY [facility] Last Admin: 01/03/18 11:17 Dose: 1 mg Levothyroxine Sodium (Synthroid) 100 mcg PO 0600 [facility] Last Admin: 01/04/18 05:53 Dose: 100 mcg Risperidone (Risperdal Tab) 0.5 mg PO BID [facility] PRN Reason: Protocol Last Admin: 01/03/18 17:18 Dose: 0.5 mg Risperidone (Risperdal Tab) 0.5 mg PO HS [facility] PRN Reason: Protocol Last Admin: 01/03/18 21:14 Dose: 0.5 mg Ziprasidone (Geodon Inj) 10 mg IM BID PRN; Protocol PRN Reason: Agitation Last Admin: 01/01/18 20:51 Dose: 10 mg - Labs Labs: 12/26/17 07:00 01/01/18 05:30 PT 12.4 SECONDS (9.4-12.5) 12/29/17 08:00 INR 1.08 (0.93-1.08) 12/29/17 08:00 APTT 32.1 Seconds (25.1-36.5) 12/29/17 08:00 - Constitutional Appears: No Acute Distress - Head Exam Head Exam: NORMOCEPHALIC - Eye Exam Eye Exam: Normal appearance - ENT Exam ENT Exam: Mucous Membranes Moist - Respiratory Exam Respiratory Exam: Clear to Ausculation Bilateral, NORMAL BREATHING PATTERN - Cardiovascular Exam Cardiovascular Exam: +S1, +S2 - GI/Abdominal Exam GI & Abdominal Exam: Soft, Normal Bowel Sounds - Extremities Exam Extremities Exam: Normal Capillary Refill - Neurological Exam Neurological Exam: Alert, Awake Additional comments: confuse,tried to get out of bed - Psychiatric Exam Psychiatric exam: Anxious - Skin Skin Exam: Dry, Warm Assessment and Plan - Assessment and Plan (Free Text) Assessment: An 82 year old female who was brought to the ER by neighbor due to altered mental status,weakness and fall. Patient was very confused. History of coronary artery disease,CABG 2008, prosthetic aortic valve replacement, history of COPD , CHF, TIA,. CT scan of head upon admission negative for bleeding. Patient was last seen by family last July. She is being taken cared of by neighbor helping out with groceries. Admitted for altered mental status and failure to thrive.ECHO -normal LV size, LVEF 45-50%, mildly impaired LV function, s/p AVR bioprosthetic, no vegetation, mild AR, moderate to severe MR, Mild TR. Improved clinically,awake,alert,confuse with sitter.Awaiting discharge placement. patient lives alone. Plan: Awaiting acceptance of placement from facility Trying to get out of bed, with sitter Awake but confuse Social service working on discharge placement Cardiac status stable Controlled blood pressure and heart rate Nutritional support Completed antibiotic therapy for urinary tract infection (E. Coli) Continue current medications Continue current treatment Discharge planning Will follow up Plan and treatment discussed with Dr. Ellison
--- NOTE | 2018-01-04 09:42 | CP.PCM.PN ---
<Arin Ott - Last Filed: 01/04/18 10:25> Subjective - Date & Time of Evaluation Date of Evaluation: 01/04/18 Time of Evaluation: 07:00 - Subjective Subjective: Medicine Progress Note for Delilah Jiang PGY3 Patient seen and examined at bedside. There were no acute overnight events as per nursing staff. Patient is resting comfortably in bed. She denies having any pain, chest pain, shortness of breath, nausea/vomiting/diarrhea, fever/chills, dysuria or hematuria, numbness/tingling, dysuria or hematuria. Objective - Vital Signs/Intake and Output Vital Signs (last 24 hours): Temp Pulse Resp BP Pulse Ox 97.9 F 75 18 111/60 93 L 01/03/18 14:00 01/03/18 14:00 01/03/18 14:00 01/03/18 14:00 01/03/18 14:00 - Medications Medications: Current Medications Acetaminophen (Tylenol 325mg Tab) 650 mg PO Q4H PRN PRN Reason: Pain, Mild (1-3) Alprazolam (Xanax) 0.25 mg PO TID [facility] PRN Reason: Protocol Last Admin: 01/03/18 17:18 Dose: 0.25 mg Alprazolam (Xanax) 0.5 mg PO HS PRN; Protocol PRN Reason: Anxiety/insomnia Last Admin: 01/03/18 21:13 Dose: 0.5 mg Amlodipine Besylate (Norvasc) 5 mg PO DAILY [facility] Last Admin: 01/03/18 11:17 Dose: 5 mg Aspirin (Aspirin Chewable) 81 mg PO DAILY [facility] Last Admin: 01/03/18 11:17 Dose: 81 mg Atorvastatin Calcium (Lipitor) 20 mg PO DIN [facility] Last Admin: 01/03/18 17:17 Dose: 20 mg Famotidine (Pepcid) 40 mg PO HS [facility] Last Admin: 01/03/18 21:10 Dose: 40 mg Folic Acid (Folic Acid) 1 mg PO DAILY [facility] Last Admin: 01/03/18 11:17 Dose: 1 mg Levothyroxine Sodium (Synthroid) 100 mcg PO 0600 [facility] Last Admin: 01/04/18 05:53 Dose: 100 mcg Risperidone (Risperdal Tab) 0.5 mg PO BID [facility] PRN Reason: Protocol Last Admin: 01/03/18 17:18 Dose: 0.5 mg Risperidone (Risperdal Tab) 0.5 mg PO HS [facility] PRN Reason: Protocol Last Admin: 01/03/18 21:14 Dose: 0.5 mg - Labs Labs: 12/26/17 07:00 01/01/18 05:30 PT 12.4 SECONDS (9.4-12.5) 12/29/17 08:00 INR 1.08 (0.93-1.08) 12/29/17 08:00 APTT 32.1 Seconds (25.1-36.5) 12/29/17 08:00 - Constitutional Appears: No Acute Distress - Head Exam Head Exam: ATRAUMATIC, NORMAL INSPECTION, NORMOCEPHALIC - Eye Exam Eye Exam: Normal appearance, PERRL Pupil Exam: NORMAL ACCOMODATION, PERRL - ENT Exam ENT Exam: Mucous Membranes Moist - Neck Exam Neck Exam: Full ROM - Respiratory Exam Respiratory Exam: Clear to Ausculation Bilateral, NORMAL BREATHING PATTERN. absent: Rales, Rhonchi, Wheezes - Cardiovascular Exam Cardiovascular Exam: REGULAR RHYTHM, +S1, +S2. absent: Gallop, Rubs, Murmur - GI/Abdominal Exam GI & Abdominal Exam: Soft, Normal Bowel Sounds. absent: Rigid, Tenderness, Mass , Rebound - Extremities Exam Extremities Exam: Normal Inspection. absent: Calf Tenderness, Pedal Edema - Neurological Exam Neurological Exam: Alert, Awake, CN II-XII Intact, Normal Gait. absent: Oriented x3 - Psychiatric Exam Psychiatric exam: Normal Affect, Normal Mood. absent: Agitated - Skin Skin Exam: Dry, Intact, Warm Assessment and Plan - Assessment and Plan (Free Text) Assessment: This is an 82yo female with past medical history of CAD, prosthetic aortic valve , COPD, CHF, TIA who was admitted for 1. AMS - secondary to delirium with underlying dementia - can also be exacerbated with UTI, vitamin B12 deficiency and hypothryoidiam - CT head negative 2. UTI (resolved) - s/p antibiotics tx fo4 1 week - Urine culture + for E.coli 3. Vitamin B12 deficiency 4. Hypothyroidism 5. Paroxysmal a.fib - rate controlled 6. CAD 7. Prosthetic aortic valve 8. CHF (last echo 2012) - CXR negative Plan: Patient had one episode of agitation on Thursday and had one dose of Geodon. She had not had any doses since then. She is off of 1:1 sitter. She has been doing well on the Risperidone and Xanax. Her daughter is power of merchandise examiner. She is awaiting fdc placement. We will continue her medications such as Synthroid , Folic acid, ASA, Norvasc and Lipitor. Continue GI and DVT prophylaxis. Patient is at risk for hospital acquired infections at this time. Case seen, discussed and reviewed with Dr. Rivera. Delilah Ott PGY3 <Abrahan Rivera - Last Filed: 01/04/18 19:16> Objective - Vital Signs/Intake and Output Vital Signs (last 24 hours): Temp Pulse Resp BP Pulse Ox 98.8 F 75 18 135/65 94 L 01/04/18 18:45 01/04/18 18:45 01/04/18 18:45 01/04/18 18:45 01/04/18 18:45 - Medications Medications: Current Medications Acetaminophen (Tylenol 325mg Tab) 650 mg PO Q4H PRN PRN Reason: Pain, Mild (1-3) Alprazolam (Xanax) 0.25 mg PO TID A[facility]A PRN Reason: Protocol Last Admin: 01/04/18 18:04 Dose: 0.25 mg Alprazolam (Xanax) 0.5 mg PO HS PRN; Protocol PRN Reason: Anxiety/insomnia Last Admin: 01/03/18 21:13 Dose: 0.5 mg Amlodipine Besylate (Norvasc) 5 mg PO DAILY [facility] Last Admin: 01/04/18 09:59 Dose: 5 mg Aspirin (Aspirin Chewable) 81 mg PO DAILY [facility] Last Admin: 01/04/18 09:59 Dose: 81 mg Atorvastatin Calcium (Lipitor) 20 mg PO DIN [facility] Last Admin: 01/04/18 18:04 Dose: 20 mg Famotidine (Pepcid) 40 mg PO HS [facility] Last Admin: 01/03/18 21:10 Dose: 40 mg Folic Acid (Folic Acid) 1 mg PO DAILY [facility] Last Admin: 01/04/18 09:59 Dose: 1 mg Levothyroxine Sodium (Synthroid) 100 mcg PO 0600 [facility] Last Admin: 01/04/18 05:53 Dose: 100 mcg Risperidone (Risperdal Tab) 0.5 mg PO BID [facility] PRN Reason: Protocol Last Admin: 01/04/18 18:04 Dose: 0.5 mg Risperidone (Risperdal Tab) 0.5 mg PO HS [facility] PRN Reason: Protocol Last Admin: 01/03/18 21:14 Dose: 0.5 mg - Labs Labs: 12/26/17 07:00 01/01/18 05:30 PT 12.4 SECONDS (9.4-12.5) 12/29/17 08:00 INR 1.08 (0.93-1.08) 12/29/17 08:00 APTT 32.1 Seconds (25.1-36.5) 12/29/17 08:00 Assessment and Plan - Assessment and Plan (Free Text) Plan: Pt seen and examined. I have reviewed the note of the chief medical director and agree with it. I have discussed the assessment and plan with the resident. I have reviewed the patient's labs and medications. Pt is waiting for fdc placement. She is not on 1:1.
--- NOTE | 2018-01-04 15:39 | CP.PCM.PN ---
Subjective - Date & Time of Evaluation Date of Evaluation: 01/04/18 Time of Evaluation: 13:25 - Subjective Subjective: Comfortable on a chair, no fevers. Objective - Vital Signs/Intake and Output Vital Signs (last 24 hours): Temp Pulse Resp BP Pulse Ox 97.9 F 65 18 125/75 93 L 01/03/18 14:00 01/04/18 09:59 01/03/18 14:00 01/04/18 09:59 01/03/18 14:00 - Medications Medications: Current Medications Acetaminophen (Tylenol 325mg Tab) 650 mg PO Q4H PRN PRN Reason: Pain, Mild (1-3) Alprazolam (Xanax) 0.25 mg PO TID [facility]ÍA PRN Reason: Protocol Last Admin: 01/04/18 09:59 Dose: 0.25 mg Alprazolam (Xanax) 0.5 mg PO HS PRN; Protocol PRN Reason: Anxiety/insomnia Last Admin: 01/03/18 21:13 Dose: 0.5 mg Amlodipine Besylate (Norvasc) 5 mg PO DAILY [facility] Last Admin: 01/04/18 09:59 Dose: 5 mg Aspirin (Aspirin Chewable) 81 mg PO DAILY [facility] Last Admin: 01/04/18 09:59 Dose: 81 mg Atorvastatin Calcium (Lipitor) 20 mg PO DIN [facility] Last Admin: 01/03/18 17:17 Dose: 20 mg Famotidine (Pepcid) 40 mg PO HS [facility] Last Admin: 01/03/18 21:10 Dose: 40 mg Folic Acid (Folic Acid) 1 mg PO DAILY [facility] Last Admin: 01/04/18 09:59 Dose: 1 mg Levothyroxine Sodium (Synthroid) 100 mcg PO 0600 [facility] Last Admin: 01/04/18 05:53 Dose: 100 mcg Risperidone (Risperdal Tab) 0.5 mg PO BID [facility] PRN Reason: Protocol Last Admin: 01/04/18 09:59 Dose: 0.5 mg Risperidone (Risperdal Tab) 0.5 mg PO HS [facility] PRN Reason: Protocol Last Admin: 01/03/18 21:14 Dose: 0.5 mg - Labs Labs: 12/26/17 07:00 01/01/18 05:30 PT 12.4 SECONDS (9.4-12.5) 12/29/17 08:00 INR 1.08 (0.93-1.08) 12/29/17 08:00 APTT 32.1 Seconds (25.1-36.5) 12/29/17 08:00 - Constitutional Appears: Chronically Ill - Head Exam Head Exam: NORMAL INSPECTION - Respiratory Exam Respiratory Exam: Decreased Breath Sounds - Cardiovascular Exam Cardiovascular Exam: +S1, +S2 - GI/Abdominal Exam GI & Abdominal Exam: Soft. absent: Tenderness Assessment and Plan - Assessment and Plan (Free Text) Plan: Assessment S/P UTI with E. coli COPD chronic CHF CVA CAD S/P CABG HTN Plan S/P course of Vantin - will continue to monitor clinically since she is at risk for hospital-acquired infections
[2018-01-05] MEDS: Levothyroxine 100 MCG TAB PO SCH (05:51)
--- NOTE | 2018-01-05 06:01 | CP.PCM.PN ---
Subjective - Date & Time of Evaluation Date of Evaluation: 01/05/18 Time of Evaluation: 06:40 - Subjective Subjective: Sleeping but easily awaken, calm,confuse Reason for consultation and follow up: Cardiac evaluation, history of COPD, history of CHF, history of aortic valve replacement, admitted for altered mental status and failure to thrive Seen and examined by me and Dr. Ellison Objective - Vital Signs/Intake and Output Vital Signs (last 24 hours): Temp Pulse Resp BP Pulse Ox 97.9 F 80 18 159/85 H 92 L 01/04/18 21:50 01/04/18 21:50 01/04/18 21:50 01/04/18 21:50 01/04/18 21:50 Intake and Output: 01/04/18 01/05/18 18:59 06:59 Intake Total 620 Balance 620 - Medications Medications: Current Medications Acetaminophen (Tylenol 325mg Tab) 650 mg PO Q4H PRN PRN Reason: Pain, Mild (1-3) Alprazolam (Xanax) 0.25 mg PO TID ANA [facility]ÍA PRN Reason: Protocol Last Admin: 01/04/18 18:04 Dose: 0.25 mg Alprazolam (Xanax) 0.5 mg PO HS PRN; Protocol PRN Reason: Anxiety/insomnia Last Admin: 01/04/18 21:40 Dose: 0.5 mg Amlodipine Besylate (Norvasc) 5 mg PO DAILY [facility] Last Admin: 01/04/18 09:59 Dose: 5 mg Aspirin (Aspirin Chewable) 81 mg PO DAILY [facility] Last Admin: 01/04/18 09:59 Dose: 81 mg Atorvastatin Calcium (Lipitor) 20 mg PO DIN [facility] Last Admin: 01/04/18 18:04 Dose: 20 mg Famotidine (Pepcid) 40 mg PO HS [facility] Last Admin: 01/04/18 21:40 Dose: 40 mg Folic Acid (Folic Acid) 1 mg PO DAILY [facility] Last Admin: 01/04/18 09:59 Dose: 1 mg Levothyroxine Sodium (Synthroid) 100 mcg PO 0600 [facility] Last Admin: 01/05/18 05:51 Dose: 100 mcg Risperidone (Risperdal Tab) 0.5 mg PO BID [facility] PRN Reason: Protocol Last Admin: 01/04/18 18:04 Dose: 0.5 mg Risperidone (Risperdal Tab) 0.5 mg PO HS [facility] PRN Reason: Protocol Last Admin: 01/04/18 21:40 Dose: 0.5 mg - Labs Labs: 12/26/17 07:00 01/01/18 05:30 PT 12.4 SECONDS (9.4-12.5) 12/29/17 08:00 INR 1.08 (0.93-1.08) 12/29/17 08:00 APTT 32.1 Seconds (25.1-36.5) 12/29/17 08:00 - Constitutional Appears: No Acute Distress - Head Exam Head Exam: NORMOCEPHALIC - Eye Exam Eye Exam: Normal appearance - ENT Exam ENT Exam: Mucous Membranes Moist - Respiratory Exam Respiratory Exam: Clear to Ausculation Bilateral, NORMAL BREATHING PATTERN - Cardiovascular Exam Cardiovascular Exam: +S1, +S2 - GI/Abdominal Exam GI & Abdominal Exam: Soft, Normal Bowel Sounds - Extremities Exam Extremities Exam: Normal Capillary Refill - Neurological Exam Neurological Exam: Alert, Awake Additional comments: confuse - Skin Skin Exam: Dry, Warm Assessment and Plan - Assessment and Plan (Free Text) Assessment: An 82 year old female who was brought to the ER by neighbor due to altered mental status,weakness and fall. Patient was very confused. History of coronary artery disease,CABG 2008, prosthetic aortic valve replacement, history of COPD , CHF, TIA,. CT scan of head upon admission negative for bleeding. Patient was last seen by family last July. She is being taken cared of by neighbor helping out with groceries. Admitted for altered mental status and failure to thrive.ECHO -normal LV size, LVEF 45-50%, mildly impaired LV function, s/p AVR bioprosthetic, no vegetation, mild AR, moderate to severe MR, Mild TR. Improved clinically,awake,alert,confuse with sitter.Awaiting discharge placement. patient lives alone. Plan: Cardiac status stable Controlled blood pressure and heart rate Awaiting acceptance of placement from facility Social service working on discharge placement Continue current medications Continue current treatment Discharge planning Will follow up Plan and treatment discussed with Dr. Ellison
--- NOTE | 2018-01-05 06:49 | CP.PCM.PN ---
<Arin Ott - Last Filed: 01/05/18 06:45> Subjective - Date & Time of Evaluation Date of Evaluation: 01/05/18 Time of Evaluation: 06:45 - Subjective Subjective: Medicine Progress Note For Dr. Rivera, PGY3 Patient seen and examined at bedside. There were no acute overnight events as per nursing staff. Patient did well and was not agitated at all. She was resting comfortably in bed. She denies having any pain, chest pain, shortness of breath, nausea/vomiting/diarrhea, fever/chills, dysuria, hematuria or urinary frequency. Objective - Vital Signs/Intake and Output Vital Signs (last 24 hours): Temp Pulse Resp BP Pulse Ox 97.9 F 80 18 159/85 H 92 L 01/04/18 21:50 01/04/18 21:50 01/04/18 21:50 01/04/18 21:50 01/04/18 21:50 Intake and Output: 01/04/18 01/05/18 18:59 06:59 Intake Total 620 Balance 620 - Medications Medications: Current Medications Acetaminophen (Tylenol 325mg Tab) 650 mg PO Q4H PRN PRN Reason: Pain, Mild (1-3) Alprazolam (Xanax) 0.25 mg PO TID [facility] PRN Reason: Protocol Last Admin: 01/04/18 18:04 Dose: 0.25 mg Alprazolam (Xanax) 0.5 mg PO HS PRN; Protocol PRN Reason: Anxiety/insomnia Last Admin: 01/04/18 21:40 Dose: 0.5 mg Amlodipine Besylate (Norvasc) 5 mg PO DAILY [facility] Last Admin: 01/04/18 09:59 Dose: 5 mg Aspirin (Aspirin Chewable) 81 mg PO DAILY [facility] Last Admin: 01/04/18 09:59 Dose: 81 mg Atorvastatin Calcium (Lipitor) 20 mg PO DIN [facility] Last Admin: 01/04/18 18:04 Dose: 20 mg Famotidine (Pepcid) 40 mg PO HS [facility] Last Admin: 01/04/18 21:40 Dose: 40 mg Folic Acid (Folic Acid) 1 mg PO DAILY [facility] Last Admin: 01/04/18 09:59 Dose: 1 mg Levothyroxine Sodium (Synthroid) 100 mcg PO 0600 [facility] Last Admin: 01/05/18 05:51 Dose: 100 mcg Risperidone (Risperdal Tab) 0.5 mg PO BID [facility] PRN Reason: Protocol Last Admin: 01/04/18 18:04 Dose: 0.5 mg Risperidone (Risperdal Tab) 0.5 mg PO HS [facility] PRN Reason: Protocol Last Admin: 01/04/18 21:40 Dose: 0.5 mg - Labs Labs: 12/26/17 07:00 01/01/18 05:30 PT 12.4 SECONDS (9.4-12.5) 12/29/17 08:00 INR 1.08 (0.93-1.08) 12/29/17 08:00 APTT 32.1 Seconds (25.1-36.5) 12/29/17 08:00 - Constitutional Appears: No Acute Distress - Head Exam Head Exam: ATRAUMATIC, NORMAL INSPECTION, NORMOCEPHALIC - Eye Exam Eye Exam: Normal appearance, PERRL Pupil Exam: NORMAL ACCOMODATION - ENT Exam ENT Exam: Mucous Membranes Moist - Respiratory Exam Respiratory Exam: Clear to Ausculation Bilateral, NORMAL BREATHING PATTERN. absent: Rales, Rhonchi, Wheezes - Cardiovascular Exam Cardiovascular Exam: REGULAR RHYTHM, +S1, +S2. absent: Gallop, Rubs, Murmur - GI/Abdominal Exam GI & Abdominal Exam: Soft, Normal Bowel Sounds. absent: Rigid, Tenderness, Mass , Rebound - Extremities Exam Extremities Exam: Normal Inspection. absent: Calf Tenderness, Pedal Edema - Neurological Exam Neurological Exam: Alert, Awake, CN II-XII Intact. absent: Oriented x3 - Psychiatric Exam Psychiatric exam: Normal Affect, Normal Mood - Skin Skin Exam: Dry, Normal Color, Warm Assessment and Plan - Assessment and Plan (Free Text) Assessment: This is an 82yo female with past medical history of CAD, prosthetic aortic valve , COPD, CHF, TIA who was admitted for 1. AMS (Improved)- but patient unable to make decisions for self - secondary to delirium with underlying dementia - can also be exacerbated with UTI, vitamin B12 deficiency and hypothryoidiam - CT head negative - daughter power of insurance defense attorney 2. UTI (resolved) - s/p antibiotics tx fo4 1 week - Urine culture + for E.coli 3. Vitamin B12 deficiency 4. Hypothyroidism 5. Paroxysmal a.fib - rate controlled 6. CAD 7. Prosthetic aortic valve 8. CHF (last echo 2012) - CXR negative Plan: Patient is NOT on 1:1. She is not agitated. She is doing well on Risperidone and Xanax. Labs and imaging reviewed. We will continue her medication. She is tolerating her diet. She is awaiting residential placement. Patient is at risk for hospital acquired infections at this time. Case seen, discussed and reviewed with Dr. Rivera. Delilah Ott PGY3 <Abrahan Rivera - Last Filed: 01/05/18 17:12> Objective - Vital Signs/Intake and Output Vital Signs (last 24 hours): Temp Pulse Resp BP Pulse Ox 98 F 88 16 145/82 99 01/05/18 06:00 01/05/18 10:36 01/05/18 06:00 01/05/18 10:36 01/05/18 06:00 Intake and Output: 01/05/18 01/05/18 06:59 18:59 Intake Total 620 Balance 620 - Medications Medications: Current Medications Acetaminophen (Tylenol 325mg Tab) 650 mg PO Q4H PRN PRN Reason: Pain, Mild (1-3) Alprazolam (Xanax) 0.25 mg PO TID [facility] PRN Reason: Protocol Last Admin: 01/05/18 14:07 Dose: 0.25 mg Alprazolam (Xanax) 0.5 mg PO HS PRN; Protocol PRN Reason: Anxiety/insomnia Last Admin: 01/04/18 21:40 Dose: 0.5 mg Amlodipine Besylate (Norvasc) 5 mg PO DAILY [facility] Last Admin: 01/05/18 10:36 Dose: 5 mg Aspirin (Aspirin Chewable) 81 mg PO DAILY [facility] Last Admin: 01/05/18 10:36 Dose: 81 mg Atorvastatin Calcium (Lipitor) 20 mg PO DIN [facility] Last Admin: 01/04/18 18:04 Dose: 20 mg Famotidine (Pepcid) 40 mg PO HS [facility] Last Admin: 01/04/18 21:40 Dose: 40 mg Folic Acid (Folic Acid) 1 mg PO DAILY [facility] Last Admin: 01/05/18 10:36 Dose: 1 mg Levothyroxine Sodium (Synthroid) 100 mcg PO 0600 [facility] Last Admin: 01/05/18 05:51 Dose: 100 mcg Risperidone (Risperdal Tab) 0.5 mg PO BID [facility] PRN Reason: Protocol Last Admin: 01/05/18 10:36 Dose: 0.5 mg Risperidone (Risperdal Tab) 0.5 mg PO HS [facility] PRN Reason: Protocol Last Admin: 01/04/18 21:40 Dose: 0.5 mg - Labs Labs: 12/26/17 07:00 01/01/18 05:30 PT 12.4 SECONDS (9.4-12.5) 12/29/17 08:00 INR 1.08 (0.93-1.08) 12/29/17 08:00 APTT 32.1 Seconds (25.1-36.5) 12/29/17 08:00 Assessment and Plan - Assessment and Plan (Free Text) Plan: Pt seen and examined. I have reviewed the note of the diagnostic medical sonographer and agree with it. I have discussed the assessment and plan with the resident. I have reviewed the patient's labs and medications. Pt waiting to go to [place]. She is eating well. No pain.
[2018-01-05 23:03] VITALS: RESP 18
--- NOTE | 2018-01-06 03:59 | PN ---
DATE: 01/05/2018 SUBJECTIVE: Patient seen earlier today in 576, bed 2, and patient is clinically stable. No fevers. No chills. PHYSICAL EXAMINATION: VITAL SIGNS: Temperature is 98, blood pressure is 140/80, respiratory rate of 18, heart rate of 63. HEENT: Unremarkable. NECK: Supple. LUNGS: Have decreased breath sounds. HEART: Normal S1 and S2. ABDOMEN: Soft and nontender. LABORATORY DATA: Reveals a white count of 7.8, hemoglobin of , platelets of 139. Chemistries reveals a BUN of 31, creatinine of 0.9. Urinalysis is noted. Microbiology reveals E. coli in the urine, pansensitive. ASSESSMENT AND PLAN: An 82-year-old female, status post urinary tract infection with Escherichia coli, chronic obstructive lung disease, chronic congestive heart failure, cerebrovascular accident, coronary artery disease, status post coronary bypass graft, hypertension, . Review of orders reveals the patient is off of antibiotics. She is afebrile. Normal white count. Patient is at risk for developing nosocomial infections. Kd Teran MD
[2018-01-06] MEDS: Levothyroxine 100 MCG TAB PO SCH ×2 (05:14→05:15)
--- NOTE | 2018-01-06 06:33 | CP.PCM.PN ---
Subjective - Date & Time of Evaluation Date of Evaluation: 01/06/18 Time of Evaluation: 06:20 - Subjective Subjective: Awake, alert, seem to be sluggish in movement, no distress Reason for consultation and follow up: Cardiac evaluation, history of COPD, history of CHF, history of aortic valve replacement, admitted for altered mental status and failure to thrive Seen and examined by me and Dr. Ellison Objective - Vital Signs/Intake and Output Vital Signs (last 24 hours): Temp Pulse Resp BP Pulse Ox 97.9 F 92 H 18 138/62 93 L 01/05/18 23:02 01/05/18 23:02 01/05/18 23:02 01/05/18 23:02 01/05/18 23:02 Intake and Output: 01/05/18 01/06/18 18:59 06:59 Intake Total 780 Balance 780 - Medications Medications: Current Medications Acetaminophen (Tylenol 325mg Tab) 650 mg PO Q4H PRN PRN Reason: Pain, Mild (1-3) Alprazolam (Xanax) 0.25 mg PO TID ANA MARÍA PRN Reason: Protocol Last Admin: 01/05/18 17:56 Dose: 0.25 mg Alprazolam (Xanax) 0.5 mg PO HS PRN; Protocol PRN Reason: Anxiety/insomnia Last Admin: 01/04/18 21:40 Dose: 0.5 mg Amlodipine Besylate (Norvasc) 5 mg PO DAILY [facility] Last Admin: 01/05/18 10:36 Dose: 5 mg Aspirin (Aspirin Chewable) 81 mg PO DAILY [facility] Last Admin: 01/05/18 10:36 Dose: 81 mg Atorvastatin Calcium (Lipitor) 20 mg PO DIN [facility] Last Admin: 01/05/18 17:56 Dose: 20 mg Famotidine (Pepcid) 40 mg PO HS [facility] Last Admin: 01/05/18 21:03 Dose: 40 mg Folic Acid (Folic Acid) 1 mg PO DAILY [facility] Last Admin: 01/05/18 10:36 Dose: 1 mg Levothyroxine Sodium (Synthroid) 100 mcg PO 0600 [facility] Last Admin: 01/06/18 05:15 Dose: 100 mcg Risperidone (Risperdal Tab) 0.5 mg PO BID ANA MARÍA PRN Reason: Protocol Last Admin: 01/05/18 17:56 Dose: 0.5 mg Risperidone (Risperdal Tab) 0.5 mg PO HS ANA MARÍA PRN Reason: Protocol Last Admin: 01/05/18 21:04 Dose: 0.5 mg - Labs Labs: 12/26/17 07:00 01/01/18 05:30 PT 12.4 SECONDS (9.4-12.5) 12/29/17 08:00 INR 1.08 (0.93-1.08) 12/29/17 08:00 APTT 32.1 Seconds (25.1-36.5) 12/29/17 08:00 - Constitutional Appears: No Acute Distress - Eye Exam Eye Exam: Normal appearance - ENT Exam ENT Exam: Mucous Membranes Moist - Respiratory Exam Respiratory Exam: Clear to Ausculation Bilateral - Cardiovascular Exam Cardiovascular Exam: +S1, +S2 - GI/Abdominal Exam GI & Abdominal Exam: Soft, Normal Bowel Sounds - Extremities Exam Extremities Exam: Normal Capillary Refill - Neurological Exam Neurological Exam: Alert, Awake Additional comments: sluggish in movement - Skin Skin Exam: Dry, Warm Assessment and Plan - Assessment and Plan (Free Text) Assessment: An 82 year old female who was brought to the ER by neighbor due to altered mental status,weakness and fall. Patient was very confused. History of coronary artery disease,CABG 2008, prosthetic aortic valve replacement, history of COPD , CHF, TIA,. CT scan of head upon admission negative for bleeding. Patient was last seen by family last July. She is being taken cared of by neighbor helping out with groceries. Admitted for altered mental status and failure to thrive.ECHO -normal LV size, LVEF 45-50%, mildly impaired LV function, s/p AVR bioprosthetic, no vegetation, mild AR, moderate to severe MR, Mild TR. Improved clinically,awake,alert,confuse with sitter.Awaiting discharge placement. patient lives alone. Plan: Awake, alert but sluggish in movement RN claimed sleeping more during the day Will adjust Risperdal dose Cardiac status stable Controlled blood pressure and heart rate Awaiting acceptance of placement from facility Social service working on discharge placement Continue current medications Continue current treatment Discharge planning Will follow up Plan and treatment discussed with Dr. Ellison
--- NOTE | 2018-01-06 06:46 | CP.PCM.PN ---
<Arin Ott - Last Filed: 01/06/18 08:53> Subjective - Date & Time of Evaluation Date of Evaluation: 01/06/18 Time of Evaluation: 07:00 - Subjective Subjective: Medicine Progress Note for Dr. Rivera. Delilah Ott PGY3 Patient seen and examined at bedside. There were no acute overnight events as per nursing staff. Patient is resting in bed. She denies chest pain, shortness of breath, nausea/vomiting/diarrhea, fever/chills, dysuria/hematuria, numbness or tingling. Objective - Vital Signs/Intake and Output Vital Signs (last 24 hours): Temp Pulse Resp BP Pulse Ox 97.9 F 92 H 18 138/62 93 L 01/05/18 23:02 01/05/18 23:02 01/05/18 23:02 01/05/18 23:02 01/05/18 23:02 Intake and Output: 01/05/18 01/06/18 18:59 06:59 Intake Total 780 Balance 780 - Medications Medications: Current Medications Acetaminophen (Tylenol 325mg Tab) 650 mg PO Q4H PRN PRN Reason: Pain, Mild (1-3) Alprazolam (Xanax) 0.25 mg PO TID ANA MARÍA PRN Reason: Protocol Last Admin: 01/05/18 17:56 Dose: 0.25 mg Alprazolam (Xanax) 0.5 mg PO HS PRN; Protocol PRN Reason: Anxiety/insomnia Last Admin: 01/04/18 21:40 Dose: 0.5 mg Amlodipine Besylate (Norvasc) 5 mg PO DAILY [facility] Last Admin: 01/05/18 10:36 Dose: 5 mg Aspirin (Aspirin Chewable) 81 mg PO DAILY [facility] Last Admin: 01/05/18 10:36 Dose: 81 mg Atorvastatin Calcium (Lipitor) 20 mg PO DIN [facility] Last Admin: 01/05/18 17:56 Dose: 20 mg Famotidine (Pepcid) 40 mg PO HS [facility] Last Admin: 01/05/18 21:03 Dose: 40 mg Folic Acid (Folic Acid) 1 mg PO DAILY [facility] Last Admin: 01/05/18 10:36 Dose: 1 mg Levothyroxine Sodium (Synthroid) 100 mcg PO 0600 [facility] Last Admin: 07/18/18 05:15 Dose: 100 mcg Risperidone (Risperdal Tab) 0.5 mg PO BID ANA MARÍA PRN Reason: Protocol Last Admin: 01/05/18 17:56 Dose: 0.5 mg Risperidone (Risperdal Tab) 0.5 mg PO HS ANA MARÍA PRN Reason: Protocol Last Admin: 01/05/18 21:04 Dose: 0.5 mg - Labs Labs: 12/26/17 07:00 01/01/18 05:30 PT 12.4 SECONDS (9.4-12.5) 12/29/17 08:00 INR 1.08 (0.93-1.08) 12/29/17 08:00 APTT 32.1 Seconds (25.1-36.5) 12/29/17 08:00 - Constitutional Appears: No Acute Distress - Head Exam Head Exam: ATRAUMATIC, NORMAL INSPECTION, NORMOCEPHALIC - Eye Exam Eye Exam: Normal appearance, PERRL Pupil Exam: NORMAL ACCOMODATION, PERRL - ENT Exam ENT Exam: Mucous Membranes Moist - Respiratory Exam Respiratory Exam: Clear to Ausculation Bilateral, NORMAL BREATHING PATTERN. absent: Rales, Rhonchi, Wheezes - Cardiovascular Exam Cardiovascular Exam: REGULAR RHYTHM, +S1, +S2. absent: Gallop, Rubs, Murmur - GI/Abdominal Exam GI & Abdominal Exam: Soft, Normal Bowel Sounds. absent: Rigid, Tenderness, Mass , Rebound - Extremities Exam Extremities Exam: Normal Inspection. absent: Calf Tenderness, Pedal Edema - Neurological Exam Neurological Exam: Alert, Awake, CN II-XII Intact. absent: Oriented x3 - Psychiatric Exam Psychiatric exam: Normal Affect, Normal Mood - Skin Skin Exam: Dry, Intact, Warm Assessment and Plan - Assessment and Plan (Free Text) Assessment: This is an 82yo female with past medical history of CAD, prosthetic aortic valve , COPD, CHF, TIA who was admitted for 1. 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 UTI (resolved) - s/p antibiotics tx fo4 1 week - Urine culture + for E.coli 3. Vitamin B12 deficiency 4. Hypothyroidism 5. Paroxysmal a.fib - rate controlled 6. CAD 7. Prosthetic aortic valve 8. CHF (last echo 2012) - CXR negative Plan: Patient is pleasant and doing well. She is confused, but is controlled on Risperidone and Xanax. Continue her medication. She is tolerating her diet. Patient is going to the [facility] today. Please refer to the previous discharge summary for further information. Case seen, discussed and reviewed with Dr. Rivera. Delilah Ott PGY3 <Abrahan Rivera - Last Filed: 01/06/18 21:07> Objective - Vital Signs/Intake and Output Vital Signs (last 24 hours): Temp Pulse Resp BP Pulse Ox 98 F 85 18 138/78 96 01/06/18 06:00 01/06/18 09:48 01/06/18 06:00 01/06/18 09:48 01/06/18 06:00 - Labs Labs: 12/26/17 07:00 01/01/18 05:30 PT 12.4 SECONDS (9.4-12.5) 12/29/17 08:00 INR 1.08 (0.93-1.08) 12/29/17 08:00 APTT 32.1 Seconds (25.1-36.5) 12/29/17 08:00 Assessment and Plan - Assessment and Plan (Free Text) Plan: Pt seen and examined. I have reviewed the note of the medical director/head team physician and agree with it. I have discussed the assessment and plan with the resident. I have reviewed the patient's labs and medications. Pt is going to [place] today. She is off 1:1. The pt's son called the office and was advised to speak to his sister regarding any info that he is requesting. He had difficulty in expressing himself and answering questions with my staff in my office.
[2018-01-06 09:05] VITALS: BP 138/78; PULSE 85; TEMP 98; O2SAT 96
--- NOTE | 2018-01-06 15:38 | PN ---
DATE: 01/06/2018 REASON FOR ADDENDUM: We will signoff the case. We would like to follow p.r.n. Since patient is hemodynamically stable, no active cardiac issue, we will signoff and would like to follow p.r.n. Lakeisha Ellison MD
--- NOTE | 2018-01-06 16:24 | CP.PCM.PN ---
Subjective - Date & Time of Evaluation Date of Evaluation: 01/06/18 Time of Evaluation: 11:45 - Subjective Subjective: Comfortable in bed, afebrile. Objective - Vital Signs/Intake and Output Vital Signs (last 24 hours): Temp Pulse Resp BP Pulse Ox 98 F 85 18 138/78 96 01/06/18 06:00 01/06/18 09:48 01/06/18 06:00 01/06/18 09:48 01/06/18 06:00 Intake and Output: 01/06/18 01/06/18 06:59 18:59 Intake Total 780 Balance 780 - Medications Medications: Current Medications Acetaminophen (Tylenol 325mg Tab) 650 mg PO Q4H PRN PRN Reason: Pain, Mild (1-3) Alprazolam (Xanax) 0.25 mg PO TID ANA MARÍA PRN Reason: Protocol Last Admin: 01/06/18 09:48 Dose: 0.25 mg Alprazolam (Xanax) 0.5 mg PO HS PRN; Protocol PRN Reason: Anxiety/insomnia Last Admin: 01/04/18 21:40 Dose: 0.5 mg Amlodipine Besylate (Norvasc) 5 mg PO DAILY [facility] Last Admin: 01/06/18 09:48 Dose: 5 mg Aspirin (Aspirin Chewable) 81 mg PO DAILY [facility] Last Admin: 01/06/18 09:48 Dose: 81 mg Atorvastatin Calcium (Lipitor) 20 mg PO DIN [facility] Last Admin: 01/05/18 17:56 Dose: 20 mg Famotidine (Pepcid) 40 mg PO HS [facility] Last Admin: 01/05/18 21:03 Dose: 40 mg Folic Acid (Folic Acid) 1 mg PO DAILY [facility] Last Admin: 01/06/18 09:48 Dose: 1 mg Levothyroxine Sodium (Synthroid) 100 mcg PO 0600 [facility] Last Admin: 01/06/18 05:15 Dose: 100 mcg Risperidone (Risperdal Tab) 0.5 mg PO HS ANA MARAÍ PRN Reason: Protocol Last Admin: 01/05/18 21:04 Dose: 0.5 mg Risperidone (Risperdal Tab) 0.25 mg PO DAILY ANA MARÍA PRN Reason: Protocol Last Admin: 01/06/18 09:48 Dose: 0.25 mg - Labs Labs: 12/26/17 07:00 01/01/18 05:30 PT 12.4 SECONDS (9.4-12.5) 12/29/17 08:00 INR 1.08 (0.93-1.08) 12/29/17 08:00 APTT 32.1 Seconds (25.1-36.5) 12/29/17 08:00 - Constitutional Appears: Chronically Ill - Head Exam Head Exam: NORMAL INSPECTION - Respiratory Exam Respiratory Exam: Decreased Breath Sounds - Cardiovascular Exam Cardiovascular Exam: +S1, +S2 - GI/Abdominal Exam GI & Abdominal Exam: Soft. absent: Tenderness Assessment and Plan - Assessment and Plan (Free Text) Plan: Assessment S/P UTI with E. coli COPD chronic CHF CVA CAD S/P CABG HTN Plan S/P course of Vantin - will continue to monitor clinically since she is at risk for healthcare-associated infections
== END 2018-01-06 16:00 | DRG 689 ==
LOC: ED 08:54 → ERH 13:04 → 5RSO 14:38
PROVIDERS: ADMIT Internal Medicine Nephrology; ATTEND Internal Medicine Nephrology
DX: N39.0 Urinary tract infection, site not specified (principal); I50.33 Acute on chronic diastolic (congestive) heart failure; F05 Delirium due to known physiological condition; R44.3 Hallucinations, unspecified; B96.20 Unspecified Escherichia coli [E. coli] as the cause of diseases classified elsewhere; E53.8 Deficiency of other specified B group vitamins; E03.9 Hypothyroidism, unspecified; E78.00 Pure hypercholesterolemia, unspecified; E78.5 Hyperlipidemia, unspecified; F01.50 Vascular dementia, unspecified severity, without behavioral disturbance, psychotic disturbance, mood disturbance, and anxiety; F17.200 Nicotine dependence, unspecified, uncomplicated; F41.9 Anxiety disorder, unspecified; I11.0 Hypertensive heart disease with heart failure; I25.10 Atherosclerotic heart disease of native coronary artery without angina pectoris; I48.0 Paroxysmal atrial fibrillation; I48.2 Chronic atrial fibrillation; J44.9 Chronic obstructive pulmonary disease, unspecified; R62.7 Adult failure to thrive; W19.XXXA Unspecified fall, initial encounter; Z63.8 Other specified problems related to primary support group; Z79.82 Long term (current) use of aspirin; Z79.899 Other long term (current) drug therapy; Z86.73 Personal history of transient ischemic attack (TIA), and cerebral infarction without residual deficits; Z91.14 Patient's other noncompliance with medication regimen; Z95.1 Presence of aortocoronary bypass graft; Z95.3 Presence of xenogenic heart valve